=== PATIENT | male | born 1950 | race Caucasian/White ===

== ENCOUNTER 2020-11-28 02:25 | Day surgery (SDC) | payer MEDICARE, SELFPAY ==
[2020-11-28] VITALS (11 sets, daily range): BP systolic 84–119; BP diastolic 43–63; PULSE 62–86; RESP 15–21; TEMP 36.8; O2SAT 93–100; BMI 32.8
--- NOTE | 2020-11-28 09:23 | WPDMODSED ---
Moderate Sedation Note-Pt Data Patient Data Diagnosis: CVA, history of TAVR Present Complaint: As above Procedure to be performed/Plan: 1. Multiplanar transesophageal echocardiography with pulse wave, color flow Doppler 2. Agitated saline study 3. Moderate sedation Allergies Allergy/AdvReac Type Severity Reaction Status Date / Time No Known Allergies Allergy Verified 11/11/20 11:24 Home Medications Medication Instructions Recorded Confirmed Type aspirin 81 mg tablet,delayed 81 mg PO DAILY 01/25/19 11/11/20 History release cetirizine 10 mg tablet 10 mg PO DAILY PRN tablet 01/25/19 11/11/20 History fluticasone furoate 27.5 2 spray NASAL DAILY 01/25/19 11/11/20 History mcg/actuation nasal spray,suspension metformin 1,000 mg tablet 1,000 mg PO BID 01/25/19 11/11/20 History budesonide-formoterol HFA 80 2 puff INHALATION Q12H 04/26/20 11/11/20 History mcg-4.5 mcg/actuation aerosol inhaler empagliflozin 25 mg tablet 25 mg PO DAILY 04/26/20 11/11/20 History lisinopril 40 mg tablet 40 mg PO DAILY 04/26/20 11/11/20 History tiotropium bromide 1.25 2 puff INHALATION DAILY 04/26/20 11/11/20 History mcg/actuation mist for inhalation albuterol sulfate 90 mcg/actuation 1 inh INHALATION Q4H 11/01/20 11/11/20 History aerosol inhaler apixaban 5 mg tablet 5 mg PO BID 11/01/20 11/11/20 History atorvastatin 80 mg tablet 40 mg PO DAILY tablet 11/01/20 11/11/20 History cilostazol 50 mg tablet 50 mg PO BID 11/01/20 11/11/20 History insulin aspart U-100 100 unit/mL 5 unit SUB-Q BID ml 11/01/20 11/11/20 History (3 mL) subcutaneous pen insulin degludec 100 unit/mL (3 14 unit SUB-Q DAILY ml 11/01/20 11/11/20 History mL) subcutaneous pen metoprolol tartrate 25 mg tablet 12.5 mg PO BID tablet 11/01/20 11/11/20 History ergocalciferol (vitamin D2) 1,250 50,000 unit PO WEEKLY #12 cap 11/23/20 Rx mcg (50,000 unit) capsule finasteride 5 mg tablet 5 mg PO DAILY #90 tablet 11/23/20 Rx Sedation/Anesthesia: No previous sedation/anesthesia problems (including family history). [facility] Past Medical History Medical History Allergic rhinitis Atherosclerotic heart disease of [place] coronary artery without angina pectoris Chronic obstructive pulmonary disease, unspecified CVA (cerebral vascular accident) Malignant neoplasm of prostate Other hyperlipidemia PVD (peripheral vascular disease) Type 2 diabetes mellitus with other circulatory complications Surgical History Surgical History History of colonoscopy Hx of tonsillectomy Family History Family History Mother Cerebrovascular accident Family history of diabetes mellitus in first degree relative Other Acute myocardial infarction Diabetes mellitus Family history of cardiovascular disease Social History Social History Smoking status: Current every day smoker Second hand tobacco smoke exposure: Yes Alcohol intake: current Substance use: never Substance use type: does not use Gender identity (if verbalized by the patient): Male Mod Sed Physical Exam Physical Exam Pre Procedural Exam: Normal: Appearance, Eyes, Ears, Nose, Neck, Airway, Lungs, Heart Size, Heart Rate, Heart Rhythm, Neuro Exam, Extremities and Skin and Variation: Throat (Poor dentition) Hours since solid foods: 12 Hours since liquid intake: 12 Mallampati Classification: class II ASA Classification/Sedation ASA Classification/Sedation ASA Class: II Emergent: No Risks: Risks, benefits and alternatives explained and patient/family accepted plan for sedation. Patient re-evaluated immediately prior to sedation.
--- NOTE | 2020-11-28 09:25 | PM.IMHP ---
H&P: HPI History of Present Illness Date/Time: 11/28/20 09:25 Chief Complaint: History of stroke. Narrative: 70-year-old with coronary disease and history of stroke. He also has a pacemaker. Recent TAVR. Here for ARVIND further evaluation of his CVA Review of Systems Review of Systems: All systems reviewed & are unremarkable except as noted in HPI and below PMFSH Past Medical History Medical History Allergic rhinitis Atherosclerotic heart disease of [place] coronary artery without angina pectoris Chronic obstructive pulmonary disease, unspecified CVA (cerebral vascular accident) Malignant neoplasm of prostate Other hyperlipidemia PVD (peripheral vascular disease) Type 2 diabetes mellitus with other circulatory complications Surgical History Surgical History History of colonoscopy Hx of tonsillectomy Family History Family History Mother Cerebrovascular accident Family history of diabetes mellitus in first degree relative Other Acute myocardial infarction Diabetes mellitus Family history of cardiovascular disease Social History Social History Smoking status: Current every day smoker Second hand tobacco smoke exposure: Yes Alcohol intake: current Substance use: never Substance use type: does not use Gender identity (if verbalized by the patient): Male Meds Home Medications and Allergies Home Medications Medication Instructions Recorded Confirmed Type aspirin 81 mg tablet,delayed 81 mg PO DAILY 01/25/19 11/11/20 History release cetirizine 10 mg tablet 10 mg PO DAILY PRN tablet 01/25/19 11/11/20 History fluticasone furoate 27.5 2 spray NASAL DAILY 01/25/19 11/11/20 History mcg/actuation nasal spray,suspension metformin 1,000 mg tablet 1,000 mg PO BID 01/25/19 11/11/20 History budesonide-formoterol HFA 80 2 puff INHALATION Q12H 04/26/20 11/11/20 History mcg-4.5 mcg/actuation aerosol inhaler empagliflozin 25 mg tablet 25 mg PO DAILY 04/26/20 11/11/20 History lisinopril 40 mg tablet 40 mg PO DAILY 04/26/20 11/11/20 History tiotropium bromide 1.25 2 puff INHALATION DAILY 04/26/20 11/11/20 History mcg/actuation mist for inhalation albuterol sulfate 90 mcg/actuation 1 inh INHALATION Q4H 11/01/20 11/11/20 History aerosol inhaler apixaban 5 mg tablet 5 mg PO BID 11/01/20 11/11/20 History atorvastatin 80 mg tablet 40 mg PO DAILY tablet 11/01/20 11/11/20 History cilostazol 50 mg tablet 50 mg PO BID 11/01/20 11/11/20 History insulin aspart U-100 100 unit/mL 5 unit SUB-Q BID ml 11/01/20 11/11/20 History (3 mL) subcutaneous pen insulin degludec 100 unit/mL (3 14 unit SUB-Q DAILY ml 11/01/20 11/11/20 History mL) subcutaneous pen metoprolol tartrate 25 mg tablet 12.5 mg PO BID tablet 11/01/20 11/11/20 History ergocalciferol (vitamin D2) 1,250 50,000 unit PO WEEKLY #12 cap 11/23/20 Rx mcg (50,000 unit) capsule finasteride 5 mg tablet 5 mg PO DAILY #90 tablet 11/23/20 Rx Allergies Allergy/AdvReac Type Severity Reaction Status Date / Time No Known Allergies Allergy Verified 11/11/20 11:24 Exam Narrative: Alert Const: General: comfortable and no acute distress HENMT: General nose exam: no epistaxis Eyes: Sclera: sclerae normal Neck: Neck: no JVD Resp: Auscultation: clear to auscultation bilaterally Cardio: Rate: regular rate GI: GI Palp: Yes Soft to palpation Skin: General skin exam: normal color Neuro: Speech: normal speech Extrem: General: normal to inspection Psych: Mental Status: mental status grossly normal Assessment and Plan Assessment and plan (1) S/P TAVR (transcatheter aortic valve replacement): Code(s): Z95.2 - Presence of prosthetic heart valve Status: Acute (2) History of CVA (cerebrov
[2020-11-28 11:01] LABS: Glucose Point of Care 104 mg/dl (65-105)
--- NOTE | 2020-11-28 11:02 | P.PCNTEE_ITS ---
ARVIND TransEsophageal Echocardiogram Date of procedure: 11/28/20 Procedure Type: 1. Multiplanar transesophageal echocardiography with pulse wave and color-flow Doppler 2. Agitated saline study 3. Moderate sedation Diagnosis: 1. CVA, history of TAVR Indications: CVA, history of TAVR, coronary disease Image Quality: Good Findings: After discussing risks, benefits alternatives of the procedure the patient agreeable via verbal and written informed consent. Risks discussed included esophageal rupture perforation, bleeding, sore throat, need for emergent surgery, . Informed consent was signed by patient as well as patient's After establishing continuous telemetry monitoring, pulse ox Landon and serial blood pressure assessments, time-out was taken and procedure was started. Procedure start time 10:18 a.m. Procedure stop time 10:35 a.m. Medications used 2 mg of Versed and 25 mcg fentanyl given in divided dosages Patient was monitored and medications were administered by Kimber Sadler RN Complications: None Blood loss: None Findings: Normal left ventricular size and function with mild LVH. Ejection fraction estimated 60-65%. Normal left and right atrial sizes. Normal right ventricular size and function. Pacemaker wires are noted renal the right-sided chambers. Left atrial appendage is normal without mass or thrombus of pulse- wave velocities of greater than 100 centimeters/second. Mitral valve appears normal with mild mitral regurgitation. The aortic valve bioprosthesis is present and appears normal. Leaflets are opening normally. No aortic insufficiency. Tricuspid valve is normal with mild tricuspid regurgitation. Pulmonic valve is grossly normal without significant pulmonic insufficiency. Atrial septum is thin and hypermobile with agitated saline evidence of shunting consistent with a small PFO. No pericardial effusion. Aortic root is grossly normal and there is mild artherosclerotic plaquing seen within the aorta itself. Conclusions: 1. Normal left ventricular size and function 2. Mild tricuspid and mitral regurgitation 3. Aortic valve bioprosthesis appears normal 4. Positive agitated saline study consistent with a patent foramen ovale 5. Moderate sedation
--- NOTE | 2020-11-28 13:11 | SUR.PHASEII ---
1130 Viji Morales DIRECTOR OF ACADEMIC SUPPORT notified that pts pressure has been soft post ARVIND. 150ml NS bolus given per her request, pt to be discharged when SBP>100. 1245 D/C instructions reviewed with patient and pts , questions answered both verbalize understanding, IV d/c'd, cath intact, pressure applied, no bleeding noted. Pt transported via wheelchair to [facility] where his drove him home in private vehicle.
== END 2020-11-28 13:00 | disposition home or self-care (01) ==
PROVIDERS: PCP Family Medicine; Visit Provider Internal Medicine Cardiovascular Disease
PROC: (CPT 93312; principal; 2020-11-28 10:00)
DX: I25.10 Atherosclerotic heart disease of native coronary artery without angina pectoris (principal); I34.0 Nonrheumatic mitral (valve) insufficiency; I36.1 Nonrheumatic tricuspid (valve) insufficiency; J44.9 Chronic obstructive pulmonary disease, unspecified; E78.5 Hyperlipidemia, unspecified; E11.51 Type 2 diabetes mellitus with diabetic peripheral angiopathy without gangrene; Z95.2 Presence of prosthetic heart valve; Z79.01 Long term (current) use of anticoagulants; Z79.82 Long term (current) use of aspirin; Z79.84 Long term (current) use of oral hypoglycemic drugs; Z79.51 Long term (current) use of inhaled steroids; Z79.4 Long term (current) use of insulin; Z86.73 Personal history of transient ischemic attack (TIA), and cerebral infarction without residual deficits; Z85.46 Personal history of malignant neoplasm of prostate; Z72.0 Tobacco use
CPT/HCPCS: 82948; 93312; 93320; 93325; J2250; J3010; J7040

== ENCOUNTER 2021-03-01 08:42 | Outpatient (RCR) | payer OTHER, SELFPAY ==
--- NOTE | 2021-03-01 10:26 | PTOPEVAL ---
Thank you for referring William Garcia to [facility].? The patient is scheduled to be seen for therapy? _2___x/week for 8 visits. Please review, sign, date and return this plan of care FUNMILAYO. I agree with and certify that the following plan of care is medically necessary. Referring Physician Date Admitting Provider: Attending Provider: DANIEL LILLY Referring Provider: *PT Outpatient Evaluation Start: 03/01/21 09:10 Freq: Status: Active Protocol: Document 03/01/21 09:11 [place] (Rec: 03/01/21 10:25 [place] [email or web address]) Therapy Assessment Status Assessment Status Assessment Status Evaluation Evaluation Information Problem Diagnosis weakness, post CVA Onset 11/02/20 Subjective Information Pt. is present. She Query Text:As Reported By Patient/ reports that pt. demonstrated Family stroke symptoms on 11/02/20, and was discarhged from the hospital in 24 hours. He suffered similar symptoms on . He was sent to [facility] and underwent testing. He was again discharged from the hospital within 24 hours. Pt. states that pt. is capable of feeding and dressing himself. He reports that he is walking with a cane currently. Pt. reports that he uses his cane mostly for going up and down the steps. He reports that he no longer drives. He was completing house work prior to the stroke and no longer participates in outdoor work. He reports that his goal is to be able to return to all his normal activities. Prior Level of Function Activity Level (Last 3 Months) Occupation retired Hand Dominance Right Activity of Daily Living Ability Independent Indoor/Home Mobility Needs Some Help Community Mobility Needs Some Help Stairs Ability Independent Functional Cognition (Planning, Shopping Needs Some Help , Taking Medications) Cooking No Cleaning No Laundry No Shopping No Driving No Comments Additional Prior Level of Function Pt.
--- NOTE | 2021-03-01 11:08 | OTOPEVAL ---
Thank you for referring William Garcia to [facility].? The patient is scheduled to be seen for therapy? ____x/week for ___ weeks. Please review, sign, date and return this plan of care FUNMILAYO. I agree with and certify that the following plan of care is medically necessary. Referring Physician Date Admitting Provider: Attending Provider: DANIEL LLILY Referring Provider: *OT Outpatient Evaluation Start: 03/01/21 09:35 Freq: Status: Active Protocol: Document 03/01/21 09:36 [facility] (Rec: 03/01/21 11:07 [facility] [place] [id number]) Therapy Assessment Status Assessment Status Assessment Status Evaluation Outpatient Past Medical History Cardiovascular History Hx Pacemaker Yes Evaluation Information Problem Diagnosis B UE weakness Onset 11/02/20 Cause CVA Subjective Information Patient transitions from PT Query Text:As Reported By Patient/ evaluation to OT with his Family present. They report that patient presented with stroke symptoms on 11/02/20 and 11/20/20 and was discharged from hospital within 24 hours after each episode. Patient and his report that since the onset in October he has not been driving, is forgetful and more sedentary. Both patient and his report goal of having patient be able to do more. They also mention concerns with patient's memory , specifically short term memory. Prior Level of Function Activity Level (Last 3 Months) Occupation retired Hand Dominance Right Activity of Daily Living Ability Independent Indoor/Home Mobility Independent Community Mobility Independent Stairs Ability Independent Functional Cognition (Planning, Shopping Independent , Taking Medications) Cooking Yes Cleaning No Laundry No Shopping Yes Driving Yes Home Setting Home Type House Environmental Barriers Stairs, 2-4 Living Situation With Spouse Mobility Assistive Devices (Used Last 3 Cane Months) Bathroom Environment Bathtub, Standard Prior Cognition/Communication Prior Communication Level No Impa
--- NOTE | 2021-07-18 16:38 | PCOTNOTE ---
Patient completed 2/4 OT sessions and did not schedule additional sessions. See last treatment note for status at time of discharge. MS
== END 2021-03-23 10:19 | disposition home or self-care (01) ==
LOC: CHSPT 08:42
DX: M62.81 Muscle weakness (generalized) (principal)
CPT/HCPCS: 97110; 97112; 97161; 97165; 97530

== ENCOUNTER 2024-11-12 11:14 | Outpatient (CLI) | payer MEDICARE, SELFPAY ==
--- OUTSIDE RECORDS SUMMARY | 2018-05-14 05:00 | XMS_ITS | Continuity of Care Document ---
Author Organization [facility] Address [address] [place] [address] Phone Care Team Providers Care Parks Recreation Coordinator Name Role Phone Marc Smiley MD Unavailable Unavailable Allergies, Adverse Reactions, Alerts Substance Reaction Status Criticality No Known Allergies Active No Inform ation Medications Medication Instructions Dosage Effective Dates (start - stop) Status Comments CILOSTAZOL (unknown strength) take 2 tablet by oral route 2 times every day 1/2 hour before or 2 hours after breakfast and dinner Not Available - Active METOPROLOL SUCCINATE (unknown strength) take 1 tablet by oral route every day Not Available - Active LISINOPRIL (unknown strength) take 1 tablet by oral route every day Not Available - Active FINASTERIDE (unknown strength) take 1 tablet by oral route every day Not Available - Active ATORVASTATIN CALCIUM (unknown strength) take 1 tablet by oral route every day Not Available - Active aspirin 81 mg chewable tablet chew 1 tablet by oral route every day 81 MG - Active ProAir HFA 90 mcg/actuation aerosol inhaler inhale 2 puff by inhalation route every 4 - 6 hours as needed - Active VITAMIN D2 (unknown strength) take 1 capsule by oral route every week Not Available - Active Anoro Ellipta 62.5 mcg-25 mcg/actuation powder for inhalation inhale 1 puff by inhalation route every day at the same time each day 1.00 puff - Active METFORMIN HCL (unknown strength) take 1 tablet by oral route 2 times every day with morning and evening meals Not Available - Active Plavix 75 mg tablet take 1 tablet by oral route every day 75 MG - Active Novolog Flexpen U-100 Insulin aspart 100 unit/mL subcutaneous inject by subcutaneous route per prescriber's instructions. Insulin dosing requires individualization. 0.00 - Active Tresiba U-100 Insulin 100 unit/mL subcutaneous solution inject by subcutaneous route as per insulin protocol 0.00 - Active Procedures Procedure Date RADEX SPI CRV 2/3 VIEWS RADEX SPI LUMBOSAC 2/3 VIEWS DISABILITY EXAMINATION Advance Directives Directive Yes / No Effective Date File Name Other Directive No N/A N/A WARNING:The information contained in this section is historical and is provided for information only and does not constitute a legal document or any assurance that the information is still accurate. Please verify the information with the marlow of the legal document before using it for clinical purposes. Encounters Encounter Description Practice Location Reason(s) For Visit Diagnoses Date Provider Providers Copied on Encounter DISABILITY EXAMINATION [facility] , [address] [facility] [address] [address], [place], [address], tel:[phone] [facility] My neck hurts alot and cracks and pops (chief complaint) Neck painBody mass index (BMI) 31.0-31.9, adultLow back pain Baljit Tran. [address] [facility] [address] , [place], [place], [id number]. tel:[phone] Family History Family Member Type Diagnosis Age At Onset Brother Problem (finding) chronic obstructive maría elena g disease Sister Problem (finding) Diabetes mellitus Sister Problem (finding) disorder of lung Brother Problem (finding) malignant neoplasm of l henri Mother Problem (finding) stroke Father Problem (finding) Myocardial infarction Mother Problem (finding) hypertension Father Problem (finding) Diabetes mellitus Mother Problem (finding) Diabetes mellitus Immunizations Vaccine Date Status Comments Pneumo (2 yrs or older)(PPV) administered Source: Other Provider Payers Payer name Insurance type Covered constitution party ID Authoriza tion(s) No Information Social History Type Description Quantity Date Captured Comments Alcohol Use Details No Caffeine Use Details Tobacco Use Status Ex-cigarette smoker 019 Smoking Status Former smoker Smoking Tobacco Use Details Cigarette: Age Stopped: 55 Cigarette: No Details Available Sex Male Vital Signs Date / Time: Height Weight BMI Pulse Rate Blood Pressure Temperature Respiratory Rate Body Surface Area Head Circumference Head Circ. Percentile Wt./Saeid. Percentile BMI percentile Pulse Ox Inhaled Ox 10:46 AM 63.00 in 79.379 kg (175.00 lbs) 31.0 0 kg/m eter (2) 114/70 mm[Hg] Chief Complaint And Reason For Visit From encounter dated '05/14/2018 10:00'. My neck hurts alot and cracks and pops (chief complaint) Reason For Referral Reason For Referral No Information Plan Of Treatment Date Type Action Status Referral Ordered: RADEX SPI LUMBOSAC 2/3 VIEWS ordered Referral Ordered: RADEX SPI CRV 2/3 VIEWS ordered History Of Present Illness Encounter Date Complaint History Of Prese nt Illness My neck hurts alot and cracks an d pops Functional Status Date Functional Assessmen t Pain Score 6/10 Instructions Date Instruction Additional Infor mation Dietary needs education Related to Body mass index (BMI) 31.0-31.9, adult Assessments Type Assessment Date assessment Neck pain assessment Body mass index (BMI) 31.0-31.9, adult assessment Low back pain Patient Care Teams Name Effective Dates (start - stop) Status Members No Information
--- OUTSIDE RECORDS SUMMARY | 2024-08-04 06:45 | XMS_ITS | Encounter Summary ---
Author Name [facility] [place] [facility] [place] Address [address] [place] [address] Care Team Providers Care Milling Operator Name Role Phone DANIEL LILLY Primary Care Provider Mine zapata Insurance Providers: All historical and current Section Date Range: From patient's date of to the date document was created. This section includes the names of all active insurance providers for the patient. Insurance Provider Type of Coverage Plan Name Start of Policy Coverage End of Policy Coverage Group Number Member ID Insurance Provider's Telephone Number Policy Dickens's Name Patient's Relationship to Policy Dickens AETNA [facility] (WNR) MEDICARE ADVANTAGE [facility] ([facility] Mar 18, 2023 [id number] [phone] [id number] CHAY HUERTA PATIENT AETNA [facility] (WNR) MEDICARE ADVANTAGE [facility] ([facility]) Sep 16, 2019 [id number] CHAY HUERTA PATIENT Selected Encounter This section includes the information on record at [place] for the Encounter. Date/Time Encounter Type Encounter Description Reason Provider Source August 04, 2024 11:45 AM OFFICE O/P EST HI 40 MIN PRIMARY CARE/MEDICINE ICD-10-CM I50.9 Heart failure, unspecified MIREILLE LILLY MD [employer] Encounter Template Text not used by [place] Assessments - Encounter Diagnoses This section includes the primary and secondary diagnoses documented for the Encounter. Date/Time Primary/Secondary Diagnosis Diagnosis Name Provider Source August 04, 2024 11:55 AM PRIMARY Heart failure, unspecified [facility] August 04, 2024 11:55 AM SECONDARY Athscl heart disease of [place] coronary artery w/o ang pctrs [facility] August 04, 2024 11:55 AM SECONDARY Benign prostatic hyperplasia without lower urinry tract symp [facility] August 04, 2024 11:55 AM SECONDARY Cerebral infarction, unspecified [facility] August 04, 2024 11:55 AM SECONDARY Chronic obstructive pulmonary disease, unspecified [facility] August 04, 2024 11:55 AM SECONDARY Deficiency of other specified B group vitamins [facility] August 04, 2024 11:55 AM SECONDARY Dependence on supplemental oxygen [facility] August 04, 2024 11:55 AM SECONDARY Nonrheumatic aortic (valve) stenosis [facility] August 04, 2024 11:55 AM SECONDARY Presence of cardiac pacemaker [facility] August 04, 2024 11:55 AM SECONDARY Sleep apnea, unspecified [facility] August 04, 2024 11:55 AM SECONDARY Type 2 diabetes mellitus without complications [facility] Plan of Treatment: Future Appointments (+ 6 months) and Future Tests (+/- 45 days) The Plan of Treatment section includes future care activities for the patient from all [facility]. This section includes future appointments and future orders which are active, pending or scheduled. Future Appointments This section includes appointments that were scheduled to occur 6 months from the date of the Encounter, up to a maximum of 20 appointments. The data comes from all [facility]. Appointment Date/Time Appointment Type Appointme nt Facility Name Nov 24, 2024 09:30 AM AMBULATORY - SURGERY . [facility] Lab Results: +/- 30 days of the encounter This section includes the Chemistry and Hematology Lab Results on record with [place] for the patient. Radiology Reports and Pathology Reports are provided separately, in subsequent sections. Lab Results This section contains the Chemistry/Hematology Results that were resulted 30 days before or 30 daysafter the date of the Encounter. Date/Time Source Result Type Result - Unit Interpretation Reference Range Specimen Type Comment August 04, 2024 11:59 AM [facility] TSH (MA-PB) SERUM Specimen Type: SERUM No comment entered. Ordering Provider: LADAN LILLY MD Report Released Date/Time: Jan 01, 2024 11:07 AM Reporting Lab: [facility] [address] [place] [phone] Performing Lab: [address] [phone] TSH 2.232 u[IU]/mL 0.470-5.000 August 04, 2024 11:59 AM [facility] B12 SERUM Specimen Type: SERUM No comment entered. Ordering Provider: DANIEL LILLY MD Report Released Date/Time: Jan 01, 2024 11:07 AM Reporting Lab: [facility] [address] [place] [phone] Performing Lab: [address] [phone] B12 156 pg/mL L 213-816 August 04, 2024 11:59 AM [facility] HGA1C BLOOD Specimen Typ e: BLOOD No comment entered. Ordering Provider: DANIEL LILLY MD Report Released Date/Time: Jan 01, 2024 11:07 AM Reporting Lab: [facility] [address] [place] [phone] Performing Lab: [facility] [address] [place] [phone] HGA1C 8.1 H 4.0-6.0 August 04, 2024 11:59 AM [facility] VITAMIN D, 25-HYDROXY SERUM Specimen Type: SE RUM No comment entered. Ordering Provider: DANIEL LILLY MD Report Released Date/Time: Jan 01, 2024 11:07 AM Reporting Lab: [facility] [address] [place] [phone] Performing Lab: [facility] [address] [place] [phone] VITAMIN D, 25-HYDROXY 42.3 ng/mL 30-96 August 04, 2024 11:59 AM [facility] URINE ALBUMIN PANEL (MA) URINE Sp ecimen Type: URINE No comment entered. Ordering Provider: DANIEL LILLY MD Report Released Date/Time: Jan 01, 2024 11:07 AM Reporting Lab: [place] [phone] Performing Lab: [place] [phone] uACR (PB-MA) 105.0 mg/g H <=30 CREATININE (URINE)(MA) 28 mg/dL URINE ALBUMIN (MA) 2.9 mg/dL August 04, 2024 11:59 AM [facility] URINALYSIS (MA-EV) URINE Specimen Type: URINE Comment: Microscopic not indicated Ordering Provider: DANIEL LILLY MD Report Released Date/Time: Jan 01, 2024 11:07 AM Reporting Lab: [address] [phone] Performing Lab: [place] [phone] URINE COLOR Colorless Yellow SPECIFIC GRAVITY 1.011 UROBILINOGEN Normal mg/dL 0.1-1.0 U.BILIRUBIN Negative mg/dL Negative U.KETONES Negative mg/dL Negative U.PROTEIN Negative mg/dL Negative U.PH 6.5 5.0-8.0 APPEARANCE Clear Clear U.BLOOD Negative mg/dL Negative U.NITRITE Negative mg/dL Negative U.LEUK.EST. Negative Negative URINE GLUCOSE (PB-MA-EV) >1000 mg/dL H Neg ative August 04, 2024 11:59 AM [facility] LIPID PANEL (MA) PLASMA Specimen T ype: PLASMA No comment entered. Ordering Provider: DANIEL LILLY MD Report Released Date/Time: Jan 01, 2024 11:07 AM Reporting Lab: [address] [phone] Performing Lab: [place] [phone] CHOLESTEROL 127 mg/dL 0-200 TRIGLYCERIDE 89 mg/dL 0-150 CALCULATED LDL 57 mg/dL HDL(New) 52 mg/dL >=40 August 04, 2024 11:59 AM [facility] COMPREHENSIVE METABOLIC PANEL PLASMA Specimen Type: PLASMA No comment entered. Ordering Provider: DANIEL LILLY MD Report Released Date/Time: Jan 01, 2024 11:07 AM Reporting Lab: [address] [phone] Performing Lab: [address] [phone] CREATININE 1.1 mg/dL .7-1.3 UREA NITROGEN 19 mg/dL 9.0-25.0 GLUCOSE 144 mg/dL H 72-99 SODIUM 140 meq/L 136-145 POTASSIUM 4.7 meq/L 3.5-5 CHLORIDE 103 meq/L 98-107 CARBON DIOXIDE 25 meq/L 22-31 CALCIUM 9.0 mg/dL 8.4-10.4 PROTEIN 7.1 g/dL 6.0-8.6 ALBUMIN 4.3 g/dL 3.4-5.0 TOTAL BILIRUBIN 0.3 mg/dL 0.2-1.2 ALKALINE PHOSPHATASE 44 U/L 40-150 AST/SGOT 12 U/L 5-34 ALT/SGPT 10 U/L 8-40 EGFR (CKD-EPI 2020) 70 August 04, 2024 11:59 AM [facility] CBC BLOOD Specimen Type: BLOOD No comment entered. Ordering Provider: DANIEL LILLY MD Report Released Date/Time: Jan 01, 2024 11:07 AM Reporting Lab: [address] [phone] Performing Lab: [address] [phone] WBC 7.5 10*3/uL 3.6-11.2 RBC 4.13 10*6/uL 4.10-5.70 HGB 10.7 g/dL L 13.1-16.8 HCT 36.9 L 38.2-48.4 MCV 89.3 fL 80.0-100.0 MCH 25.9 pg L 27.0-34.0 MCHC 29.0 g/dL L 33.0-36.0 PLT 273 10*3/uL 150-400 MPV 11.2 fL 7.5-11.2 RDW 18.5 H 11.8-15.1 LYMPHOCYTES, AUTO % 15.0 MONOCYTES, AUTO % 9.7 NEUTROPHILS, AUTO % 71.9 EOSINOPHILS, AUTO % 2.1 BASOPHILS, AUTO % 0.9 LYMPHOCYTES, ABSOLUTE 1.13 10*3/uL 0.77- 4.50 MONOCYTES, ABSOLUTE 0.73 10*3/uL 0.19-0. 8 NEUTROPHILS, ABSOLUTE 5.42 10*3/uL 2.10- 8.00 EOSINOPHILS, ABSOLUTE 0.16 10*3/uL 0.00- 0.60 BASOPHILS, ABSOLUTE 0.07 10*3/uL 0.00-0. 20 IMMATURE GRANS, AUTO % 0.4 IMMATURE GRANS, AUTO ABS 0.03 10*3/uL 0. 00-0.05 Vital Signs: All taken on the encounter date This section contains inpatient and outpatient Vital Signs collected on the date of the Encounter. Date/Time Temperature Pulse Blood Pressure Respiratory Rate SP02 Pain Height Weight Body Mass Index Source August 04, 2024 11:40 AM 98.1 82 122/62 18 92 0 169 30 [facility] Social History: Smoking Status (Most current) and Tobacco Use (All prior to encounter date) This section includes the most current, and the historical, smoking and tobacco- related health factors from the [place] facility where the Encounter took place. Current Smoking Status This section includes the most current smoking, or tobacco-related health factor, from the [place] facility where the Encounter took place. Date/Time Current Smoking Status Comment Samantha ity August 04, 2024 11:45 AM [place]-TOBACCO USE FORMER CIGARETTES [facility] Tobacco Use History This section includes a history of the smoking, or tobacco-related health factors, that were collected on or before the date of the Encounter. The data comes from the [place] facility where the Encounter took place. Date/Time Smoking Status/Tobacco Use Comment F acelbert August 04, 2024 11:45 AM [place]-TOBACCO USE FORMER CIGARETTES [facility] Jun 10, 2023 10:15 AM VA-TOBACCO FORMER USER [facility] Jun 10, 2023 10:15 AM [place]-TOBACCO QUIT 15 YRS OR MORE [facility] Dec 22, 2021 11:00 AM VA-TOBACCO NEVER USED [facility] Dec 22, 2021 10:00 AM VA-TOBACCO FORMER USER [facility] Dec 22, 2021 10:00 AM [place]-TOBACCO QUIT 15 YRS OR MORE [facility] Dec 19, 2020 12:30 PM [place]-TOBACCO FORMER USER [facility] Dec 19, 2020 12:30 PM VA-TOBACCO QUIT 5 TO < 15 YRS [facility] Advance Directives: All historical and current Section Date Range: From patient's date of to the date document was created. This section includes ALL of a patient's completed or amended [place] Advance and Rescinded Directives. The entries below indicate that a directive exists for the patient, but an actual copy is not included with this document. The data comes from all [place] facilities. Date Advance Directives Provider Source Mar 09, 2024 ADVANCE DIRECTIVE [facility] Encounter Notes: All associated encounter notes This section contains the clinical notes associated to the Encounter. Date/Time Encounter Note(s) Provider Source August 05, 2024 04:50 AM ADDENDUM: LOCAL TITLE: Addendum STANDARD TITLE: ADDENDUM DATE OF NOTE: AUGUST 05, 2024@04:50:33 ENTRY DATE: AUGUST 05, 2024@04:50:35 AUTHOR: DANIEL LILLYIGNER: URGENCY: STATUS: COMPLETED * * * * LABS EVALUATION NOTE * * * * DATE: AUGUST 05, 2024 LABS PERFORMED ON: August 04 WERE REVIEWED. BLOOD August 04 Dec 31 Reference 2024 2023 11:59 11:10 Units Ranges - HBA1C 8.1 H 7.9 H % 4 - 6 Uncontrolled DM Now on Novolog 12 units am, 10 units noon and 12 units PM, Metformin 1000 mg BID; Lantus 10 units q daily, Jardiance 25 mg daily and Dulaglutide 1.5 mg q weekly; pls verify if still seeing private decision unit rn, Dr. Rojas Mcguire insulin needs to be adjusted otherwise, will consult clinical pharmacist CMP, lipids normal UA >1000 glucose, on Jardiance microal: 105, re-ordered Lisinopril CBC with stable Hgb/Hct; has anemia of chronic disease PLEASE INFORM PATIENT ABOUT ABOVE RESULTS AND SEND COPY OF RESULTS TO PATIENT. /es/ DANIEL LILLY MD PHYSICIAN PRIMARY CARE Signed: 08/05/2024 04:55 Receipt Acknowledged By: 08/05/2024 15:48 /jimy/ BRYCE BERNAL, RN --- Original Document --- 08/04/24 [facility] NOTE MA: 's identity was confirmed with two (2) forms of identification: Full Name, Full Social Security Number, or Date of . CHIEF COMPLAINT: follow-up of medical problems HISTORY PRESENT ILLNESS: Patient is a 74 year old vet who's here in clinic today for follow-up. He is accompanied by his daughter. They are trying to set him up in [facility] but cannot be accomodated at this time. He's been a resident of [facility] in [facility]. Meds are sent to daughter's house and taken to the facility. He had influenza A last may and was septic at that time. He's been on continuous O2 since hopsital discharge. Trying to request Pulmonary appt through community care. Currently under the care of decision unit rn Dr. Mcguire for his diabetes mellitus. History of recurrent strokes, CAD, CHF, Diabetes mellitus, atrial fib, lung nodules, COPD, h/o TAVR last August 2020 for severe aortic stenosis. Has history of prostate cancer and sees Dr. Gonzalez. Denies any falls or recent ER visits. NON VA-CARE PCP: DR. ANT MATTSON, in [place] Pharmacovigilance Scientist: Dr.Matthew Sims same group Ad Operations Specialist: Dr Porter in [place] [facility] URologist: Dr. Gonzalez in [place] Body Technician: Dr.Fraid Mcguire ALLERGIES: SEMAGLUTIDE OUTPATIENT MEDICATIONS: Been reviewed with patient on today's visit, including dose, route, indication, and frequency. Active Outpatient Medications (including Supplies): Active Outpatient Medications Status 1) ALBUTEROL 90MCG (CFC-F) 200D ORAL INHL INHALE 2 PUFFS BY ACTIVE ORAL INHALATION FOUR TIMES A DAY NEEDED SHAKE WELL. RINSE MOUTHPIECE FREQUENTLY TO PREVENT CLOGGING. Indication: FOR COPD 2) APIXABAN 5MG TAB TAKE ONE TABLET BY MOUTH TWICE A DAY FOR ACTIVE ANTICOAGULATION 3) ATORVASTATIN CALCIUM 40MG TAB TAKE ONE TABLET BY MOUTH EVERY ACTIVE EVENING TO LOWER CHOLESTEROL 4) BREZTRI 160/9/4.8MCG/ACT 120D ORAL INHL INHALE 2 PUFFS ACTIVE INHALATION TWICE A DAY DIRECTED (CLEAN INHALER FOLLOWED BY 2 PRIMING PUFFS ONCE WEEKLY) Indication: FOR COPD 5) BRIEF,PROTECTIVE SUPER ABS LG ATTENDS USE 1 BRIEF TO ACTIVE AFFECTED AREA(S) ONCE A DAY NEEDED FOR INCONTINENCE 6) CETIRIZINE HCL 10MG TAB TAKE ONE TABLET BY MOUTH ONCE A DAY ACTIVE FOR ALLERGY SYMPTOMS. 7) CILOSTAZOL 50MG TAB TAKE ONE TABLET BY MOUTH TWICE A DAY ACTIVE TAKE 30 MINUTES BEFORE OR AT LEAST 2 HOURS AFTER FOOD. DO NOT TAKE WITH GRAPEFRUIT JUICE. 8) DULAGLUTIDE 1.5MG/0.5ML INJ PEN INJECT 1.5MG UNDER THE SKIN ACTIVE EVERY WEEK (ADMINISTER DOSE AT ANY TIME OF DAY, WITH OR WITHOUT MEALS) Indication: FOR DIABETES 9) EMPAGLIFLOZIN 25MG TAB TAKE ONE TABLET BY MOUTH ONCE A DAY ACTIVE PA CRITERIA MET 10) INSULIN,ASPART(EQV-NOVLG)100UN/ML FLXPEN INJECT 10 UNITS ACTIVE UNDER THE SKIN BEFORE BREAKFAST AND INJECT 8 UNITS BEFORE LUNCH AND INJECT 6 UNITS BEFORE SUPPER ADMINISTER 10 MINUTES BEFORE FOOD DIRECTED. REFRIGERATE UN-OPENED PENS. DISCARD CARTRIDGE 28 DAYS AFTER OPENING. Indication: FOR DIABETES 11) METFORMIN HCL 1000MG TAB TAKE ONE TABLET BY MOUTH TWICE A ACTIVE DAY WITH MEALS FOR BLOOD SUGAR CONTROL. TAKE WITH FOOD. AVOID ALCOHOL. DISCONTINUE BEFORE GETTING XRAY DYE. 12) METOPROLOL TARTRATE 50MG TAB TAKE ONE-HALF TABLET BY MOUTH ACTIVE TWICE A DAY FOR HEART/BLOOD PRESSURE. TAKE WITH OR IMMEDIATELY FOLLOWING FOOD. 13) NEEDLE,PEN 31G,5MM USE 1 NEEDLE UNDER THE SKIN FOUR TIMES A ACTIVE DAY FOR BOTH GLARGINE AND ASPART Indication: FOR INJECTION Active Non-VA Medications Status 1) Non-VA ASPIRIN 81MG EC TAB 81MG BY MOUTH ONCE A DAY ACTIVE 2) Non-VA CYANOCOBALAMIN 1000MCG TAB 1000MCG BY MOUTH ONCE A ACTIVE DAY Indication: FOR VITAMIN B12 SUPPLEMENTATION 3) Non-VA ERGOCALCIF 1,250MCG (D2-50,000UNIT) CAP [id number] BY ACTIVE MOUTH EVERY WEEK 16 Total Medications REVIEW OF SYSTEM: GENERAL: No fevers, sweats, shakes, chills, on continuous O2 HEENT: No diplopia, blurry vision, epistaxis or tinnitus, hearing loss CARDIOVASCULAR: No chest pain, dyspnea, edema, palpitations PULMONARY: No wheezing, cough, or night sweats GASTROINTESTINAL: No nausea, vomiting, diarrhea, abdominal pain, bleeding GENITOURINARY: No dysuria, hematuria, frequency, incontinence MUSCULOSKELETAL: No claudication, pain, paresthesia, back pain ENDOCRINOLOGIC: No excessive thirst, urination, heat or cold intolerance NEUROLOGIC: No seizures, dizziness, syncope, loss consciousness SKIN: No lesions, rash, lumps, pruritus PSYCH: No sleep difficulty, mood changes, anxiety, suicidal ideas OBJECTIVE PHYSICAL EXAM: (x ) Patient agrees to have a physical exam while at clinic today. ( ) Use of a Residential Sales Rep has been necessary during some parts of this exam. VITAL SIGNS: BP: 122/62 P: 82 R: 18 WT: 169 T: 98.1 HT: 92% (08/04/2024 11:40) BMI:30.0 GEN: elderly , in no acute distress, ambulatory, on continuous O2 EYES: Bilaterally reacting pupils, EOM intact, no davidson-orbital edema, clear sclera and conjuctiva ENT: Ear Canals clean and free of wax oropharynx is normal, no postnasal dischage, oral mucosa moist without lesions NECK: Supple, No JVD, no cervical adenopathy, no thyromegal LUNGS: decreased breath sounds, no wheezing, crackles or rhonchi CARDIAC EXAM: irregular rhythm, no rub, gallop, + systolic murmur over aortic area, + sternal scar from previous CABG ABDOMEN: Soft, protruberant non tender, no rebound or guarding, no palpable mass, nor fluid wave, bowel sounds are present EXTREMITIES: No pedal edema, clubbing or cyanosis, Normal ROM LABS: (x ) TO BE DONE TODAY, PATIENT WILL BE CONTACTED FOR ABNORMAL RESULTS. ( ) OUTSIDE LABS RESULTS BROUGHT BY PATIENT TO CLINIC ( ) NOTED AND SIGNIFICANT RESULTS DISCUSSED WITH PATIENT COPY GIVEN TO PATIENT ASSESSMENT AND PLAN: CHRONIC ATRIAL FIBRILLATION on Apixaban for stroke prevention and Metoprolol for rate control denies any missed doses check labs today DIABETES MELLITUS, check a1-c today Now on Novolog 12 units am, 10 units noon and 12 units PM, Metformin 1000 mg BID; Lantus 10 units q daily, Jardiance 25 mg daily and Dulaglutide 1.5 mg q weekly using Freestyle Avi for continuous glucose monitoring follows up with private decision unit rn, Dr. Rojas Mcguire CAD; H/O CABG x 4 in 2012;H/O CHF, well compensated H/O AVB; S/P PACEMAKER PLACEMENT on ASA, Lisinopril 40 mg daily and Metoprolol 25 mg BID DASH dietencourage H/O SEVERE SYMPTOMATIC AORTIC STENOSIS S/P TAVR 08/18/20 being followed up by [facility] Dr. Trevor Rajput on Lisinopril and Metoprolol denies any chest pain PVD, continue Cilostazol and walking exercises statin on board MIXED HYPERLIPIDEMIA, check lipid profile continue Atorvastatin and low chol diet H/O COLON POLYPS; had one done 2018 at [facility] declined repeat colonoscopy CHRONIC ALLERGIES, on Zyrtec and Flonase nasal spray VITAMIN D DEF, on Ergocalciferol check Vitamn D level today LEENA, uses his CPAP on a regular basis BPH WITHOUT LUTS PROSTATE CANCER follows up with private urologist, [facility] Gar [facility] Finasteride COPD now on continous o2 had influenza A last may and was septic H/O PULMONARY NODULE Being followed up by private chemist organic in [place] [facility] tolerating Breztri and Albuterol SIVAKUMAR CT SCAN OF CHEST 08/08/21 IMP: Left lower lobe peripheral 5 mm pulmonary nodule Mild mediastinallymphadenopathy Postprocedural changes in the mediastinum completed pulmonary Rehab requesting to be set up with pulmonary preferably in [facility] DEC[facility] MAKING OCCURRED DURING THIS VISIT WITH THE VETERAM. Questions answered and is agreeable with treatment plan. PLAN OF CARE HAS BEEN DISCUSSED WITH PATIENT, INCLUDING EXPECTED THERAPEUTIC BENEFITS AND POTENTIAL SIDE EFFECTS OF MEDICATIONS. PATIENT VERBALIZED UNDERSTANDING AND IS IN AGREEMENT WITH PLAN OF CARE MEDICATION RECONCILIATION DOCUMENTED AND UPDATED. RTC: FEB 2025 with labs on same day Patient advised to call the clinic with any concerns, questions or symptoms or make early appointment for new or persistent or worsening of sx. /jimy/ DANIEL LILLY MD PHYSICIAN PRIMARY CARE Signed: 08/04/2024 12:47 08/05/2024 ADDENDUM STATUS: COMPLETED Attempted to contact at telephone number listed in CPRS r/t notification of lab results. Message left to return call to clinic /jimy/ BRYCE BERNAL, RN Signed: 08/05/2024 08:33 08/05/2024 ADDENDUM STATUS: COMPLETED Attempted to contact at telephone number listed in CPRS r/t notification of lab results. Message left to return call to clinic. /jimy/ BRYCE BERNAL, RN Signed: 08/05/2024 15:36 LADAN LILLY MD [facility] August 04, 2024 12:00 PM EDUCATION NOTE: LOCAL TITLE: PATIENT EDUCATION DOCUMENTATION OR STANDARD TITLE: EDUCATION NOTE DATE OF NOTE: AUGUST 04, 2024@12:00 ENTRY DATE: AUGUST 04, 2024@12:00:30 AUTHOR: CHOLO VERNON COSIGNER: URGENCY: STATUS: COMPLETED Learning barriers and adjustments for barriers noted. No change Readiness to Learn The patient/caregiver is ready to learn and accepts patient education Assessment of baseline knowledge or understanding prior to education: Adequate knowledge, needs reinforcement Based upon patient/family knowledge or experience with disease process or change in condition the following education was provided to: Patient Patient given phone number for Primary care clinic and instructed to call with any changes in healthcare status or as needed The Patient was provided education on the following topics: Medication Level of Understanding: Good NO new medication(s) started Patient received information on the safe and effective use of medications. Instructed on medication name, dosage, purpose and most frequent adverse side effects. Patient instructed to read all material accompanying the meds for full details and to call Pharmacy or Primary Care clinic if they have questions. Tests, Consults and Procedures Level of Understanding: Good Labs ordered Patient instructed to complete release of information form if they would like a copy of lab results or access them 7 days after drawn through [employer] Effectiveness of education/outcome Patient/Caregiver verbalizes that education of above topics is understood through teach-back method (able to repeat back accurate content in their own words) rtc // Cholo Vernon LPN Primary Care, DOMINICK Signed: 08/04/2024 12:01 CHOLO VERNON [facility] August 04, 2024 11:59 AM MEDICATION MGT NOTE: LOCAL TITLE: MEDICATION RECONCILIATION (REVISED) OR STANDARD TITLE: MEDICATION MGT NOTE DATE OF NOTE: AUGUST 04, 2024@11:59 ENTRY DATE: AUGUST 04, 2024@11:59:41 AUTHOR: DANIEL LILLYIGNER: URGENCY: STATUS: COMPLETED AUGUST 04, 2024 CHAYEDDIE HUERTA [address] [place] [address] The Essential Med List for Review which includes the patient's active and pending VA prescriptions and if applicable, remote VA prescriptions, non-VA prescriptions, and discontinued VA prescriptions within the last 90 days and known allergies including local and remote allergies have been reviewed. Yes Allergies/ADR LOCAL AND REMOTE: FACILITY ALLERGY/ADR -------- No Remote Allergy/ADR Data available for this patient [facility] SEMAGLUTIDE The below is the most current list of medications from all sources that the should be taking: Active Outpatient Medications (including Supplies): Active Outpatient Medications Status 1) ALBUTEROL 90MCG (CFC-F) 200D ORAL INHL INHALE 2 PUFFS BY ACTIVE ORAL INHALATION FOUR TIMES A DAY NEEDED SHAKE WELL. RINSE MOUTHPIECE FREQUENTLY TO PREVENT CLOGGING. Indication: FOR COPD 2) APIXABAN 5MG TAB TAKE ONE TABLET BY MOUTH TWICE A DAY FOR ACTIVE ANTICOAGULATION 3) ATORVASTATIN CALCIUM 40MG TAB TAKE ONE TABLET BY MOUTH EVERY ACTIVE EVENING TO LOWER CHOLESTEROL 4) BREZTRI 160/9/4.8MCG/ACT 120D ORAL INHL INHALE 2 PUFFS ACTIVE INHALATION TWICE A DAY DIRECTED (CLEAN INHALER FOLLOWED BY 2 PRIMING PUFFS ONCE WEEKLY) Indication: FOR COPD 5) BRIEF,PROTECTIVE SUPER ABS LG ATTENDS USE 1 BRIEF TO ACTIVE AFFECTED AREA(S) ONCE A DAY NEEDED FOR INCONTINENCE 6) CETIRIZINE HCL 10MG TAB TAKE ONE TABLET BY MOUTH ONCE A DAY ACTIVE FOR ALLERGY SYMPTOMS. 7) CILOSTAZOL 50MG TAB TAKE ONE TABLET BY MOUTH TWICE A DAY ACTIVE TAKE 30 MINUTES BEFORE OR AT LEAST 2 HOURS AFTER FOOD. DO NOT TAKE WITH GRAPEFRUIT JUICE. 8) DULAGLUTIDE 1.5MG/0.5ML INJ PEN INJECT 1.5MG UNDER THE SKIN ACTIVE EVERY WEEK (ADMINISTER DOSE AT ANY TIME OF DAY, WITH OR WITHOUT MEALS) Indication: FOR DIABETES 9) EMPAGLIFLOZIN 25MG TAB TAKE ONE TABLET BY MOUTH ONCE A DAY ACTIVE PA CRITERIA MET 10) INSULIN,ASPART(EQV-NOVLG)100UN/ML FLXPEN INJECT 10 UNITS ACTIVE UNDER THE SKIN BEFORE BREAKFAST AND INJECT 8 UNITS BEFORE LUNCH AND INJECT 6 UNITS BEFORE SUPPER ADMINISTER 10 MINUTES BEFORE FOOD DIRECTED. REFRIGERATE UN-OPENED PENS. DISCARD CARTRIDGE 28 DAYS AFTER OPENING. Indication: FOR DIABETES 11) METFORMIN HCL 1000MG TAB TAKE ONE TABLET BY MOUTH TWICE A ACTIVE DAY WITH MEALS FOR BLOOD SUGAR CONTROL. TAKE WITH FOOD. AVOID ALCOHOL. DISCONTINUE BEFORE GETTING XRAY DYE. 12) METOPROLOL TARTRATE 50MG TAB TAKE ONE-HALF TABLET BY MOUTH ACTIVE TWICE A DAY FOR HEART/BLOOD PRESSURE. TAKE WITH OR IMMEDIATELY FOLLOWING FOOD. 13) NEEDLE,PEN 31G,5MM USE 1 NEEDLE UNDER THE SKIN FOUR TIMES A ACTIVE DAY FOR BOTH GLARGINE AND ASPART Indication: FOR INJECTION Active Non-VA Medications Status 1) Non-VA ASPIRIN 81MG EC TAB 81MG BY MOUTH ONCE A DAY ACTIVE 2) Non-VA CYANOCOBALAMIN 1000MCG TAB 1000MCG BY MOUTH ONCE A ACTIVE DAY Indication: FOR VITAMIN B12 SUPPLEMENTATION 3) Non-VA ERGOCALCIF 1,250MCG (D2-50,000UNIT) CAP [id number] BY ACTIVE MOUTH EVERY WEEK 16 Total Medications TO HELP YOU UNDERSTAND YOUR DRUG LIST ACTIVE ...means that you are presently taking these meds. PENDING ..means that the medication has just been renewed, or, just ordered. HOLD .....means that the medication is active on your list, but will not be processed until pharmacy receives further instructions from you or your doctor to proceed with filling the prescription for delivery. NON-VA ...means you are getting the medication from somewhere besides the [facility]. MEDICATIONS: A prescription which is too old to fill. This does not refer to the expiration date of the medication in the container The patients medication profile has been reviewed. Medications and/or dosage may vary upon arrival in the mail. Please read and follow the directions on your bottles carefully. MEDICATION PATIENT EDUCATION: It is very important for your safety that you keep an accurate medication list, which includes your vitamins, herbals, and medications purchased from an outside pharmacy. Make sure to bring this medication list with you at all times. It is your Responsibility to update your list when medications are changed, added or discontinued and provide this updated list to all providers. Medication Changes No changes are indicated as a result of this visit. A copy of the updated medication list was given to the patient and/or caregiver that included the medications added, changed, and/or discontinued today. Medication list pertinent to this visit reviewed with patient. No discrepancies were identified A return to clinic order was placed for . Future Appointments:11/24/2024 09:30 HARPAL-OPTOMETRY 1 Instruction (optional): /jimy/ DANIEL LILLY MD PHYSICIAN PRIMARY CARE Signed: 08/04/2024 12:01 LADAN LILLY MD [facility] August 04, 2024 11:40 AM NURSING OUTPATIENT NOTE: LOCAL TITLE: CLINIC NURSING INTERVIEW OR STANDARD TITLE: NURSING OUTPATIENT NOTE DATE OF NOTE: AUGUST 04, 2024@11:40 ENTRY DATE: AUGUST 04, 2024@11:41 AUTHOR: CHOLO VERNON COSIGNER: URGENCY: STATUS: COMPLETED PATIENT DEMOGRAPHICS: Sex: MALE Date of : May Patient race: WHITE Patient ethnicity: NOT OR B/P:122/62 (08/04/2024 11:40) P: 82 (08/04/2024 11:40) T: 98.1 F [36.7 C] (08/04/2024 11:40) R: 18 (08/04/2024 11:40) Pain: 0 (08/04/2024 11:40) PO: 92% (08/04/2024 11:40) WEIGHT: 169 lb [76.66 kg] (08/04/2024 11:40) Patient educated on pain scale. MEDICATIONALLERGIES/INTOLERANCES: SEMAGLUTIDE Reason for visit: Follow up of medical problems Other: routine visit Do you take Aspirin at home? Yes *Stress Assessment What are the areas of your life that have caused stress in the last 6 months? Not applicable - patient reports no stressors in the last 6 months Last Co-Manage Care note: CO-MANAGE CARE NOT COMPLETED WITHIN 6 MONTHS [CMCN] BELOW INFORMATION IS INSERTED INTO CO-MANAGED CARE-MA NOTE Patient has requested to continue getting medical care outside the [facility]. Outside Primary Care Provider Name/Ofc Info Dr. Sanchez Outside Specialty Provider 1 Name/Spec/Ofc Info Dr. Josh handy [END*] DME Has there been any change in the Veterans mobility status? No Does use DME or assistive device for mobility? No PERSONAL HEALTH PLAN [END*] PAVE Foot Check - L,N,P,PH,PO,PT,U: Patient indicates foot exam (including monofilament test for sensation) was performed in the past year in the private sector: Date: April, ? Exact date is unknown Result: Normal Homelessness/Food Insecurity Screen - DI,L,N,P,PH,PS,S,U: In the past 2 months, have you been living in stable housing that you own, rent, or stay in as part of a household? Yes - Living in stable housing. Are you worried or concerned that in the next 2 months you may NOT have stable housing that you own, rent, or stay in as part of a household? No - Not worried about housing near future The [place] reports the following: Within the past 12 months, you worried whether your food would run out before you got money to buy more. Never true Within the past 12 months, the food you bought just didn't last and you didn't have money to get more. Never true Depression Screening - V: Perform PHQ-2 A PHQ-2 screen was performed. The score was 0 which is a negative screen for depression. Over the past two weeks, how often have you been bothered by the following problems? 1. Little interest or pleasure in doing things Not at all 2. Feeling down, depressed, or hopeless Not at all Suicide Screen - V: C-SSRS Screening [place] Suicide Severity Rating Scale (C-SSRS) screener 1. Over the past month, have you wished you were or wished you could go to sleep and not wake up? No 2. Over the past month, have you had any actual thoughts of killing yourself? No 3. Over the past month, have you been thinking about how you might do this? Response not required due to responses to other questions. 4. Over the past month, have you had these thoughts and had some intention of acting on them? Response not required due to responses to other questions. 5. Over the past month, have you started to work out or worked out the details of how to kill yourself? Response not required due to responses to other questions. 6. If yes, at any time in the past month did you intend to carry out this plan? Response not required due to responses to other questions. 7. In your lifetime, have you ever done anything, started to do anything, or prepared to do anything to end your life (for example, collected pills, obtained a gun, gave away valuables, went to the roof but didn't jump)? No 8. If YES, was this within the past 3 months? Response not required due to responses to other questions. RHS Screen - VS: RHS Screen Session Format: Face to Face Environmental Check Upon inquiry, the individual reports that the environment is safe to proceed. Informed Consent to Screen and Document The individual consents to proceed with screening. The individual consents to documentation of responses. PRIMARY SCREEN: In the past 12 months, how often did a current or former intimate partner (e.g., boyfriend, girlfriend, , , sexual partner): 1. Scream or curse at you Never 2. Insult or talk down to you Never 3. Threaten you with harm Never 4. Physically hurt you Never 5. Force or pressure you to have sexual contact against your will, or when you were unable to say no Never The HITS tool (items 1-4 above) is [place] copyright protected by Odell Claudio MD, and the user has full rights to use it throughout the [place] system. PRIMARY SCREEN RESULT: The Primary Screen is NEGATIVE. The individual answered never to all forms of IPV above (i.e., answered never to all 5 items) The individual accepts education and/or resources: No EDUCATION: The individual indicated readiness to learn. Education offered during this session as noted above. The individual indicated understanding by asking relevant questions and making appropriate comments. No barriers to learning were observed or identified. Alcohol Use Screen (AUDIT-C) - V: Alcohol Screen: SCREEN FOR ALCOHOL (AUDIT-C) An alcohol screening test (AUDIT-C) was negative (score=0). 1. How often did you have a drink containing alcohol in the past year? Consider a drink to be a 12 ounce can or bottle of regular beer, 8 ounces of malt liquor, a 5 ounce glass of table wine, or a 1.5 ounce shot of liquor (like scotch, gin, or vodka). Never 2. How many drinks containing alcohol did you have on a typical day when you were drinking in the past year? Response not required due to responses to other questions. 3. How often did you have six or more drinks on one occasion in the past year? Response not required due to responses to other questions. PTSD Screening - V: PC-PTSD-5 A PTSD screening test (PC-PTSD-5) was negative (score=0). IN THE PAST MONTH, have you ever had any experience that was so frightening, horrible or traumatic. For example: A serious accident or fire a physical or sexual assault or abuse An earthquake or flood A war Seeing someone be killed or seriously injured Having a loved one through homicide or suicide 1. Have you ever experienced this kind of event? NO 2. Had nightmares about the event(s) or thought about the event(s) when you did not want to? Response not required due to responses to other questions. 3. Tried hard not to think about the event(s) or went out of your way to avoid situations that reminded you of the event(s)? Response not required due to responses to other questions. 4. Been constantly on guard, watchful, or easily startled? Response not required due to responses to other questions. 5. [place] numb or detached from people, activities, or your surroundings? Response not required due to responses to other questions. 6. [place] guilty or unable to stop blaming yourself or others for the event(s) or any problems the event(s) may have caused? Response not required due to responses to other questions. Tobacco Use Screening - AT,DE,L,M,N,P,PH,PS,RT,S,U: The patient is a former cigarette smoker. The patient has never used other types of tobacco. [place] Fall Risk Opt Assessment : Nursing Fall Risk Outpatient Assessment Patient reports no falls within the past 12 months. Patient does not feel unsteady when walking or standing. Patient does not worry about falling. /jimy/ Cholo Vernon LPN Primary Care, [facility] Signed: 08/04/2024 11:45 CHOLO VERNON [facility] August 04, 2024 11:40 AM PRIMARY CARE OUTPATIENT NOTE: LOCAL TITLE: [facility] NOTE MA STANDARD TITLE: PRIMARY CARE OUTPATIENT NOTE DATE OF NOTE: AUGUST 04, 2024@11:40 ENTRY DATE: AUGUST 04, 2024@11:41:01 AUTHOR: KI-JONH,LALAINE EXP COSIGNER: URGENCY: STATUS: COMPLETED [facility] NOTE MA Has ADDENDA 's identity was confirmed with two (2) forms of identification: Full Name, Full Social Security Number, or Date of . CHIEF COMPLAINT: follow-up of medical problems HISTORY PRESENT ILLNESS: Patient is a 74 year old vet who's here in clinic today for follow-up. He is accompanied by his daughter. They are trying to set him up in [facility] but cannot be accomodated at this time. He's been a resident of [facility] in [facility] living [facility]. Meds are sent to daughter's house and taken to the facility. He had influenza A last may and was septic at that time. He's been on continuous O2 since hopsital discharge. Trying to request Pulmonary appt through community care. Currently under the care of decision unit rn Dr. Mcguire for his diabetes mellitus. History of recurrent strokes, CAD, CHF, Diabetes mellitus, atrial fib, lung nodules, COPD, h/o TAVR last August 2020 for severe aortic stenosis. Has history of prostate cancer and sees Dr. Gonzalez. Denies any falls or recent ER visits. NON VA-CARE PCP: DR. ANT MATTSON, in [place] Pharmacovigilance Scientist: Dr.Matthew Sims same group Ad Operations Specialist: Dr Porter in [facility] URologist: Dr. Gonzalez in [place] Body Technician: Dr.Fraid Mcguire ALLERGIES: SEMAGLUTIDE OUTPATIENT MEDICATIONS: Been reviewed with patient on today's visit, including dose, route, indication, and frequency. Active Outpatient Medications (including Supplies): Active Outpatient Medications Status 1) ALBUTEROL 90MCG (CFC-F) 200D ORAL INHL INHALE 2 PUFFS BY ACTIVE ORAL INHALATION FOUR TIMES A DAY NEEDED SHAKE WELL. RINSE MOUTHPIECE FREQUENTLY TO PREVENT CLOGGING. Indication: FOR COPD 2) APIXABAN 5MG TAB TAKE ONE TABLET BY MOUTH TWICE A DAY FOR ACTIVE ANTICOAGULATION 3) ATORVASTATIN CALCIUM 40MG TAB TAKE ONE TABLET BY MOUTH EVERY ACTIVE EVENING TO LOWER CHOLESTEROL 4) BREZTRI 160/9/4.8MCG/ACT 120D ORAL INHL INHALE 2 PUFFS ACTIVE INHALATION TWICE A DAY DIRECTED (CLEAN INHALER FOLLOWED BY 2 PRIMING PUFFS ONCE WEEKLY) Indication: FOR COPD 5) BRIEF,PROTECTIVE SUPER ABS LG ATTENDS USE 1 BRIEF TO ACTIVE AFFECTED AREA(S) ONCE A DAY NEEDED FOR INCONTINENCE 6) CETIRIZINE HCL 10MG TAB TAKE ONE TABLET BY MOUTH ONCE A DAY ACTIVE FOR ALLERGY SYMPTOMS. 7) CILOSTAZOL 50MG TAB TAKE ONE TABLET BY MOUTH TWICE A DAY ACTIVE TAKE 30 MINUTES BEFORE OR AT LEAST 2 HOURS AFTER FOOD. DO NOT TAKE WITH GRAPEFRUIT JUICE. 8) DULAGLUTIDE 1.5MG/0.5ML INJ PEN INJECT 1.5MG UNDER THE SKIN ACTIVE EVERY WEEK (ADMINISTER DOSE AT ANY TIME OF DAY, WITH OR WITHOUT MEALS) Indication: FOR DIABETES 9) EMPAGLIFLOZIN 25MG TAB TAKE ONE TABLET BY MOUTH ONCE A DAY ACTIVE PA CRITERIA MET 10) INSULIN,ASPART(EQV-NOVLG)100UN/ML FLXPEN INJECT 10 UNITS ACTIVE UNDER THE SKIN BEFORE BREAKFAST AND INJECT 8 UNITS BEFORE LUNCH AND INJECT 6 UNITS BEFORE SUPPER ADMINISTER 10 MINUTES BEFORE FOOD DIRECTED. REFRIGERATE UN-OPENED PENS. DISCARD CARTRIDGE 28 DAYS AFTER OPENING. Indication: FOR DIABETES 11) METFORMIN HCL 1000MG TAB TAKE ONE TABLET BY MOUTH TWICE A ACTIVE DAY WITH MEALS FOR BLOOD SUGAR CONTROL. TAKE WITH FOOD. AVOID ALCOHOL. DISCONTINUE BEFORE GETTING XRAY DYE. 12) METOPROLOL TARTRATE 50MG TAB TAKE ONE-HALF TABLET BY MOUTH ACTIVE TWICE A DAY FOR HEART/BLOOD PRESSURE. TAKE WITH OR IMMEDIATELY FOLLOWING FOOD. 13) NEEDLE,PEN 31G,5MM USE 1 NEEDLE UNDER THE SKIN FOUR TIMES A ACTIVE DAY FOR BOTH GLARGINE AND ASPART Indication: FOR INJECTION Active Non-VA Medications Status 1) Non-VA ASPIRIN 81MG EC TAB 81MG BY MOUTH ONCE A DAY ACTIVE 2) Non-VA CYANOCOBALAMIN 1000MCG TAB 1000MCG BY MOUTH ONCE A ACTIVE DAY Indication: FOR VITAMIN B12 SUPPLEMENTATION 3) Non-VA ERGOCALCIF 1,250MCG (D2-50,000UNIT) CAP [id number] BY ACTIVE MOUTH EVERY WEEK 16 Total Medications REVIEW OF SYSTEM: GENERAL: No fevers, sweats, shakes, chills, on continuous O2 HEENT: No diplopia, blurry vision, epistaxis or tinnitus, hearing loss CARDIOVASCULAR: No chest pain, dyspnea, edema, palpitations PULMONARY: No wheezing, cough, or night sweats GASTROINTESTINAL: No nausea, vomiting, diarrhea, abdominal pain, bleeding GENITOURINARY: No dysuria, hematuria, frequency, incontinence MUSCULOSKELETAL: No claudication, pain, paresthesia, back pain ENDOCRINOLOGIC: No excessive thirst, urination, heat or cold intolerance NEUROLOGIC: No seizures, dizziness, syncope, loss consciousness SKIN: No lesions, rash, lumps, pruritus PSYCH: No sleep difficulty, mood changes, anxiety, suicidal ideas OBJECTIVE PHYSICAL EXAM: (x ) Patient agrees to have a physical exam while at clinic today. ( ) Use of a Residential Sales Rep has been necessary during some parts of this exam. VITAL SIGNS: BP: 122/62 P: 82 R: 18 WT: 169 T: 98.1 HT: 92% (08/04/2024 11:40) BMI:30.0 GEN: elderly , in no acute distress, ambulatory, on continuous O2 EYES: Bilaterally reacting pupils, EOM intact, no davidson-orbital edema, clear sclera and conjuctiva ENT: Ear Canals clean and free of wax oropharynx is normal, no postnasal dischage, oral mucosa moist without lesions NECK: Supple, No JVD, no cervical adenopathy, no thyromegal LUNGS: decreased breath sounds, no wheezing, crackles or rhonchi CARDIAC EXAM: irregular rhythm, no rub, gallop, + systolic murmur over aortic area, + sternal scar from previous CABG ABDOMEN: Soft, protruberant non tender, no rebound or guarding, no palpable mass, nor fluid wave, bowel sounds are present EXTREMITIES: No pedal edema, clubbing or cyanosis, Normal ROM LABS: (x ) TO BE DONE TODAY, PATIENT WILL BE CONTACTED FOR ABNORMAL RESULTS. ( ) OUTSIDE LABS RESULTS BROUGHT BY PATIENT TO CLINIC ( ) NOTED AND SIGNIFICANT RESULTS DISCUSSED WITH PATIENT COPY GIVEN TO PATIENT ASSESSMENT AND PLAN: CHRONIC ATRIAL FIBRILLATION on Apixaban for stroke prevention and Metoprolol for rate control denies any missed doses check labs today DIABETES MELLITUS, check a1-c today Now on Novolog 12 units am, 10 units noon and 12 units PM, Metformin 1000 mg BID; Lantus 10 units q daily, Jardiance 25 mg daily and Dulaglutide 1.5 mg q weekly using LUX[employer]Xce[employer] Avi for continuous glucose monitoring follows up with private decision unit rn, Dr. Rojas Mcguire CAD; H/O CABG x 4 in 2012;H/O CHF, well compensated H/O AVB; S/P PACEMAKER PLACEMENT on ASA, Lisinopril 40 mg daily and Metoprolol 25 mg BID DASH dietencourage H/O SEVERE SYMPTOMATIC AORTIC STENOSIS S/P TAVR 08/18/20 being followed up by [facility] Dr. Trevor Rajput on Lisinopril and Metoprolol denies any chest pain PVD, continue Cilostazol and walking exercises statin on board MIXED HYPERLIPIDEMIA, check lipid profile continue Atorvastatin and low chol diet H/O COLON POLYPS; had one done 2018 at [facility] declined repeat colonoscopy CHRONIC ALLERGIES, on Zyrtec and Flonase nasal spray VITAMIN D DEF, on Ergocalciferol check Vitamn D level today LEENA, uses his CPAP on a regular basis BPH WITHOUT LUTS PROSTATE CANCER follows up with private urologist, Dr. Gar requesting referral through [facility] stable on Finasteride COPD now on continous o2 had influenza A last may and was septic H/O PULMONARY NODULE Being followed up by private chemist organic in [place] tolerating Breztri and Albuterol MDI CT SCAN OF CHEST 08/08/21 IMP: Left lower lobe peripheral 5 mm pulmonary nodule Mild mediastinallymphadenopathy Postprocedural changes in the mediastinum completed pulmonary Rehab requesting to be set up with pulmonary preferably in [facility] DEC[facility] MAKING OCCURRED DURING THIS VISIT WITH THE [facility]. Questions answered and is agreeable with treatment plan. PLAN OF CARE HAS BEEN DISCUSSED WITH PATIENT, INCLUDING EXPECTED THERAPEUTIC BENEFITS AND POTENTIAL SIDE EFFECTS OF MEDICATIONS. PATIENT VERBALIZED UNDERSTANDING AND IS IN AGREEMENT WITH PLAN OF CARE MEDICATION RECONCILIATION DOCUMENTED AND UPDATED. RTC: FEB 2025 with labs on same day Patient advised to call the clinic with any concerns, questions or symptoms or make early appointment for new or persistent or worsening of sx. /jimy/ DANIEL LILLY MD PHYSICIAN PRIMARY CARE Signed: 08/04/2024 12:47 08/05/2024 ADDENDUM STATUS: COMPLETED * * * * LABS EVALUATION NOTE * * * * DATE: AUGUST 05, 2024 LABS PERFORMED ON: August 04 WERE REVIEWED. BLOOD August 04 Dec 31 Reference 2024 2023 11:59 11:10 Units Ranges - HBA1C 8.1 H 7.9 H % 4 - 6 Uncontrolled DM Now on Novolog 12 units am, 10 units noon and 12 units PM, Metformin 1000 mg BID; Lantus 10 units q daily, Jardiance 25 mg daily and Dulaglutide 1.5 mg q weekly; pls verify if still seeing private decision unit rn, Dr. Rojas Mcguire insulin needs to be adjusted otherwise, will consult clinical pharmacist CMP, lipids normal UA >1000 glucose, on Jardiance microal: 105, re-ordered Lisinopril CBC with stable Hgb/Hct; has anemia of chronic disease PLEASE INFORM PATIENT ABOUT ABOVE RESULTS AND SEND COPY OF RESULTS TO PATIENT. /stacey LILLY MD PHYSICIAN PRIMARY CARE Signed: 08/05/2024 04:55 Receipt Acknowledged By: * AWAITING SIGNATURE * BRYCE SHERIDAN 08/05/2024 ADDENDUM STATUS: COMPLETED Attempted to contact [place] at telephone number listed in CPRS r/t notification of lab results. Message left to return call to clinic /jimy/ BRYCE BERNAL, GOMEZ Signed: 08/05/2024 08:33 08/05/2024 ADDENDUM STATUS: COMPLETED Attempted to contact at telephone number listed in CPRS r/t notification of lab results. Message left to return call to clinic. /jimy/ BRYCE BERNAL, RN Signed: 08/05/2024 15:36 LADAN LILLY MD [facility]
--- OUTSIDE RECORDS SUMMARY | 2024-10-12 07:01 | XMS_ITS | Encounter Summary ---
Author Name [facility] [facility] [place] Address [address] [place] [address] Care Team Providers Care Carpenter Form Name Role Phone DANIEL LILLY Primary Care [...] Name Patient's Relationship to Policy Dickens [employer]ET[employer] [facility] (WNR) MEDICARE ADVANTAGE [facility] (R) Mar 18, 2023 [id number] CHAY HUERTA PATIENT [employer] [facility] (WNR) MEDICARE ADVANTAGE [facility] (WN) Sep 16, 2019 [id number] CHAY HUERTA PATIENT Selected Encounter This section includes the information on record at [place] for the Encounter. Date/Time Encounter Type Encounter Description Reason Pro vider Source Oct 12, 2024 12:01 PM Outpatient Encounter ADMIN PAT ACTIVTIES (MASNONCT) I[facility] Encounter Template Text not used by [place] Plan of Treatment: Future Appointments (+ 6 months) and Future Tests (+/- 45 days) The Plan of Treatment section includes future care activities for the patient from all [place] [facility]. This section includes future appointments and future orders which are active, pending or scheduled. Future Appointments This section includes appointments that were scheduled to occur 6 months from the date of the Encounter, up to a maximum of 20 appointments. The data comes from all [place] treatment facilities. Appointment Date/Time Appointment Type Appointme nt Facility Name Nov 24, 2024 09:30 AM AMBULATORY - SURGERY [facility] Feb 08, 2025 11:30 AM AMBULATORY - NONE [facility] Feb 08, 2025 11:45 AM AMBULATORY - MEDICINE [facility] Social History: Smoking Status (Most current) and Tobacco Use (All prior to encounter date) This section includes the most current, and the historical, smoking and tobacco- related health factors from the [place] facility where the Encounter took place. Current Smoking Status This section includes the most current smoking, or tobacco-related health factor, from the [place] facility where the Encounter took place. Date/Time Current Smoking Status Comment Facil ity Oct 19, 2019 12:21 PM VA-TOBACCO USE INSURANCE [facility] Tobacco Use History This section includes a history of the smoking, or tobacco-related health factors, that were collected on or before the date of the Encounter. The data comes from the [place] facility where the Encounter took place. Date/Time Smoking Status/Tobacco Use Comment F acility Oct 19, 2019 12:21 PM VA-TOBACCO USE 5 TO 15 YEARS [facility] Oct 19, 2019 12:21 PM VA-TOBACCO USE ADVICE [facility] Oct 19, 2019 12:21 PM VA-TOBACCO USE INSURANCE [facility] Oct 19, 2019 12:21 PM VA-TOBACCO USE MED NO [facility] Oct 19, 2019 12:21 PM VA-TOBACCO USER EVERY DAY [facility] Advance Directives: All historical and current Section Date Range: From patient's date of to the date document was created. This section includes ALL of a patient's completed or amended [place] Advance and Rescinded Directives. The entries below indicate that a directive exists for the patient, but an actual copy is not included with this document. The data comes from all [place] facilities. Date Advance Directives Provider Source Mar 09, 2024 ADVANCE DIRECTIVE CANDACE LAM [facility]UL ON [facility] Encounter Notes: All associated encounter notes This section contains the clinical notes associated to the Encounter. Date/Time Encounter Note(s) Provider Source Oct 12, 2024 12:01 PM REFERRAL NOTE: LOCAL TITLE: REFERRAL COORDINATION TEAM CLINICAL NOTE [facility] STANDARD TITLE: REFERRAL NOTE DATE OF NOTE: OCT 12, 2024@12:01 ENTRY DATE: OCT 12, 2024@12:01:37 AUTHOR: KARY HICKS EXP COSIGNER: URGENCY: STATUS: COMPLETED REFERRAL COORDINATION TEAM CLINICAL NOTE [facility] Attached to this note are scanned copies of outside medical record(s). Providers, please BE ADVISED--There may be UNCONFIRMED Notes or Reports provided solely for continuity of care for internal consult purposes only. Duplicate documents may be in EHR for this , needed for internal consult purposes only. Patient Name CHAY HUERTA Last 9, [id number] Specialty: Urology DOS: 11/13/2023-04/21/2024 From: [facility] To view the scanned document: 1) You must be logged into [facility] 2) Click on Toolbar 3) Sign on to [facility] This note is to include: -11/13/2023 Urology Note [facility] -02/26/2024 [facility] -04/21/2024 Urology Note ELIJAH /jimy/ KARY HICKS SENIOR ASIC DESIGN ENGINEER REGISTERED NURSE Signed: 10/12/2024 12:03 KARY HICKS [facility]
--- OUTSIDE RECORDS SUMMARY | 2024-11-12 06:18 | XMS_ITS | Continuity of Care Document ---
Author Name [facility] Care Team Providers Care Shingle Cutter Name Role Phone [facility] Unavailable Unavailable Problems Combined list of problems from Department of Defense and [facility] Affairs facilities. It does not include entries that were removed or entered in error. Problem Status Onset Date Problem Type Date of Resolution Comments Source Allergic rhinitis Active Condition [facility] Anemia ([facility] [id number]) Active Condition [facility] Aortic valve stenosis Active Condition [facility] Benign Prostatic Hypertrophy Without Outflow Obstruction ([facility] [id number]) Active Condition [facility] CAD - Coronary Artery Disease ([facility] [id number]) Active Condition Oct 28, 2019 Entered By: RASHARD QUINTANILLA Comment: quad CABG 2012 ; pacemaker [facility] Cerebral infarction Active Condition [facility] CHF - Congestive Heart Failure (SCT 43606860) Active Condition [facility] COPD - Chronic Obstructive Pulmonary Disease (SCT 25848632) Active Condition [facility] Dependence on supplemental oxygen Active Condition [facility] Diabetes Mellitus Type 2 ([facility] [id number]) Active Condition [facility] H/O: cardiac pacemaker in situ Active Condition [facility] Obesity (SCT 361773634) Active Condition [facility] Peripheral Vascular Disease (SCT 685752847) Active Condition [facility] Sleep Apnea (SCT 75951674) Active Condition Oct 28, 2019 Entered By: RASHARD QUINTANILLA Comment: cpap [facility] Solitary Nodule of Lung (SCT 728466741) Active Condition Oct 28, 2019 Entered By: RASHARD QUINTANILLA Comment: folowed yearly by Dr Fuentes ( pulmo) [facility] Vitamin B12 Deficiency (SCT 529439260) Active Condition [facility] Diagnosis: ICD-10-CM R79.89 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ed abnormal findings of blood chemistry Active Diagnosis [facility] Diagnosis: ICD-10-CM I50.9 Heart failure, unspecified Active Diagnosis [facility] Diagnosis: ICD-10-CM Z74.1 Need for assistance with personal care Active Diagnosis [facility] Diagnosis: ICD-10-CM E11.9 Type 2 diabetes mellitus without complications Active Diagnosis [facility] Diagnosis: ICD-10-CM I25.10 Athscl heart disease of [place] coronary artery w/o ang pctrs Active Diagnosis [facility] Diagnosis: ICD-10-CM E11.3292 Type 2 diab with mild nonp 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 Medication Details Route Status Patient Instructions Prescription Expires Prescription Number Last Dispense Date Ordering Provider Order Date Order Qty Source ALBUTEROL SO4 90MCG/ACTUA T (CFC-F) INHL,ORAL,8 .5GM INHALE 2 PUFFS BY ORAL INHALATI ON FOUR TIMES A DAY NEEDED FOR COPD SHAKE WELL. RINSE MOUTHPIE CE FREQUENT LY TO PREVENT CLOGGING . RESPIR ATORY (INHAL ATION) ACTIVE 03/28/2025 [id number] 5 IDALIA SEWELL OM, MD 2024 [facility] [place] [facility] ALBUTEROL SO4 90MCG/ACTUA T (CFC-F) INHL,ORAL,8 .5GM INHALE 2 PUFFS BY ORAL INHALATI ON FOUR TIMES A DAY NEEDED FOR COPD SHAKE WELL. RINSE MOUTHPIE CE FREQUENT LY TO PREVENT CLOGGING . RESPIR ATORY (INHAL ATION) DISCONT INUED 06/10/2024 [id number] 4 IDALIA SEWELL OM, MD 2023 3 [place] [facility] APIXABAN 5MG TAB TAKE ONE TABLET BY MOUTH TWICE A DAY FOR ANTICOAG ULATION ORAL SUSPEND ED 10/14/2025 [id number] 5 LESLEE BELTRAN 2024 180 [place] [facility] APIXABAN 5MG TAB TAKE ONE TABLET BY MOUTH TWICE A DAY FOR ANTICOAG ULATION ORAL DISCONT INUED 05/12/2025 [id number] 5 LESLEE BELTRAN 2024 60 [place] [facility] APIXABAN 5MG TAB TAKE ONE TABLET BY MOUTH TWICE A DAY FOR ANTICOAG ULATION ORAL DISCONT INUED 10/17/2024 [id number] 5 IDALIA SEWELL OM, MD 2023 60 [place] [facility] APIXABAN 5MG TAB TAKE ONE TABLET BY MOUTH TWICE A DAY FOR ANTICOAG ULATION ORAL DISCONT INUED 05/13/2024 [id number] 4 IDALIA SEWELL OM, MD 2023 60 [place] [facility] ASPIRIN 81MG TAB,EC TAKE ONE TABLET BY MOUTH ONCE A DAY ORAL ACTIVE Rizwan QUINTANILLA 2019 [facility] ATORVASTATI N CA 40MG TAB TAKE ONE TABLET BY MOUTH EVERY EVENING TO LOWER CHOLESTE ROL ORAL ACTIVE 12/20/2024 [id number] 4 IDALIA SEWELL OM, MD 2023 90 [place] [facility] ATORVASTATI N CA 40MG TAB TAKE ONE TABLET BY MOUTH EVERY EVENING TO LOWER CHOLESTE ROL ORAL DISCONT INUED 10/16/2023 [id number] 4 IDALIA SEWELL OM, MD 2022 90 [place] [facility] BUDESONIDE 160/GLYCOPY R 9/FORMOTER 4.8MCG/ACT INHL,ORAL,1 0.7GM INHALE 2 PUFFS INHALATI ON TWICE A DAY DIRECTED (CLEAN INHALER FOLLOWED BY 2 PRIMING PUFFS ONCE WEEKLY) INHALA TION ACTIVE 03/28/2025 [id number] 5 IDALIA SEWELL OM, MD 2024 3 [place] [facility] BUDESONIDE 160/GLYCOPY R 9/FORMOTER 4.8MCG/ACT INHL,ORAL,1 0.7GM INHALE 2 PUFFS INHALATI ON TWICE A DAY DIRECTED (CLEAN INHALER FOLLOWED BY 2 PRIMING PUFFS ONCE WEEKLY) INHALA TION DISCONT INUED 06/10/2024 [id number] 4 IDALIA SEWELL OM, MD 2023 3 [place] [facility] CETIRIZINE HCL 10MG TAB TAKE ONE TABLET BY MOUTH ONCE A DAY FOR ALLERGY SYMPTOMS . ORAL 09/16/2024 [id number] 4 IDALIA SEWELL OM, MD 2023 90 [place] [facility] CILOSTAZOL 50MG TAB TAKE ONE TABLET BY MOUTH TWICE A DAY TAKE 30 MINUTES BEFORE OR AT LEAST 2 HOURS AFTER FOOD. DO NOT TAKE WITH GRAPEFRU IT JUICE. ORAL ACTIVE 12/20/2024 [id number] 4 IDALIA SEWELL OM, MD 2023 180 [place] [facility] CILOSTAZOL 50MG TAB TAKE ONE TABLET BY MOUTH TWICE A DAY TAKE 30 MINUTES BEFORE OR AT LEAST 2 HOURS AFTER FOOD. DO NOT TAKE WITH GRAPEFRU IT JUICE. ORAL DISCONT INUED 05/13/2024 [id number] 4 IDALIA SEWELL OM, MD 2023 180 [place] [facility] CYANOCOBALA MIN 1000MCG TAB TAKE ONE TABLET BY MOUTH ONCE A DAY ORAL ACTIVE IDALIA SEWELL OM, MD 2023 [place] [facility] DULAGLUTIDE 0.75MG/0.5M L INJ,SOLN,PE N INJECT 0.75MG UNDER THE SKIN EVERY WEEK FOR DIABETES (ADMINIS TER DOSE AT ANY TIME OF DAY, WITH OR WITHOUT MEALS) SUBCUT ANEOUS DISCONT INUED (EDIT) 03/25/2025 [id number] 5 LESLEE BELTRAN 2024 12 [place] [facility] DULAGLUTIDE 0.75MG/0.5M L INJ,SOLN,PE N INJECT 0.75MG UNDER THE SKIN EVERY WEEK FOR DIABETES (ADMINIS TER DOSE AT ANY TIME OF DAY, WITH OR WITHOUT MEALS) SUBCUT ANEOUS DISCONT INUED 01/23/2025 [id number] 4 DEVINDA VID W 2023 4 [place] [facility] DULAGLUTIDE 0.75MG/0.5M L INJ,SOLN,PE N INJECT 0.75MG UNDER THE SKIN EVERY WEEK FOR DIABETES (ADMINIS TER DOSE AT ANY TIME OF DAY, WITH OR WITHOUT MEALS) SUBCUT ANEOUS DISCONT INUED 02/05/2024 [id number] DEVINDA VID W 2023 4 [place] [facility] DULAGLUTIDE 1.5MG/0.5ML INJ,SOLN,PE N INJECT 1.5MG UNDER THE SKIN EVERY WEEK FOR DIABETES (ADMINIS TER DOSE AT ANY TIME OF DAY, WITH OR WITHOUT MEALS) SUBCUT ANEOUS ACTIVE 05/12/2025 [id number] DEVINLESLEE VID W 2024 12 [place] [facility] EMPAGLIFLOZ IN 25MG TAB TAKE ONE TABLET BY MOUTH ONCE A DAY PA CRITERIA MET ORAL SUSPEND ED 10/14/2025 [id number] 5 LESLEE BELTRAN VID W 2024 90 [place] [facility] EMPAGLIFLOZ IN 25MG TAB TAKE ONE TABLET BY MOUTH ONCE A DAY PA CRITERIA MET ORAL DISCONT INUED 03/25/2025 [id number] 5 LESLEE BELTRAN VID W 2024 90 [place] [facility] EMPAGLIFLOZ IN 25MG TAB TAKE ONE TABLET BY MOUTH ONCE A DAY PA CRITERIA MET ORAL DISCONT INUED 06/19/2024 [id number] 4 IDALIA SEWELL OM, MD 2023 90 [place] [facility] ERGOCALCIFE ROL 1,250MCG (50,000UNIT ) CAP TAKE 1 CAPSULE BY MOUTH EVERY WEEK ORAL ACTIVE Rizwan QUINTANILLA 2019 [facility] FINASTERIDE 5MG TAB TAKE ONE TABLET BY MOUTH ONCE A DAY FOR PROSTATE . SWALLOW WHOLE, DO NOT CRUSH, SPLIT, OR CHEW. ORAL ACTIVE 08/06/2025 [id number] 5 IDALIA SEWELL OM, MD 2024 90 [place] [facility] FINASTERIDE 5MG TAB TAKE ONE TABLET BY MOUTH ONCE A DAY FOR PROSTATE . SWALLOW WHOLE, DO NOT CRUSH, SPLIT, OR CHEW. ORAL DISCONT INUED 07/09/2024 [id number] 5 IDALIA SEWELL OM, MD 2023 90 [place] [facility] INSULIN,ASP ART,HUMAN (EQV-NOVOLO G) 100 UNIT/ML,FLE XPEN,3ML INJECT 10 UNITS UNDER THE SKIN BEFORE BREAKFAS T AND INJECT 8 UNITS BEFORE LUNCH AND INJECT 6 UNITS BEFORE SUPPER FOR DIABETES ADMINIST ER 10 MINUTES BEFORE FOOD DIRECTED . REFRIGER ATE UN-OPENE D PENS. DISCARD CARTRIDG E 28 DAYS AFTER OPENING. SUBCUT ANEOUS SUSPEND ED 10/14/2025 [id number] 5 LESLEE BELTRAN W 2024 10 [place] [facility] INSULIN,ASP ART,HUMAN (EQV-NOVOLO G) 100 UNIT/ML,FLE XPEN,3ML INJECT 10 UNITS UNDER THE SKIN BEFORE BREAKFAS T AND INJECT 8 UNITS BEFORE LUNCH AND INJECT 6 UNITS BEFORE SUPPER FOR DIABETES ADMINIST ER 10 MINUTES BEFORE FOOD DIRECTED . REFRIGER ATE UN-OPENE D PENS. DISCARD CARTRIDG E 28 DAYS AFTER OPENING. SUBCUT ANEOUS DISCONT INUED 05/12/2025 [id number] LESLEE BELTRAN W 2024 10 [place] [facility] INSULIN,ASP ART,HUMAN (EQV-NOVOLO G) 100 UNIT/ML,FLE XPEN,3ML INJECT 12 UNITS UNDER THE SKIN EVERY MORNING AND INJECT 10 UNITS NOON AND INJECT 8 UNITS EVERY EVENING FOR BLOOD SUGAR CONTROL. *PLUS SLIDING SCALE - ADD 1 UNIT FOR EVERY 50 OVER BLOOD SUGAR OF 150, MAX OF 42 UNITS A DAY* ADMINIST ER 10 MINUTESB EFORE FOOD DIRECTED . REFRIGER ATE UN-OPENE D PENS. DISCARD CARTRIDG E 28DAYS AFTER OPENING. SUBCUT ANEOUS DISCONT INUED BY PROVIDE R 03/25/2025 [id number] 5 LESLEE BELTRAN W 2024 15 [place] [facility] INSULIN,ASP ART,HUMAN (EQV-NOVOLO G) 100 UNIT/ML,FLE XPEN,3ML INJECT 12 UNITS UNDER THE SKIN EVERY MORNING AND INJECT 10 UNITS NOON AND INJECT 8 UNITS EVERY EVENING FOR BLOOD SUGAR CONTROL. *PLUS SLIDING SCALE - ADD 1 UNIT FOR EVERY 50 OVER BLOOD SUGAR OF 150, MAX OF 42 UNITS A DAY* ADMINIST ER 10 MINUTESB EFORE FOOD DIRECTED . REFRIGER ATE UN-OPENE D PENS. DISCARD CARTRIDG E 28DAYS AFTER OPENING. SUBCUT ANEOUS DISCONT INUED 07/29/2024 [id number] 4 IDALIA SEWELL OM, MD 2023 5 [place] [facility] INSULIN,GLA RGINE,HUMAN 100 UNIT/ML INJ,SOLOSTA R,3ML INJECT 10 UNITS OF 100UNIT/ ML UNDER THE SKIN ONCE A DAY ADMINIST ER AT SAME TIME EACH DAY DIRECTED . DISCARD ANY OPEN CARTRIDG E AFTER 28 DAYS. SUBCUT ANEOUS DISCONT INUED BY ZAKIA Salamanca 03/25/2025 [id number] LESLEE BELTRAN 2024 5 [place] [facility] INSULIN,GLA RGINE-YFGN 100UNIT/ML INJ PEN,3ML INJECT 10 UNITS UNDER THE SKIN ONCE A DAY FOR DIABETES ADMINIST ER AT SAME TIME EACH DAY DIRECTED . DISCARD ANY OPEN CARTRIDG E AFTER 28 DAYS. SUBCUT ANEOUS DISCONT INUED (EDIT) 06/19/2024 [id number] 4 IDALIA SEWELL OM, MD 2023 5 [place] [facility] LISINOPRIL 40MG TAB TAKE ONE-HALF TABLET BY MOUTH ONCE A DAY FOR HEART OR BLOOD PRESSURE ORAL ACTIVE 08/06/2025 [id number] 5 IDALIA SEWELL OM, MD 2024 45 [place] [facility] LISINOPRIL 40MG TAB TAKE ONE-HALF TABLET BY MOUTH ONCE A DAY FOR HEART OR BLOOD PRESSURE ORAL DISCONT INUED 06/19/2024 [id number] 4 IDALIA SEWELL OM, MD 2023 45 [place] [facility] METFORMIN HCL 1000MG TAB TAKE ONE TABLET BY MOUTH TWICE A DAY WITH MEALS FOR BLOOD SUGAR CONTROL. TAKE WITH FOOD. AVOID ALCOHOL. DISCONTI NUE BEFORE GETTING XRAY DYE. ORAL ACTIVE 12/20/2024 [id number] 4 IDALIA SEWELL OM, MD 2023 180 [place] [facility] METFORMIN HCL 1000MG TAB TAKE ONE TABLET BY MOUTH TWICE A DAY WITH MEALS FOR BLOOD SUGAR CONTROL. TAKE WITH FOOD. AVOID ALCOHOL. DISCONTI NUE BEFORE GETTING XRAY DYE. ORAL DISCONT INUED 05/13/2024 [id number] 4 IDALIA SEWELL OM, MD 2023 180 [place] [facility] METOPROLOL TARTRATE 50MG TAB TAKE ONE-HALF TABLET BY MOUTH TWICE A DAY FOR HEART/BL OOD PRESSURE . TAKE WITH OR IMMEDIAT IZABELA FOLLOWIN G FOOD. ORAL ACTIVE 12/20/2024 [id number] 4 IDALIA SEWELL OM, MD 2023 90 [place] [facility] METOPROLOL TARTRATE 50MG TAB TAKE ONE-HALF TABLET BY MOUTH TWICE A DAY FOR HEART/BL OOD PRESSURE . TAKE WITH OR IMMEDIAT IZABELA FOLLOWIN G FOOD. ORAL DISCONT INUED 05/13/2024 [id number] 4 IDALIA SEWELL OM, MD 2023 90 [place] [facility] Allergies, Adverse Reactions, Alerts Combined list of allergies from Department of Defense and Veterans Affairs facilities. It does not include entries that were removed or entered in error. Substance Category Reaction Severity Reaction type Status Date Reported Comments Source SEMAGLUTIDE Propensity to adverse reactions to drug (finding) Nausea and vomiting active 4 [facility] Immunizations Combined list of available immunizations from the Department of Defense and Veterans Affairs facilities. Immunization Series Date Given Administered By Site Reaction Lot Number CVX Code Drug Dye Colorist Dyer Status Comments Source TDAP 1 2023 115 complet ed HISTORICA L INFORMATI ON - FROM OTHER REGISTRY, [facility] INFLUENZA, ADJUVANTED, TRIVALENT, PF 1 2023 168 complet ed HISTORICA L INFORMATI ON - FROM OTHER REGISTRY, [facility] INFLUENZA, UNSPECIFIED FORMULATION 2022 88 complet ed HISTORICA L INFORMATI ON - FROM PATIENT'S RECALL, [facility] INFLUENZA VACCINE, QUADRIVALENT, ADJUVANTED 2021 205 complet ed [facility] P[facility]ATE PCV20, POLYSACCHARID E [id number] CONJUGATE, ADJUVANT, PF 2021 216 complet [facility] 2021 115 complet ed [facility] COVID-19 (PFIZER), MRNA, LNP-S, PF, 30 MCG/0.3 ML DOSE 2 2021 208 complet ed [facility], INJECTABLE, QUADRIVALENT, PRESERVATIVE FREE 2020 150 complet ed [facility] PNEUMOCOCCAL POLYSACCHARID E PPV23 2020 33 complet ed [facility] COVID-19 (PFIZER), MRNA, LNP-S, PF, 30 MCG/0.3 ML DOSE 2 2020 208 complet ed HISTORICA L INFORMATI ON - FROM OTHER REGISTRY, [facility] COVID-19 (PFIZER), MRNA, LNP-S, PF, 30 MCG/0.3 ML DOSE 1 2020 208 complet ed [facility] ZOSTER RECOMBINANT 2 2019 187 complet ed no [facility] INFLUENZA, UNSPECIFIED FORMULATION 2019 88 complet ed [facility] INFLUENZA VACCINE, QUADRIVALENT, ADJUVANTED 1 2019 205 complet ed HISTORICA L INFORMATI ON - FROM OTHER REGISTRY, [facility] ZOSTER RECOMBINANT 1 2019 187 complet ed HISTORICA L INFORMATI ON - FROM OTHER REGISTRY, [facility] ZOSTER RECOMBINANT 1 2019 187 complet ed no [facility] INFLUENZA, UNSPECIFIED FORMULATION 2018 88 complet ed per [facility] INFLUENZA, HIGH DOSE SEASONAL 1 2017 135 complet ed HISTORICA L INFORMATI ON - FROM OTHER REGISTRY, [facility] PNEUMOCOCCAL POLYSACCHARID E PPV23 2 2016 33 complet ed HISTORICA L INFORMATI ON - FROM OTHER REGISTRY, [facility] PNEUMOCOCCAL CONJUGATE PCV 13 2 2015 133 complet ed HISTORICA L INFORMATI ON - FROM OTHER [facility], [facility] PNEUMOCOCCAL CONJUGATE PCV 13 1 2014 133 complet ed HISTORICA L INFORMATI ON - FROM OTHER REGISTRY, [facility] Results Combined list of recent chemistry, hematology and other laboratory results from Department of Defense and Veterans Affairs, ranging from 15 months to all on record, depending upon the facility. Order Name Results Value Reference Range Date Interpretation Specimen Comments Source TSH (MA-PB) THYROTROPI N [UNITS/VOL UME] IN SERUM OR PLASMA 2.232 u[IU]/mL 0.470 - 5.000 08/04 Specimen Type: SERUM No comment entered. Ordering Provider: DANIEL LILLY MD Report Released Date/Time: Jan 01, 2024 11:07 AM Reporting Lab: [place] [address] Performing Lab: [address] B12 COBALAMIN (VITAMIN B12) [MASS/VOLU ME] IN SERUM OR PLASMA 156 pg/mL 213 - 816 08/04 L Specimen Type: SERUM No comment entered. Ordering Provider: DANIEL LILLY MD Report Released Date/Time: Jan 01, 2024 11:07 AM Reporting Lab: [place] [address] Performing Lab: [address] HGA1C HEMOGLOBIN A1C/HEMOGL OBIN.TOTAL IN BLOOD 8.1 4.0 - 6.0 08/04 H Specimen Type: BLOOD No comment entered. Ordering Provider: DANIEL LILLY MD Report Released Date/Time: Jan 01, 2024 11:07 AM Reporting Lab: [facility] [address] [facility] [address] Performing Lab: [facility] [address] [facility] [address] [facility] VITAMIN D, 25-HYDRO XY 25-HYDROXY VITAMIN D3 [MASS/VOLU ME] IN SERUM OR PLASMA 42.3 ng/mL 30 - 96 08/04 Specimen Type: SERUM No comment entered. Ordering Provider: DANIEL LILLY MD Report Released Date/Time: Jan 01, 2024 11:07 AM Reporting Lab: [facility] [address] [facility] [address] Performing Lab: [facility] [address] [place] [address] URINE ALBUMIN PANEL (MA) ALBUMIN/CR EATININE [MASS RATIO] IN URINE 105.0 mg/g - 30 08/04 H Specimen Type: URINE No comment entered. Ordering Provider: DANIEL LILLY MD Report Released Date/Time: Jan 01, 2024 11:07 AM Reporting Lab: [facility] [address] [facility] [address] Performing Lab: [facility] [address] [place] [id number] URINE ALBUMIN PANEL (MA) CREATININE [MASS/VOLU ME] IN URINE 28 mg/dL 08/04 Specimen Type: URINE No comment entered. Ordering Provider: DANIEL LILLY MD Report Released Date/Time: Jan 01, 2024 11:07 AM Reporting Lab: [facility] [address] [facility] [address] Performing Lab: [facility] [address] [place] [phone] URINE ALBUMIN PANEL (MA) MICROALBUM IN [MASS/VOLU ME] IN URINE 2.9 mg/dL 08/04 Specimen Type: URINE No comment entered. Ordering Provider: DANIEL LILLY MD Report Released Date/Time: Jan 01, 2024 11:07 AM Reporting Lab: [facility] [address] [facility] [address] Performing Lab: [facility] [address] URINALYS IS (MA-EV) COLOR OF URINE Colorles s 08/04 Specimen Type: URINE Comment: Microscopic not indicated Ordering Provider: DANIEL LILLY MD Report Released Date/Time: Jan 01, 2024 11:07 AM Reporting Lab: [facility] [address] [place] [address] Performing Lab: [address] URINALYS IS (MA-EV) SPECIFIC GRAVITY OF URINE 1.011 08/04 Specimen Type: URINE Comment: Microscopic not indicated Ordering Provider: DANIEL LILLY MD Report Released Date/Time: Jan 01, 2024 11:07 AM Reporting Lab: [facility] [address] [place] [address] Performing Lab: [address] URINALYS IS (MA-EV) UROBILINOG EN [MASS/VOLU ME] IN URINE BY TEST STRIP Normalmg /dL 0.1 - 1.0 08/04 Specimen Type: URINE Comment: Microscopic not indicated Ordering Provider: DANIEL LILLY MD Report Released Date/Time: Jan 01, 2024 11:07 AM Reporting Lab: [facility] [address] [place] [address] Performing Lab: [facility] [address] [place] [address] URINALYS IS (MA-EV) BILIRUBIN. TOTAL [PRESENCE] IN URINE BY TEST STRIP Negative mg/dL 08/04 Specimen Type: URINE Comment: Microscopic not indicated Ordering Provider: DANIEL LILLY MD Report Released Date/Time: Jan 01, 2024 11:07 AM Reporting Lab: [facility] [address] [place] [address] Performing Lab: [facility] [address] URINALYS IS (MA-EV) KETONES [MASS/VOLU ME] IN URINE BY TEST STRIP Negative mg/dL 08/04 Specimen Type: URINE Comment: Microscopic not indicated Ordering Provider: DANIEL LILLY MD Report Released Date/Time: Jan 01, 2024 11:07 AM Reporting Lab: [facility] [address] [facility] [address] Performing Lab: [facility] [address] [facility] [address] [facility] URINALYS IS (MA-EV) PROTEIN [MASS/VOLU ME] IN URINE BY TEST STRIP Negative mg/dL 08/04 Specimen Type: URINE Comment: Microscopic not indicated Ordering Provider: DANIEL LILLY MD Report Released Date/Time: Jan 01, 2024 11:07 AM Reporting Lab: [facility] [address] [place] [phone] Performing Lab: [facility] [address] [place] [id number] [facility] URINALYS IS (MA-EV) PH OF URINE BY TEST STRIP 6.5 5.0 - 8.0 08/04 Specimen Type: URINE Comment: Microscopic not indicated Ordering Provider: DANIEL LILLY MD Report Released Date/Time: Jan 01, 2024 11:07 AM Reporting Lab: [facility] [address] [facility] [address] Performing Lab: [facility] [address] [place] [phone] [facility] URINALYS IS (MA-EV) APPEARANCE OF URINE Clear 08/04 Specimen Type: URINE Comment: Microscopic not indicated Ordering Provider: DANIEL LILLY MD Report Released Date/Time: Jan 01, 2024 11:07 AM Reporting Lab: [facility] [address] [place] [phone] Performing Lab: [facility] [address] [facility] URINALYS IS (MA-EV) HEMOGLOBIN [MASS/VOLU ME] IN URINE BY TEST STRIP Negative mg/dL 08/04 Specimen Type: URINE Comment: Microscopic not indicated Ordering Provider: DANIEL LILLY MD Report Released Date/Time: Jan 01, 2024 11:07 AM Reporting Lab: [facility] [address] [place] [phone] Performing Lab: [facility] [address] [place] [phone] [place] [address] URINALYS IS (MA-EV) NITRITE [PRESENCE] IN URINE BY TEST STRIP Negative mg/dL 08/04 Specimen Type: URINE Comment: Microscopic not indicated Ordering Provider: DANIEL LILLY MD Report Released Date/Time: Jan 01, 2024 11:07 AM Reporting Lab: [facility] [address] [place] [phone] Performing Lab: [address] URINALYS IS (MA-EV) LEUKOCYTE ESTERASE [PRESENCE] IN URINE BY TEST STRIP Negative 08/04 Specimen Type: URINE Comment: Microscopic not indicated Ordering Provider: DANIEL LILLY MD Report Released Date/Time: Jan 01, 2024 11:07 AM Reporting Lab: [facility] [address] [place] [phone] Performing Lab: [address] URINALYS IS (MA-EV) GLUCOSE [PRESENCE] IN URINE >1000mg/ dL 08/04 H Specimen Type: URINE Comment: Microscopic not indicated Ordering Provider: DANIEL LILLY MD Report Released Date/Time: Jan 01, 2024 11:07 AM Reporting Lab: [facility] [address] [place] [phone] Performing Lab: [facility] [address] [place] [address] LIPID PANEL (MA) CHOLESTERO L [MASS/VOLU ME] IN SERUM OR PLASMA 127 mg/dL 0 - 200 08/04 Specimen Type: PLASMA No comment entered. Ordering Provider: DANIEL LILLY MD Report Released Date/Time: Jan 01, 2024 11:07 AM Reporting Lab: [address] [place] [address] Performing Lab: [facility] [address] [facility] [address] [facility] LIPID PANEL (MA) TRIGLYCERI DE [MASS/VOLU ME] IN SERUM OR PLASMA 89 mg/dL 0 - 150 08/04 Specimen Type: PLASMA No comment entered. Ordering Provider: DANIEL LILLY MD Report Released Date/Time: Jan 01, 2024 11:07 AM Reporting Lab: [facility] [address] [phone] Performing Lab: [facility] [address] [place], [place] [id number] [address] LIPID PANEL (MA) CHOLESTERO L IN LDL [MASS/VOLU ME] IN SERUM OR PLASMA BY CALCULATIO N 57 mg/dL 08/04 Specimen Type: PLASMA No comment entered. Ordering Provider: DANIEL LILLY MD Report Released Date/Time: Jan 01, 2024 11:07 AM Reporting Lab: [facility] [address] [facility] [phone] Performing Lab: [address] [address] [facility] LIPID PANEL (MA) CHOLESTERO L IN HDL [MASS/VOLU ME] IN SERUM OR PLASMA 52 mg/dL 40 08/04 Specimen Type: PLASMA No comment entered. Ordering Provider: DANIEL LILLY MD Report Released Date/Time: Jan 01, 2024 11:07 AM Reporting Lab: [facility] [address] [facility] [phone] Performing Lab: [address] [phone] [place] [address] COMPREHE NSIVE METABOLI C PANEL CREATININE [MASS/VOLU ME] IN SERUM OR PLASMA 1.1 mg/dL .7 - 1.3 08/04 Specimen Type: PLASMA No comment entered. Ordering Provider: DANIEL LILLY MD Report Released Date/Time: Jan 01, 2024 11:07 AM Reporting Lab: [facility] [address] [place] [phone] Performing Lab: [facility] [address] [facility] [address] [facility] COMPREHE NSIVE METABOLI C PANEL UREA NITROGEN [MASS/VOLU ME] IN SERUM OR PLASMA 19 mg/dL 9.0 - 25.0 08/04 Specimen Type: PLASMA No comment entered. Ordering Provider: DANIEL LILLY MD Report Released Date/Time: Jan 01, 2024 11:07 AM Reporting Lab: [facility] [address] [place] [phone] Performing Lab: [facility] [address] [facility] [phone] [address] COMPREHE NSIVE METABOLI C PANEL GLUCOSE [MASS/VOLU ME] IN SERUM OR PLASMA 144 mg/dL 72 - 99 08/04 H Specimen Type: PLASMA No comment entered. Ordering Provider: DANIEL LILLY MD Report Released Date/Time: Jan 01, 2024 11:07 AM Reporting Lab: [facility] [address] [facility] [address] Performing Lab: [facility] [address] [facility] [phone] [address] COMPREHE NSIVE METABOLI C PANEL SODIUM [MOLES/VOL UME] IN SERUM OR PLASMA 140 meq/L 136 - 145 08/04 Specimen Type: PLASMA No comment entered. Ordering Provider: DANIEL LILLY MD Report Released Date/Time: Jan 01, 2024 11:07 AM Reporting Lab: [facility] [address] [facility] [address] Performing Lab: [facility] [address] [facility] [address] COMPREHE NSIVE METABOLI C PANEL POTASSIUM [MOLES/VOL UME] IN SERUM OR PLASMA 4.7 meq/L 3.5 - 5 08/04 Specimen Type: PLASMA No comment entered. Ordering Provider: DANIEL LILLY MD Report Released Date/Time: Jan 01, 2024 11:07 AM Reporting Lab: [facility] [address] [facility] [address] Performing Lab: [address] [place] [address] [facility] COMPREHE NSIVE METABOLI C PANEL CHLORIDE [MOLES/VOL UME] IN SERUM OR PLASMA 103 meq/L 98 - 107 08/04 Specimen Type: PLASMA No comment entered. Ordering Provider: DANIEL LILLY MD Report Released Date/Time: Jan 01, 2024 11:07 AM Reporting Lab: [facility] [address] [place] [phone] Performing Lab: [facility] [address] [place] [phone] [facility] COMPREHE NSIVE METABOLI C PANEL CARBON DIOXIDE, TOTAL [MOLES/VOL UME] IN SERUM OR PLASMA 25 meq/L 22 - 31 08/04 Specimen Type: PLASMA No comment entered. Ordering Provider: DANIEL LILLY MD Report Released Date/Time: Jan 01, 2024 11:07 AM Reporting Lab: [facility] [address] [place] [phone] Performing Lab: [facility] [address] [place], [place] [phone] [facility] COMPREHE NSIVE METABOLI C PANEL CALCIUM [MASS/VOLU ME] IN SERUM OR PLASMA 9.0 mg/dL 8.4 - 10.4 08/04 Specimen Type: PLASMA No comment entered. Ordering Provider: DNAIEL LILLY MD Report Released Date/Time: Jan 01, 2024 11:07 AM Reporting Lab: [facility] [address] [facility] [address] Performing Lab: [facility] [address] [facility] [address] [facility] COMPREHE NSIVE METABOLI C PANEL PROTEIN [MASS/VOLU ME] IN SERUM OR PLASMA 7.1 g/dL 6.0 - 8.6 08/04 Specimen Type: PLASMA No comment entered. Ordering Provider: DANIEL LILLY MD Report Released Date/Time: Jan 01, 2024 11:07 AM Reporting Lab: [facility] [address] [facility] [address] Performing Lab: [place] [facility] [address] [place] [address] COMPREHE NSIVE METABOLI C PANEL ALBUMIN [MASS/VOLU ME] IN SERUM OR PLASMA 4.3 g/dL 3.4 - 5.0 08/04 Specimen Type: PLASMA No comment entered. Ordering Provider: DANIEL LILLY MD Report Released Date/Time: Jan 01, 2024 11:07 AM Reporting Lab: [facility] [address] [place] [address] Performing Lab: [address] COMPREHE NSIVE METABOLI C PANEL BILIRUBIN. TOTAL [MASS/VOLU ME] IN SERUM OR PLASMA 0.3 mg/dL 0.2 - 1.2 08/04 Specimen Type: PLASMA No comment entered. Ordering Provider: DANIEL LILLY MD Report Released Date/Time: Jan 01, 2024 11:07 AM Reporting Lab: [facility] [address] [place] [address] Performing Lab: [address] COMPREHE NSIVE METABOLI C PANEL ALKALINE PHOSPHATAS E [ENZYMATIC ACTIVITY/V OLUME] IN SERUM OR PLASMA 44 U/L 40 - 150 08/04 Specimen Type: PLASMA No comment entered. Ordering Provider: DANIEL LILLY MD Report Released Date/Time: Jan 01, 2024 11:07 AM Reporting Lab: [facility] [address] [place] [address] Performing Lab: [place] [id number] [place] [address] COMPREHE NSIVE METABOLI C PANEL ASPARTATE AMINOTRANS FERASE [ENZYMATIC ACTIVITY/V OLUME] IN SERUM OR PLASMA 12 U/L 5 - 34 08/04 Specimen Type: PLASMA No comment entered. Ordering Provider: DANIEL LILLY MD Report Released Date/Time: Jan 01, 2024 11:07 AM Reporting Lab: [facility] [address] [place] [address] Performing Lab: [place] [facility] [address] [place] [phone] COMPREHE NSIVE METABOLI C PANEL ALANINE AMINOTRANS FERASE [ENZYMATIC ACTIVITY/V OLUME] IN SERUM OR PLASMA 10 U/L 8 - 40 08/04 Specimen Type: PLASMA No comment entered. Ordering Provider: DANIEL LILLY MD Report Released Date/Time: Jan 01, 2024 11:07 AM Reporting Lab: [facility] [address] [place] [address] Performing Lab: [facility] [address] [place] [address] COMPREHE NSIVE METABOLI C PANEL GLOMERULAR FILTRATION RATE/1.73 SQ M.PREDICTE D [VOLUME RATE/AREA] IN SERUM, PLASMA OR BLOOD BY CREATININE -BASED FORMULA (CKD-EPI 2020) 70 08/04 Specimen Type: PLASMA No comment entered. Ordering Provider: DANIEL LILLY MD Report Released Date/Time: Jan 01, 2024 11:07 AM Reporting Lab: [facility] [address] [place] [phone] Performing Lab: [address] CBC LEUKOCYTES [#/VOLUME] IN BLOOD BY AUTOMATED COUNT 7.5 10*3/uL 3.6 - 11.2 08/04 Specimen Type: BLOOD No comment entered. Ordering Provider: DANIEL LILLY MD Report Released Date/Time: Jan 01, 2024 11:07 AM Reporting Lab: [facility] [address] [place] [phone] Performing Lab: [facility] [address] CBC ERYTHROCYT ES [#/VOLUME] IN BLOOD BY AUTOMATED COUNT 4.13 10*6/uL 4.10 - 5.70 08/04 Specimen Type: BLOOD No comment entered. Ordering Provider: DANIEL LILLY MD Report Released Date/Time: Jan 01, 2024 11:07 AM Reporting Lab: [facility] [address] [place] [phone] Performing Lab: [facility] [address] [facility] [address] [facility] CBC HEMOGLOBIN [MASS/VOLU ME] IN BLOOD 10.7 g/dL 13.1 - 16.8 08/04 L Specimen Type: BLOOD No comment entered. Ordering Provider: DANIEL LILLY MD Report Released Date/Time: Jan 01, 2024 11:07 AM Reporting Lab: [facility] [address] [facility] [address] Performing Lab: [facility] [address] [place] [phone] [place] [address] CBC HEMATOCRIT [VOLUME FRACTION] OF BLOOD 36.9 38.2 - 48.4 08/04 L Specimen Type: BLOOD No comment entered. Ordering Provider: DANIEL LILLY MD Report Released Date/Time: Jan 01, 2024 11:07 AM Reporting Lab: [facility] [address] [facility] [address] Performing Lab: [facility] [address] [place] [phone] CBC MCV [ENTITIC VOLUME] BY AUTOMATED COUNT 89.3 fL 80.0 - 100.0 08/04 Specimen Type: BLOOD No comment entered. Ordering Provider: DANIEL LILLY MD Report Released Date/Time: Jan 01, 2024 11:07 AM Reporting Lab: [facility] [address] [facility] [address] Performing Lab: [facility] [address] [place] [phone] [facility] CBC MCH [ENTITIC MASS] BY AUTOMATED COUNT 25.9 pg 27.0 - 34.0 08/04 L Specimen Type: BLOOD No comment entered. Ordering Provider: DANIEL LILLY MD Report Released Date/Time: Jan 01, 2024 11:07 AM Reporting Lab: [facility] [address] [facility] [address] Performing Lab: [facility] [address] [facility] [address] [facility] CBC MCHC [MASS/VOLU ME] BY AUTOMATED COUNT 29.0 g/dL 33.0 - 36.0 08/04 L Specimen Type: BLOOD No comment entered. Ordering Provider: DANIEL LILLY MD Report Released Date/Time: Jan 01, 2024 11:07 AM Reporting Lab: [place] [address] Performing Lab: [address] CBC PLATELETS [#/VOLUME] IN BLOOD BY AUTOMATED COUNT 273 10*3/uL 150 - 400 08/04 Specimen Type: BLOOD No comment entered. Ordering Provider: DANIEL LILLY MD Report Released Date/Time: Jan 01, 2024 11:07 AM Reporting Lab: [place] [address] Performing Lab: [address] CBC PLATELET MEAN VOLUME [ENTITIC VOLUME] IN BLOOD BY AUTOMATED COUNT 11.2 fL 7.5 - 11.2 08/04 Specimen Type: BLOOD No comment entered. Ordering Provider: DANIEL LILLY MD Report Released Date/Time: Jan 01, 2024 11:07 AM Reporting Lab: [place] [address] Performing Lab: [address] CBC ERYTHROCYT E DISTRIBUTI ON WIDTH [RATIO] BY AUTOMATED COUNT 18.5 11.8 - 15.1 08/04 H Specimen Type: BLOOD No comment entered. Ordering Provider: DANIEL LILLY MD Report Released Date/Time: Jan 01, 2024 11:07 AM Reporting Lab: [place] [address] Performing Lab: [address] CBC LYMPHOCYTE S/100 LEUKOCYTES IN BLOOD BY AUTOMATED COUNT 15.0 08/04 Specimen Type: BLOOD No comment entered. Ordering Provider: DANIEL LILLY MD Report Released Date/Time: Jan 01, 2024 11:07 AM Reporting Lab: [facility] [address] [facility] [address] Performing Lab: [facility] [address] [facility] [address] [facility] CBC MONOCYTES/ 100 LEUKOCYTES IN BLOOD BY AUTOMATED COUNT 9.7 08/04 Specimen Type: BLOOD No comment entered. Ordering Provider: DANIEL LILLY MD Report Released Date/Time: Jan 01, 2024 11:07 AM Reporting Lab: [facility] [address] [facility] [address] Performing Lab: [facility] [address] [place] [phone] [facility] CBC NEUTROPHIL S/100 LEUKOCYTES IN BLOOD BY AUTOMATED COUNT 71.9 08/04 Specimen Type: BLOOD No comment entered. Ordering Provider: DANIEL LILLY MD Report Released Date/Time: Jan 01, 2024 11:07 AM Reporting Lab: [facility] [address] [facility] [address] Performing Lab: [facility] [address] [facility] [address] [facility] CBC EOSINOPHIL S/100 LEUKOCYTES IN BLOOD BY AUTOMATED COUNT 2.1 08/04 Specimen Type: BLOOD No comment entered. Ordering Provider: DANIEL LILLY MD Report Released Date/Time: Jan 01, 2024 11:07 AM Reporting Lab: [facility] [address] [facility] [address] Performing Lab: [facility] [address] [place] [phone] [facility] CBC BASOPHILS/ 100 LEUKOCYTES IN BLOOD BY AUTOMATED COUNT 0.9 08/04 Specimen Type: BLOOD No comment entered. Ordering Provider: DANIEL LILLY MD Report Released Date/Time: Jan 01, 2024 11:07 AM Reporting Lab: [facility] [address] [facility] [address] Performing Lab: [facility] [address] [place] [phone] [facility] CBC LYMPHOCYTE S [#/VOLUME] IN BLOOD BY AUTOMATED COUNT 1.13 10*3/uL 0.77 - 4.50 08/04 Specimen Type: BLOOD No comment entered. Ordering Provider: DANIEL LILLY MD Report Released Date/Time: Jan 01, 2024 11:07 AM Reporting Lab: [facility] [address] [place] [address] Performing Lab: [address] CBC MONOCYTES [#/VOLUME] IN BLOOD BY AUTOMATED COUNT 0.73 10*3/uL 0.19 - 0.8 08/04 Specimen Type: BLOOD No comment entered. Ordering Provider: DANIEL LILLY MD Report Released Date/Time: Jan 01, 2024 11:07 AM Reporting Lab: [place] [address] Performing Lab: [address] CBC NEUTROPHIL S [#/VOLUME] IN BLOOD BY AUTOMATED COUNT 5.42 10*3/uL 2.10 - 8.00 08/04 Specimen Type: BLOOD No comment entered. Ordering Provider: DANIEL LILLY MD Report Released Date/Time: Jan 01, 2024 11:07 AM Reporting Lab: [place] [phone] Performing Lab: [address] CBC EOSINOPHIL S [#/VOLUME] IN BLOOD BY AUTOMATED COUNT 0.16 10*3/uL 0.00 - 0.60 08/04 Specimen Type: BLOOD No comment entered. Ordering Provider: DANIEL ILLLY MD Report Released Date/Time: Jan 01, 2024 11:07 AM Reporting Lab: [place] [phone] Performing Lab: [address] CBC BASOPHILS [#/VOLUME] IN BLOOD BY AUTOMATED COUNT 0.07 10*3/uL 0.00 - 0.20 08/04 Specimen Type: BLOOD No comment entered. Ordering Provider: DANIEL LILLY MD Report Released Date/Time: Jan 01, 2024 11:07 AM Reporting Lab: [facility] [address] [place] [phone] Performing Lab: [facility] [address] [place] [address] CBC IMMATURE GRANULOCYT ES/100 LEUKOCYTES IN BLOOD BY AUTOMATED COUNT 0.4 08/04 Specimen Type: BLOOD No comment entered. Ordering Provider: DANIEL LILLY MD Report Released Date/Time: Jan 01, 2024 11:07 AM Reporting Lab: [facility] [address] [place], [place] [address] Performing Lab: [address] CBC IMMATURE GRANULOCYT ES [#/VOLUME] IN BLOOD BY AUTOMATED COUNT 0.03 10*3/uL 0.00 - 0.05 08/04 Specimen Type: BLOOD No comment entered. Ordering Provider: DANIEL LILLY MD Report Released Date/Time: Jan 01, 2024 11:07 AM Reporting Lab: [facility] [address] [place] [address] Performing Lab: [address] HGA1C HEMOGLOBIN A1C/HEMOGL OBIN.TOTAL IN BLOOD 7.9 4.0 - 6.0 12/31 H Specimen Type: BLOOD No comment entered. Ordering Provider: DANIEL LILLY MD Report Released Date/Time: Dec 04, 2023 08:14 AM Reporting Lab: [facility] [address] [place], [place] [phone] Performing Lab: [address] Vital Signs Combined list of inpatient and outpatient Vital Signs from Department of Defense and Veterans Affairs, ranging from 12 months to all on record, depending upon the facility. Vital Sign Value Date Comments Source SYSTOLIC BLOOD PRESSURE 122 08/04/2024 11:40:25 [facility] DIASTOLIC BLOOD PRESSURE 62 08/04/2024 11:40:25 [facility] PULSE OXIMETRY 92 08/04/2024 11:40:25 [facility] WEIGHT 169 08/04/2024 11:40:25 [facility] BMI 30 kg/m2 08/04/2024 11:40:25 [facility] PAIN 0 08/04/2024 11:40:25 [facility] TEMPERATURE 98.1 08/04/2024 11:40:25 [facility] PULSE 82 08/04[facility]24 [facility] RESPIRATION 18 08/04/2024 [facility]:40[facility] SYSTOLIC BLOOD PRESSURE 122 01/01/2024 10:49:17 [facility] DIASTOLIC BLOOD PRESSURE 68 01/01/2024 10:49:17 [facility] PULSE OXIMETRY 92 01/01/2024 10:49:17 [facility] WEIGHT 182 01/01/2024 10:49:[facility] BMI 32 kg/m2 01/01/2024 10:49:17 [facility] PAIN 0 01/01/2024 10:49:17 [facility] TEMPERATURE 97.9 01/01/2024 10[facility]49[facility] PULSE 99 01/01/2024 [facility]:49[facility] RESPIRATION 18 01/01/2024 10:49:17 [facility] Encounters Combined list of: 1) Encounters from Department of Veterans Affairs facilities going backup to the last 18 months, not all [place] inpatient encounters are included; 2) Encounters from the Department of [facility] facilities going backup to 280 months. 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 DANIEL MON MD 06/09 [facility] Outpatient Encounter [id number] 06/09 [facility] Outpatient Encounter [id number] 06/11 [facility]OP EST JULY X REQ PHY/QHP [id number] Diagnos is: ICD-10- CM E11.9 Type 2 diabete s mellitu s without complic ations JEFF GOINS 06/11 [facility] Outpatient Encounter [id number] Imelda ARIAS 09/15 [facility] Outpatient Encounter [id number] 10/10 [facility] Outpatient Encounter [id number] 10/15 [facility] Outpatient Encounter [id number] 10/16 [facility] Outpatient Encounter [id number] Rizwan BEATTY 10/16 [facility] Outpatient Encounter [id number] 10/16 [facility] En[facility] [id number] 11/12 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, l eye JEFF GUILLORY J 12/02 [facility] Outpatient Encounter [id number] 12/19 [facility] Outpatient Encounter [id number] 12/23 [facility] Outpatient Encounter [id number] 12/23 [facility] OFFICE O/P EST MOD 30 MIN [id number] Diagnos is: ICD-10- CM 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 DANIEL Huang MD 12/31 [facility] En[facility] [id number] 12/31 [facility] MTMS BY PHARM ADDL 15 MIN [id number] Diagnos is: ICD-10- CM E11.9 Type 2 diabete s mellitu s without complic ations JANAE BELTRAN W 12/31 [facility] En[facility] [id number] Junior DIETZ 01/01 [facility] QNHP OL DIG ASSMT&MGMT 11-20 [id number] Diagnos is: ICD-10- CM E11.9 Type 2 diabete s mellitu s without complic ations TAMIR RIVERO 01/05 [facility] Outpatient Encounter [id number] 01/09 [facility] Outpatient Encounter [id number] 01/09 [facility] Outpatient Encounter [id number] 01/09 [facility] Outpatient Encounter [id number] 01/09 [facility] Outpatient Encounter [id number] 01/14 [facility] MTMS BY PHARM EST 15 MIN [id number] Diagnos is: ICD-10- CM E11.9 Type 2 diabete s mellitu s without complic ations DEVIN,JANAE ID W 02/17 [facility] Outpatient Encounter [id number] 02/20 [facility] Outpatient Encounter [id number] 03/04 [facility] Outpatient Encounter [id number] 03/09 [facility] MTMS BY PHARM ADDL 15 MIN [id number] Diagnos is: ICD-10- CM E11.9 Type 2 diabete s mellitu s without complic ations DEVIN,JANAE ID W 03/24 [facility] Outpatient Encounter [id number] 03/27 [facility] Outpatient Encounter [id number] 03/31 [facility] Outpatient Encounter [id number] 04/01 [facility] Outpatient Encounter [id number] 04/18 [facility] En[facility] [id number] 04/21 [facility] Outpatient Encounter [id number] 05/05 [facility] MTMS BY PHARM ADDL 15 MIN [id number] Diagnos is: ICD-10- CM E11.9 Type 2 diabete s mellitu s without complic ations DEVIN,JANAE ID W 05[facility] [id number] ELLIOT ROBBINS R 05/26 [facility] Outpatient Encounter [id number] 06/04 [facility] [place] Out[place] En[place] [id number] 06/04 [place] [facility] Outpatient Encounter [id number] 06/04 [facility] Outpatient Encounter [id number] 06/05 [facility] [place] MTMS BY PHARM EST 15 MIN [id number] Diagnos is: ICD-10- CM E11.9 Type 2 diabete s mellitu s without complic ations DEVIN,JANAE ID W 07/07 [facility] Outpatient Encounter [id number] RUDDYNICOLECANDACE Roland 07/13 [facility] PROGRAM INTAKE ASSESSMENT [id number] Diagnos is: ICD-10- CM Z74.1 Need for assista nce with persona l care CARMEN LAMJack Roland 07/13 [facility] Outpatient Encounter [id number] 07/31 [facility] Outpatient Encounter [id number] 08/04 [facility] OFFICE O/P EST HI 40 MIN [id number] Diagnos is: ICD-10- CM I50.9 Heart failure , unspeci DANIEL Pennington MD 08/04 [facility] Outpatient Encounter [id number] 08/04 [facility] OFF/OP EST MAY X REQ PHY/QHP [id number] Diagnos is: ICD-10- CM R79.89 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 ed 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 Outpatient Encounter [id number] 10/13 [facility] Outpatient Encounter [id number] 10/27 [facility] Social History Combined list of available smoking, tobacco, and other social history from [facility] [employer] and [facility] Affairs facilities. Social History Type Response Date Comment Sourc e Tobacco smoking status NHIS [place]-TO[place] USE FORMER CIGARETTES 08/04/2024 [facility] History of tobacco use [place]-TO[place] NEVER USED OTHER TYPE 08/04/2024 [facility] History of tobacco use [place]-TO[place] QUIT 15 YRS OR MORE 06/10/2023 [facility] History of tobacco use [place]-TO[place]CO NEVER USED 12/22/2021 [facility] History of tobacco use [place]-TOBACCO FORMER USER 12/22/2021 [facility] History of tobacco use [place] FORMER USER 12/19/2020 [facility] History of tobacco use [place]-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 Additional future care activities may be listed in the Assessment and Plan section. Date/Time Care Activity Care Activity Detail Facili ty 11/24/2024 AMBULATORY - SURGERY AMBULATORY - SURGERY [facility] Advance Directives List of completed, amended, or rescinded Advance Directives on record at Department of [facility] Affairs facilities. An actual copy of the Directive is not included. Date Advance Directive Provider Source 03/09/2024 ADVANCE DIRECTIVE CANDACE [facility]
--- OUTSIDE RECORDS SUMMARY | 2024-11-12 11:21 | XMS_ITS ---
Author Organization [facility] Physician Office Building 1 [address] [address] [place] [address] Care Team Providers Care Glost Tile Shader Name Role Phone Shefali Sanchez MD Primary Care Provider [phone] Active Problems Problem Noted Date Diagnosed Date Class 1 obesity due to exces s calories with serious comorbidity and body mass index (BMI) of 30.0 to 30.9 in adult 05/17/2022 Assessment & Plan (05/17/2022 10:40 AM FIELD OPERATIONS COORDINATOR): Discussed healthy diet and importance of regular physical activity (20- 30min/day, 150min/wk). [facility] 02/[facility] & has gained 11# since that time. Discussed activities available (walking group, exercises classes). Asked him to join in. Gym available also. 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 Last lipid panel: 08/04/24 LDL=57, TG=89. Assessment & Plan (05/05/2024 10:44 AM FIELD OPERATIONS COORDINATOR): Chronic problem, well controlled on current Atorvastatin 40mg. Last lipid panel: 10/09/23 LDL=63, TG=81. Assessment & Plan (10/25/2023 10:44 AM CDT): Chronic problem, well controlled on current Atorvastatin 40mg. Last lipid panel: 10/09/23 LDL=63, TG=81. Assessment & Plan (07/29/2023 10:18 AM CDT): Chronic problem, well controlled on current Atorvastatin 40mg. Last lipid panel: 09/19/22 LDL=46, UQ=107. Assessment & Plan (03/28/2023 11:31 AM FIELD OPERATIONS COORDINATOR): Chronic problem, well controlled on current Atorvastatin 40mg. Last lipid panel: 09/19/22 LDL=46, LU=134. Assessment & Plan (11/29/2022 2:14 PM CDT): Chronic, well-controlled Continue statin therapy with atorvastatin Assessment & Plan (08/30/2022 10:15 AM CDT): Chronic problem, well controlled on current Atorvastatin 40mg. Last lipid panel: 06/28/21 LDL=47, RB=002 Will update labs today. Verified phone #/address to contact re: results. Assessment & Plan (05/17/2022 10:59 AM FIELD OPERATIONS COORDINATOR): Chronic problem, well controlled on current Atorvastatin 40mg. Last lipid panel: 06/28/21 LDL=47, GP=461 No changes at this time. Assessment & Plan (07/20/2021 10:47 AM CDT): Chronic problem. On statin therapy, no changes. [facility]. Assessment & Plan (04/27/2021 10:15 AM FIELD OPERATIONS COORDINATOR): Chronic problem. On statin therapy, no changes. Assessment & Plan (10/28/2020 11:00 AM CDT): At goal on current medications. Continue statin therapy. Assessment & Plan (06/30/2020 10:52 AM CDT): Goal of treatment , LDL cholesterol less than 100 ( less than 70 in patients with history of heart attacks and / or strokes ) NonHDL cholesterol ( total cholesterol minus HDL cholesterol ) goal less than 130 ( less than 100 in patients with history of heart attacks and / or strokes ) Low cholesterol, low fat diet was discussed and advised. Daily exercise On statin therapy with Atorvastatin Assessment & Plan (02/23/2020 12:23 PM FIELD OPERATIONS COORDINATOR): Goal of treatment , LDL cholesterol less than 100 ( less than 70 in patients with history of heart attacks and / or strokes ) NonHDL cholesterol ( total cholesterol minus HDL cholesterol ) goal less than 130 ( less than 100 in patients with history of heart attacks and / or strokes ) Low cholesterol, low fat diet was discussed and advised. Daily exercise On statin therapy Assessment & Plan (07/31/2019 11:52 AM CDT): Will order lipid panel Assessment & Plan (04/09/2019 3:49 PM FIELD OPERATIONS COORDINATOR): Goal of treatment , LDL cholesterol less than 100 ( less than 70 in patients with history of heart attacks and / or strokes ) NonHDL cholesterol ( total cholesterol minus HDL cholesterol ) goal less than 130 ( less than 100 in patients with history of heart attacks and / or strokes ) Low cholesterol, low fat diet was discussed and advised. Daily exercise On statin therapy with Lipitor Assessment & Plan (06/24/2018 11:33 AM CDT): Goal of treatment , LDL cholesterol less than 100 ( less than 70 in patients with history of heart attacks and / or strokes ) NonHDL cholesterol ( total cholesterol minus HDL cholesterol ) goal less than 130 ( less than 100 in patients with history of heart attacks and / or strokes ) Low cholesterol, low fat diet was discussed and advised. Daily exercise On statin therapy Assessment & Plan (12/19/2017 3:09 PM CDT): Goal of treatment , LDL cholesterol less than 100 ( less than 70 in patients with history of heart attacks and / or strokes ) NonHDL cholesterol ( total cholesterol minus HDL cholesterol ) goal less than 130 ( less than 100 in patients with history of heart attacks and / or strokes ) Low cholesterol, low fat diet was discussed and advised. Daily exercise On statin therapy Assessment & Plan (09/19/2017 10:59 AM CDT): Goal of treatment , LDL cholesterol less than 100 ( less than 70 in patients with history of heart attacks and / or strokes ) NonHDL cholesterol ( total cholesterol minus HDL cholesterol ) goal less than 130 ( less than 100 in patients with history of heart attacks and / or strokes ) Low cholesterol, low fat diet was discussed and advised. Daily exercise On statin therapy Assessment & Plan (08/08/2017 9:34 AM CDT): Goal of treatment , LDL cholesterol less than 100 ( less than 70 in patients with history of heart attacks and / or strokes ) NonHDL cholesterol ( total cholesterol minus HDL cholesterol ) goal less than 130 ( less than 100 in patients with history of heart attacks and / or strokes ) Low cholesterol, low fat diet was discussed and advised. Daily exercise On statin therapy Hypertension associated with diabetes 08/08/2017 Assessment & Plan (11/02/2024 10:35 AM CDT): Chronic problem, well controlled on current lisinopril 20mg daily & metoprolol tartrate 25mg bid. Dtr will call Dr Rajput re: low BP readings. Will have assisted living check BP more frequently. Dtr Ruben will push fluids today. Will check UA/Cx to see if any UTI (increased frequency, increased confusion). Assessment & Plan (05/05/2024 10:44 AM FIELD OPERATIONS COORDINATOR): Chronic problem, well controlled on current lisinopril 20mg daily & metoprolol tartrate 25mg bid. Assessment & Plan (10/25/2023 10:44 AM CDT): Chronic problem, well controlled on current lisinopril 20mg daily & metoprolol tartrate 25mg bid. Assessment & Plan (07/29/2023 10:18 AM CDT): Chronic problem, well controlled on current lisinopril 20mg daily & metoprolol tartrate 25mg bid. Assessment & Plan (03/28/2023 11:31 AM FIELD OPERATIONS COORDINATOR): Chronic problem, well controlled on current lisinopril 20mg daily & metoprolol tartrate 25mg bid. Assessment & Plan (11/29/2022 2:14 PM CDT): Chronic, well-controlled Continue lisinopril Assessment & Plan (08/30/2022 10:15 AM CDT): Chronic problem, well controlled on current regimen. currently taking lisinopril 20mg daily & metoprolol tartrate 25mg bid. Will update labs today. Verified phone #/address to contact re: results. Assessment & Plan (05/17/2022 10:58 AM FIELD OPERATIONS COORDINATOR): Chronic problem, well controlled on current regimen. currently taking lisinopril 20mg daily & metoprolol tartrate 25mg bid. No changes at this time. Assessment & Plan (03/22/2022 10:20 AM FIELD OPERATIONS COORDINATOR): Chronic, well controlled Continue Lisinopril Assessment & Plan (11/14/2021 10:08 AM CDT): Chronic, well controlled Importance of low salt diet and exercise were discussed Continue current meds Assessment & Plan (07/20/2021 10:47 AM CDT): Controlled on current medications, no changes. Assessment & Plan (04/27/2021 10:15 AM FIELD OPERATIONS COORDINATOR): Controlled on current medications, no changes. Assessment & Plan (10/28/2020 10:29 AM CDT): Controlled on current medications. Continue plan. Assessment & Plan (06/30/2020 10:52 AM CDT): Goal blood pressure is less than 140/85 Low salt diet was discussed andd recommended The importance of daily aerobic exercise was also emphasized. Continue current meds, including HYUN-I or ARB, e.g. Lisinopril Assessment & Plan (02/23/2020 12:23 PM FIELD OPERATIONS COORDINATOR): Goal blood pressure is less than 140/85 Low salt diet was discussed andd recommended The importance of daily aerobic exercise was also emphasized. Continue current meds, including HYUN-I or ARB, e.g. Assessment & Plan (11/19/2019 10:12 AM CDT): Goal blood pressure is less than 140/85 Low salt diet was discussed andd recommended The importance of daily aerobic exercise was also emphasized. Continue current meds, including HYUN-I or ARB, e.g. Lisinopril Assessment & Plan (04/09/2019 3:49 PM FIELD OPERATIONS COORDINATOR): Goal blood pressure is less than 140/85 Low salt diet recommended Daily aerobic exercise Continue current meds, including HYUN-I with lisinopril Assessment & Plan (11/06/2018 12:15 PM CDT): Goal blood pressure is less than 140/85 Low salt diet recommended Daily aerobic exercise Continue current meds, including HYUN-I or ARB Assessment & Plan (06/24/2018 11:34 AM CDT): Goal blood pressure is less than 140/85 Low salt diet recommended Daily aerobic exercise Continue current meds, including HYUN-I or ARB Check microalbumin Assessment & Plan (12/19/2017 3:08 PM CDT): Goal blood pressure is less than 140/85 Low salt diet recommended Daily aerobic exercise Continue current meds, including HYUN-I or ARB Assessment & Plan (09/19/2017 11:00 AM CDT): Goal blood pressure is less than 140/85 Low salt diet recommended Daily aerobic exercise Continue current meds, including HYUN-I or ARB Assessment & Plan (08/08/2017 9:35 AM CDT): Goal blood pressure is less than 140/85 Low salt diet recommended Daily aerobic exercise Continue current meds, including HYUN-I or ARB Pacemaker 02/22/2017 Overview (08/29/2021): Medtronic Dual Pacemaker. Dx; Second Degree AVB, Bradycardia, PAF. DOI 11/29/[address] Schmidt. [employer] remote monitoring Q3 mo, office pacer checks Q1 yr. 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 Needs FU pacer check. PVD (peripheral vascular disease) 02/22/2017 Assessment & Plan (02/22/2017 3:47 PM FIELD OPERATIONS COORDINATOR): Right LAZARUS 0.6, left LAZARUS 0.8. No claudication. Chronic obstructive pulmonary disease 02/22/2017 Type 2 diabetes mellitus wit h hyperglycemia, with long-term current use of insulin 12/18/2016 Assessment & Plan (11/02/2024 10:27 AM CDT): Chronic problem, A1c improved from 8.1% 08/04/24 to now 6.%. Having lows after breakfast & dinner. Will drop insulin at those meals from 12 units to 10 units. Will now take 10 units at all 3 meals. If still going low after the changes (in the next week or so); decrease to 8 units. Current medications: Metformin 1000mg twice daily Jardiance 25mg daily. Trulicity 1.5 mg weekly (05/2024) Novolog 10 units with 3 meals/day UTD on labs. UTD on DM eye (12/03/23 OR at [facility]). Discussed walking in place while watching TV, walking during commercial breaks Discussed activity (has gym, walking probram & exercise classes available). Discussed cutting down on carb/dessert intake. Discussed the need to strive for regular exercise (30min most days) and diet (get at least 4-5 servings of fruit and veggies daily, avoid processed foods, increase lean protein intake and decrease carb portions as well as fruit juices, regular soda & desserts). Watch carbs and simple sugars. Check blood sugars: Freestyle sandra 3+. Check the feet daily for skin breakdown and infection. Assessment & Plan (05/05/2024 11:13 AM FIELD OPERATIONS COORDINATOR): Chronic problem, A1c improved slightly from 7.6% 10/25/23 to now 7.4%. Will talk to OR doctor about moving up the trulicity from 0.75mg to 1.5mg weekly. May at that point need to start decreasing the mealtime Novolog doses (would start by 2 units at whatever meal is running lower). Current medications: Metformin 1000mg twice daily Jardiance 25mg daily. Trulicity 0.75mg weekly Novolog 12 units at breakfast, 10 units with lunch, dinner 12 units. Will update MA/Cr today. Verified that he uses [facility] Aware to check results/results letter in [facility] Will contact by phone if needed. UTD on DM eye ([facility] Was seen 12/03/23 at OR again. Letter sent to get copy Discussed walking in place while watching TV, walking during commercial breaks Discussed activity (has gym, walking probram & exercise classes available). Discussed cutting down on carb/dessert intake. Discussed the need to strive for regular exercise (30min most days) and diet (get at least 4-5 servings of fruit and veggies daily, avoid processed foods, increase lean protein intake and decrease carb portions as well as fruit juices, regular soda & desserts). Watch carbs and simple sugars. Check blood sugars: Freestyle sandra 3. Check the feet daily for skin breakdown and infection. Assessment & Plan (10/25/2023 11:14 AM CDT): Chronic problem, A1c worsened from 7.2% 07/29/23 to now 7.6%. was unable to get Mounjaro after last appt. Printed out scripts for dtr to take to OR at next appt. Instructed to watch blood sugars closely after starting Mounjaro. May need to decrease his meal time insulin if intake has decreased. If getting lows overnight--decrease the basaglar by 2 units weekly. Current medications: Metformin 1000mg twice daily Jardiance 25mg daily. mounjaro 2.5mg weekly x1 month then increase to 5mg weekly. Novolog 12 units at breakfast, 10 units with lunch, dinner 12 units. Basaglar 10 units nightly Will update CMP today. Verified that he uses [facility] Aware to check results/results letter in [facility] Will contact by phone if needed. UTD on DM eye (11/30/22 OR at [facility]). Scheduled 12/03/23 at OR again. Will send letter after that appt to get copy Discussed walking in place while watching TV, walking during commercial breaks Discussed activity (has gym, walking probram & exercise classes available). Discussed cutting down on carb/dessert intake. Discussed the need to strive for regular exercise (30min most days) and diet (get at least 4-5 servings of fruit and veggies daily, avoid processed foods, increase lean protein intake and decrease carb portions as well as fruit juices, regular soda & desserts). Watch carbs and simple sugars. Check blood sugars: Freestyle sandra 3. Check the feet daily for skin breakdown and infection. Assessment & Plan (07/29/2023 10:37 AM CDT): Chronic problem, A1c near goal at 7.2%; improved from 7.5% 03/28/23. -Will trial mounjaro 2.5mg weekly x1 month then increase to 5mg weekly. -will increase dinner Novolog from 10 units to 12 units. Please pay attention to dexcom readings once he starts that Mounjaro. The basaglar as well as the Novolog may need decreased doses. Current medications: Metformin 1000mg twice daily Jardiance 25mg daily. mounjaro 2.5mg weekly x1 month then increase to 5mg weekly. Novolog 12 units at breakfast, 10 units with lunch, dinner 12 units. Basaglar 10 units nightly UTD on labs. DM eye 10/2022 [facility]. 3rd request letter sent to get copy of report. Discussed walking in place while watching TV, walking during commercial breaks Currently in [facility] rehab 2x/wk. Discussed activity (has gym, walking probram & exercise classes available). Discussed cutting down on carb/dessert intake. Discussed the need to strive for regular exercise (30min most days) and diet (get at least 4-5 servings of fruit and veggies daily, avoid processed foods, increase lean protein intake and decrease carb portions as well as fruit juices, regular soda & desserts). Watch carbs and simple sugars. Check the feet daily for skin breakdown and infection. Assessment & Plan (03/28/2023 11:57 AM FIELD OPERATIONS COORDINATOR): Chronic problem, A1c near goal at 7.5%. improved from 7.7% 11/2022. Persistently high from 3p to HS. Will increase dinner insulin from 8 units to 10 units. Current medications: Metformin 1000mg twice daily Jardiance 25mg daily. Novolog 12 units at breakfast, 10 units with lunch, dinner 10 units. UTD on labs. DM eye 05/2022 [facility]. Reviewed weight gain & diet/intake since moving to assisted living facility. Has had increased carbs/desserts. Discussed activity (has gym, walking probram & exercise classes available). Discussed cutting down on carb/dessert intake. To ask for diabetic desserts. Discussed the need to strive for regular exercise (30min most days) and diet (get at least 4-5 servings of fruit and veggies daily, avoid processed foods, increase lean protein intake and decrease carb portions as well as fruit juices, regular soda & desserts). Watch carbs and simple sugars. Check the feet daily for skin breakdown and infection. Assessment & Plan (11/29/2022 2:14 PM CDT): Hba1c was Lab Results Component Value Date HGBA1C 7.7 11/29/2022 today, indicating adequate DM control Goal Hba1c and blood glucose explained Diet and exercise were advised Prevention and treatment of hyypoglcyemia were discussed with the patient Blood glucose monitoring : FSL Adjustment to medications: Continue current regimen with Lantus, Humalog , Jardiance and Metformin Assessment & Plan (08/30/2022 10:50 AM CDT): Chronic problem, not at goal & A1c rising. Will increase morning insulin. Current medications: Metformin 1000mg twice daily Jardiance 25mg daily. Novolog 12 units at breakfast, 10 units with lunch, dinner 8 units. Reviewed weight gain & diet/intake since moving to assisted living facility. Has had increased carbs/desserts. Discussed activity (has gym, walking probram & exercise classes available). Discussed cutting down on carb/dessert intake. To ask for diabetic desserts. Needs to scan Sandra more often, missing data. Discussed the need to strive for regular exercise (30min most days) and diet (get at least 4-5 servings of fruit and veggies daily, avoid processed foods, increase lean protein intake and decrease carb portions as well as fruit juices, regular soda & desserts). Watch carbs and simple sugars. Check the feet daily for skin breakdown and infection. Assessment & Plan (05/17/2022 10:59 AM FIELD OPERATIONS COORDINATOR): Chronic problem, A1c at goal but hyperglycemia noted during daytime. Continue metformin 1000mg daily & Jardiance 25mg daily. Will increase novolog to 10 units at breakfast & lunch, keep dinner at 8 units. Reviewed weight gain & diet/intake since moving to assisted living facility. Has had increased carbs/desserts. Discussed activity (has gym, walking probram & exercise classes available). Discussed cutting down on carb/dessert intake. Does well with his freestyle sandra, scans multiples times/day. Discussed the need to strive for regular exercise (30min most days) and diet (get at least 4-5 servings of fruit and veggies daily, avoid processed foods, increase lean protein intake and decrease carb portions as well as fruit juices, regular soda & desserts). Watch carbs and simple sugars. Check the feet daily for skin breakdown and infection. Assessment & Plan (03/22/2022 10:19 AM FIELD OPERATIONS COORDINATOR): Inadequate controlled, worsening Increase Novolog, 8 units ac For BG over 200, 10 units Continue Metformin and Jardiance BG monitoring with FSL Assessment & Plan (11/14/2021 10:08 AM CDT): Hba1c was Lab Results Component Value Date HGBA1C 7.5 11/14/2021 today, indicating Adequate DM control Goal Hba1c and blood glucose explained Diet and exercise were advised Prevention and treatment of hyypoglcyemia were discussed with the patient Blood glucose monitoring : FSL Adjustment to medications: Stay on Metformin and Jardiance When eating less than 1-2 carbs with meals and sugars are under 180, take only 2 units of Novolog When sugars are over 180, before meals , take the 3 units of Novolog For sugars are around 70, try to not over correct, some peanut butter cookies would be ok Assessment & Plan (07/20/2021 10:47 AM CDT): Chronic problem, at goal. No medication changes. Discussed at length diet and CGM questions his had. No medication changes. Assessment & Plan (04/27/2021 10:48 AM FIELD OPERATIONS COORDINATOR): Chronic problem, not at goal with overnight hypoglycemia. Lower Tresiba to 10 units. If still low overnight lower to 8 units. Call if persistent issues after this. Continue same NL doses. Also recommend upgrading to Sandra 2 if able to get it as it alarms for hypoglycemia and he is not aware of the lows that happen overnight. Update MA/Cr. Assessment & Plan (01/17/2021 12:57 PM CDT): Hba1c was Lab Results Component Value Date HGBA1C 6.1 01/17/2021 today, indicating adequate DM control with risk of hypoglycemia Goal Hba1c and blood glucose explained Diet and exercise , discussed Prevention and treatment of hyypoglcyemia discussed. Blood glucose monitoring : FSI Adjustment to medications: Target glucose 110-150 Lower Tresiba to 12 units Novolog, 4 units before breakfast and dinner For sugar under 100, have him eat first. For sugars over 180, give him 5 units Continue with Jardiance and metformin Assessment & Plan (10/28/2020 11:01 AM CDT): A1c 6.6. Reduce Tresiba to 14 units and reduce the Novolog to 5 units. Instructed to use sensor to track ac/pc BG to evaluate diet choices and portions. Check into Skin Tac wipes Assessment & Plan (06/30/2020 10:51 AM CDT): Hba1c was Lab Results Component Value Date HGBA1C 7.1 06/30/2020 today, indicating adequate DM control Goal blood sugars in the 120-150 range , with Hb1c under 7.0 % was explained 1800 calorie, consistent carb diet recommended. No more than 30-45 grams of carbs per meal recommended, as well as avoiding high concentrated sweet drinks . 25-45 min daily exercise, combining both aerobic and resistance exercise recommended. The need to monitor blood glucose before meals and bedtime was discussed. Prevention and treatment of hyypoglcyemia discussed. Continue current insulin regimen with Humalog and Tresiba and oral agents, Jardiance and Metformin Assessment & Plan (02/23/2020 12:22 PM FIELD OPERATIONS COORDINATOR): Hba1c was Lab Results Component Value Date HGBA1C 6.6 02/23/2020 today, indicating adequate DM control Goal blood sugars in the 120-150 range , with Hb1c under 7.0 % was explained 1800 calorie, consistent carb diet recommended. No more than 30-45 grams of carbs per meal recommended, as well as avoiding high concentrated sweet drinks . 25-45 min daily exercise, combining both aerobic and resistance exercise recommended. The need to monitor blood glucose before meals and bedtime was discussed. Prevention and treatment of hyypoglcyemia discussed. Lower Tresiba, 15 units Continue Novolog Start jardiance ( due to formulary _ Assessment & Plan (11/19/2019 10:11 AM CDT): Hba1c was Lab Results Component Value Date HGBA1C 7.3 11/19/2019 today, indicating suboptimal DM control 1800 calorie, consistent carb diet recommended. No more than 30-45 grams of carbs per meal recommended, as well as avoiding high concentrated sweet drinks . 25-45 min daily exercise, combining both aerobic and resistance exercise recommended. The need to monitor blood glucose before meals and bedtime was discussed. Prevention and treatment of hyypoglcyemia discussed. Insulin dose: Lower Tresiba, 20 units every day Novolog 8 unit wit BF and dinner Start Farxiga, 10 mg daily Assessment & Plan (07/31/2019 11:40 AM CDT): Continue with current medication. Main issue revolves around sensor issue. Will try for Sandra sensor again as patient was engaged in using it correctly many times a day and is now having to do 4+ finger sticks to confirm Dexcom reading due to multiple issues with Dexcom. They will be able to get Sandra in September but would prefer he has sooner. Assessment & Plan (05/07/2019 3:00 PM FIELD OPERATIONS COORDINATOR): Education provided on insertion, initiation, and calibration of sensor as appropriate. Is able to demonstrate ability to insert sensor into appropriate location and initiate session. Low alert set at 85 High alert set at 250 Instructed on how to use trend arrows in decision making with treatment plan. Follow up in 2 weeks so that trends can be evaluated and plan adjusted as indicated. Provided with contact information for 24 help line at [employer] for any questions. Face to face time = 70 minutes Greater than 50% of this visit was spent on counseling Counseling consisted of insertions and initiation of sensor, use of trend arrows Assessment & Plan (04/09/2019 3:48 PM FIELD OPERATIONS COORDINATOR): Hba1c was Lab Results Component Value Date HGBA1C 6.9 04/09/2019 today, indicating adequate DM control 1800 calorie, consistent carb diet recommended. No more than 30-45 grams of carbs per meal recommended, as well as avoiding high concentrated sweet drinks . 25-45 min daily exercise, combining both aerobic and resistance exercise recommended. The need to monitor blood glucose before meals and bedtime was discussed. Prevention and treatment of hyypoglcyemia discussed. Insulin dose: Continue current regimen Assessment & Plan (11/06/2018 12:15 PM CDT): Your Hba1c today was: Lab Results Component Value Date HGBA1C 6.6 % 11/06/2018 meaning a 3 month average sugar of : Your goal hba1c is under 7.0 to prevent residential diabetes complications ( eye , kidney and nerve damage ) . Your goal sugars are in the 90-130 range Exercise recommendations: It is recommended that you do daily aerobic ( walking, riding a bike, swimming ) and resistance exercises ( light weight lifting, resistance band stretching ) for at least 30 minutes , most days of the week. If you can not walk, chair exercises for 10-15 min a day would help tremendously. As little as 15-20 minutes exercise , in one or two sessions a day, is still very helpful to improve your diabetes control . Diet recommendations: Eat small portion meals, trying not to consume more than 1800 calories a day . Try to eat not more than than 2 servings of carbs ( starches ) wiith your meals. Avoid soft drinks, including regular sodas , fruit juices and sweetened tea. Drink water instead. Eat plenty of green and leafy vegetables, including salads. Medications: Take your medications regularly. Setting phone alarms can help . Keep your medication on the kitchen dinner table, by the bedside table or by the sink where they are visible to you. If you are taking insulin : the insulin that you are currently using does not need to be refrigerated. Keep it where you can see it . Monitor your sugar levels with finger sticks regularly and keep a log sheet or book. Bring your sugar meter and /or a log book or log sheet to every office visit. Lower Tresiba to 25 unit Do not take any more than 8 units of Novolog at a time. Will try Sandra CGMS Assessment & Plan (06/24/2018 11:33 AM CDT): Hba1c was Lab Results Component Value Date HGBA1C 6.4 06/24/2018 today, indicating adequate DM control 1800 calorie, consistent carb diet recommended 25-45 min daily exercise, combining both aerobic and resistance exercise recommended. The need to monitor blood glucose before meals and bedtime was discussed. Dose of basal and prandial insulin adjusted as follows: lower Tresiba to 28 units Prevention and treatment of hyypoglcyemia discussed. Assessment & Plan (12/19/2017 3:19 PM CDT): Hba1c was Lab Results Component Value Date HGBA1C 6.4 12/19/2017 today, indicating adequate DM control 1800 calorie, consistent carb diet recommended 30 min daily exercise, combining both aerobic and resistance exercise is strongly recommended and needed as part of diabetes management plan. The need to monitor blood glucose before meals and bedtime was discussed. Take prandial insulin before meals based on carb intake and blood glucose readings. Prevention and treatment of hyypoglcyemia discussed. 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 Your goal sugars are in the 90-130 range Daily aerobic ( walking, riding a bike, swimming ) and resistance exercises ( light weight lifting, resistance band stretching ) for at least 30 minutes is recommended If you can not walk, chair exercises is very acceptable. As little as 15-20 minutes exercise , in one or two sessions a day, is still very helpful and will help to improve your diabetes control . Eat small portion meals, no more than 1800 calories Diet Try to eat not more than than 2-3 servings of carbs ( starches ) wiith your meals. Avoid soft drinks, including regular sodas , fruit juices and sweetened tea. Drink water instead. Eat plenty of green and leafy vegetables, including salads. Take your medications regularly,including your insulin injections. Monitor your sugar levels with finger sticks regularly and keep a log sheet or book. Bring your sugar meter and /or a log book or log sheet to every office visit. Lower Tresiba to 28 units Continue Novolog, For very active days , cut Novolog to 1/2 the dose. Assessment & Plan (08/08/2017 9:51 AM CDT): Your Hba1c today was: Lab Results Component Value Date HGBA1C 7.2 08/08/2017 meaning a 3 month average sugar of : 154 Your goal hba1c is under 7.0 to prevent residential diabetes complications ( eye , kidney and nerve damage ) . Your goal sugars are in the 90-130 range Daily aerobic ( walking, riding a bike, swimming ) and resistance exercises ( light weight lifting, resistance band stretching ) for at least 30 minutes is recommended If you can not walk, chair exercises is very acceptable. As little as 15-20 minutes exercise , in one or two sessions a day, is still very helpful and will help to improve your diabetes control . Eat small portion meals, no more than 1800 calories Diet Try to eat not more than than 2-3 servings of carbs ( starches ) wiith your meals. Avoid soft drinks, including regular sodas , fruit juices and sweetened tea. Drink water instead. Eat plenty of green and leafy vegetables, including salads. Take your medications regularly,including your insulin injections. Monitor your sugar levels with finger sticks regularly and keep a log sheet or book. Bring your sugar meter and /or a log book or log sheet to every office visit. Stay on Tresiba, 32 units at bedtime Novolog, 8 units before meals, for sugars over 200, take 9 units Stay on metformin, 1000 mg twice a day Fax log sheets monthly. Assessment & Plan (03/07/2017 10:39 AM FIELD OPERATIONS COORDINATOR): No change to medication today. Elevated numbers are more d/t diet. Concern for hypoglycemia discussed. BG goals reviewed. Continue to send in Bg. Will adjust as indicated. Assessment & Plan (12/18/2016 10:59 AM CDT): Hba1c was 6.1 today, indicating adequate DM control with risk of hypoglycemia 1800 calorie, consistent carb diet recommended 30 min daily exercise, combining both aerobic and resistance exercise is strongly recommended and needed as part of diabetes management plan. The need to monitor blood glucose before meals and bedtime was discussed. Lower Tresiba to 30 units Take Humalog, 6 units before each meal For sugars over 150, take 7 units Over 200, take 8 units Over 250, take 10 units Over 300, take 12 units Fax log sheets weekly Carotid bruit 10/18/2016 Atherosclerosis of [place] artery of extremity Malignant neoplasm of prostate 04/27/2015 Overview (06/28/2017): Description: dx 04/02----[facility] 3+3 Hx of CABG 02/14/2015 Overview (06/21/2016): Hx of CABG Coronary arteriosclerosis in [place] artery 01/19 Overview (06/21/2016): Coronary arteriosclerosis in [place] artery Assessment & Plan (02/22/2017 3:45 PM FIELD OPERATIONS COORDINATOR): 2012 NSTEMI and CABG Normal LV fxn Doing well w/o angina. Other and unspecified hyperlipidemia 10/16/2011 Overview (01/23/2021): Hypercholesterolemia Converted unresolved ICD9, potential mismatch. Assessment & Plan (03/07/2017 10:37 AM FIELD OPERATIONS COORDINATOR): At goal on statin. Continue follow up with cardiology. Assessment & Plan (12/18/2016 11:01 AM CDT): Goal of treatment , LDL cholesterol less than 100 ( less than 70 in patients with history of heart attacks and / or strokes ) NonHDL cholesterol goal less than 130 ( less than 100 in patients with history of heart attacks and / or strokes ) Continue statin therapy Lower GI bleed LEENA (obstructive sleep apnea) Current Treatment and Therapy Plans No current plan information found. Past Treatment and Therapy Plans No past plan information found. Lifetime Dose Tracking * Chemical Lifetime Dose Automatic Entry Manual Entr y Fluoro Time 39.8 minutes 21.5 minutes 18.3 minutes Air kerma at the reference point (Ka,r) 1,131 mGy 5 25 mGy 606 mGy DLP 3,909 mGycm 3,909 mGycm 0 mGycm Resolved Problems Problem Noted Date Diagnosed Date Resolved Date Tooth abscess 11/27/2020 05/16/2022 Essential hypertension 03/07/201705/16 Assessment & Plan (03/07/2017 10:38 AM FIELD OPERATIONS COORDINATOR): Controlled on current medications. Carotid bruit 03/23/2016 08/28/2017 Overview (06/21/2016): Bilateral carotid bruits Atherosclerosis of coronary artery 11/24/2012 08/28/2017 Diabetes mellitus 11/24/2012 05/16/2022 Pre-operative respiratory examination 05/16/2022
--- OUTSIDE RECORDS SUMMARY | 2024-11-12 11:21 | XMS_ITS | Clinical Summary ---
Author Organization [facility] Physician Office Building 1 Address [address] [place] [address] Care Team Providers Care Power Plant Installer Name Role Phone Shefali Sanchez MD Primary Care Provider [phone] Allergies Active Allergy Reactions Criticality Noted Date Comments Semaglutide Nausea And Vomiting 01/01/2024 Medications aspirin 81 mg tablet take 1 tablet (81MG) by oral route every day 0 08/13/19 13 Active ergocalciferol (VITAMIN D2) 50,000 unit capsule take 1 capsule by oral route every week 0 0 03/23/19 17 Active albuterol HFA (PROVENTIL HFA,VENTOLIN HFA) 90 mcg/actuation inhaler Inhale 2 puffs every 6 (six) hours as needed for wheezing Active ACCU-CHEK DEANNA PLUS METER miscIndication s:Type 2 diabetes mellitus with hyperglycemia, with long-term current use of insulin (HCC) USE 1 STRIP IN METER TO TEST GLUCOSE BEFORE MEALS AND AT BEDTIME DIRECTED 1 each 02/27/20 18 Active lancets 33 gauge miscIndication s:Type 2 diabetes mellitus with hyperglycemia, with long-term current use of insulin (HCC) Use to test 4 times daily with meals and bedtime ( ACCU-CHEK LANCETS) 400 each 3 03/24/19 19 Active cetirizine (ZyrTEC) 10 mg tablet Take 1 tablet (10 mg total) by mouth daily Active 1ST TIER UNIFINE PENTIPS PLUS 31 gauge x 16 needleIndicati ons:Type 2 diabetes mellitus with hyperglycemia, with long-term current use of insulin ([facility]) USE ONE NEEDLE INTO THE SKIN FOUR TIMES A DAY 400 each 3 01/22/20 19 Active Accu-Chek Deanna Plus test strp stripIndicatio ns:Type 2 diabetes mellitus with hyperglycemia, with long-term current use of insulin ([facility]) USE 1 STRIP IN METER TO TEST GLUCOSE BEFORE MEALS AND AT BEDTIME DIRECTED 400 each 05/07/19 20 Active metFORMIN (GLUCOPHAGE) 1,000 mg tabletIndicati ons:Type 2 diabetes mellitus with hyperglycemia, with long-term current use of insulin ([facility]) TAKE ONE TABLET BY MOUTH TWICE A DAY WITH MEALS 180 tablet 1 08/26/19 20 Active metoprolol tartrate (LOPRESSOR) 25 mg immediate release tablet TAKE ONE TABLET BY MOUTH TWICE A DAY 180 tablet 12/25/19 20 Active atorvastatin (LIPITOR) 40 mg tablet TAKE ONE TABLET BY MOUTH ONCE DAILY 90 tablet 3 01/10/20 20 Active empagliflozin (JARDIANCE) 25 mg tabletIndicati ons:type 2 diabetes mellitus Take 1 tablet (25 mg total) by mouth daily 30 tablet 6 02/23/20 20 Active cilostazoL (PLETAL) 100 mg tablet Take 0.5 tablets (50 mg total) by mouth 2 (two) times a day 180 tablet 3 08/20/19 21 Active lisinopriL (PRINIVIL,ZEST RIL) 40 mg tabletIndicati ons:Hypotensio n due to drugs Take 0.5 tablets (20 mg total) by mouth daily 90 tablet 3 12/08/19 21 Active Eliquis 5 mg tablet TAKE 1 TABLET BY MOUTH EVERY 12 HOURS 60 tablet 3 11/18/19 22 Active insulin aspart (NovoLOG) 100 unit/mL (3 mL) pen for injection Inject 8-10 Units under the skin 3 (three) times a day before meals 15 mL 6 03/22/19 23 Active Additional Information Patient taking differently:8-10 Units subcutaneous 3 times daily before meals,12 units in the am, 10 units in the pm and 8 units in the evening, Reported on 11/02/2024 flash glucose sensor (FreeStyle Avi 2 Sensor) kitIndications :Type 2 diabetes mellitus with hyperglycemia, with long-term current use of insulin ([facility]) Change sensor q 2 weeks 6 kit 3 03/22/19 23 Active finasteride (PROSCAR) 5 mg tablet Take 1 tablet (5 mg total) by mouth daily 90 tablet 3 04/25/19 23 Active budesonide-gly copyr-formoter ol 160-9-4.8 mcg/actuation HFA aerosol inhaler INHALE 2 PUFFS INHALATION TWICE A DAY DIRECTED (CLEAN INHALER FOLLOWED BY 2 PRIMING PUFFS ONCE WEEKLY) 05/28/19 23 Active cyanocobalamin (Vitamin B-12) 1,000 mcg tablet Take 1 tablet (1,000 mcg total) by mouth daily 01/02/20 24 Active memantine (NAMENDA) 5 mg tablet 04/01/19 25 Active tamsulosin (FLOMAX) 0.4 mg extended release capsule Take 1 capsule (0.4 mg total) by mouth home health care physician before breakfast 05/30/19 25 Active dulaglutide (TRULICITY) 1.5 mg/0.5 mL pen injector Inject 0.5 mL (1.5 mg total) under the skin once a week Active clopidogreL (PLAVIX) 75 mg tablet TAKE ONE TABLET BY MOUTH ONCE DAILY 90 tablet 3 01/03/20 20 021 Discontinued dulaglutide (TRULICITY) 0.75 mg/0.5 mL pen injector Inject under the skin 03/24/19 25 025 Discontinued nitrofurantoin monohydrate (MACROBID) 100 mg capsuleIndicat ions:Urinary Tract/Genitour inary Infection Take 1 capsule (100 mg total) by mouth 2 (two) times a day for 7 days 14 capsule 11/03/19 25 025 Active Problems Problem Noted Date Diagnosed Date Class 1 obesity due to exces s calories with serious comorbidity and body mass index (BMI) of 30.0 to 30.9 in adult 05/17/2022 Assessment & Plan (05/17/2022 10:40 AM SUSTAINABILITY PROJECT COORDINATOR): Discussed healthy diet and importance of regular physical activity (20- 30min/day, 150min/wk). Moved into [place] 02/2022 & has gained 11# since that [...] (09/03/2017): Added automatically from request for surgery [id number] Assessment & Plan (08/07/2021 2:49 PM CDT): They to discuss with placement specialist and then schedule Aortic valve stenosis, nonrheumatic 08/28/2017 Hyperlipidemia associated with type 2 diabetes meg benavides 08/08/2017 Assessment & Plan (11/02/2024 10:25 AM CDT): Chronic problem, well controlled on current Atorvastatin 40mg. Last lipid panel: 08/04/24 LDL=57, TG=89. Assessment & Plan (05/05/2024 10:44 AM SUSTAINABILITY PROJECT COORDINATOR): Chronic problem, well controlled on current Atorvastatin 40mg. Last lipid panel: 10/09/23 LDL=63, TG=81. Assessment & Plan (10/25/2023 10:44 AM CDT): Chronic problem, well controlled on current Atorvastatin 40mg. Last lipid panel: 10/09/23 LDL=63, TG=81. Assessment & Plan (07/29/2023 10:18 AM CDT): Chronic problem, well controlled on current Atorvastatin 40mg. Last lipid panel: 09/19/22 LDL=46, ZP=193. Assessment & Plan (03/28/2023 11:31 AM SUSTAINABILITY PROJECT COORDINATOR): Chronic problem, well controlled on current Atorvastatin 40mg. Last lipid panel: 09/19/22 LDL=46, XZ=475. Assessment & Plan (11/29/2022 2:14 PM CDT): Chronic, well-controlled Continue statin therapy with atorvastatin Assessment & Plan (08/30/2022 10:15 AM CDT): Chronic problem, well controlled on current Atorvastatin 40mg. Last lipid panel: 06/28/21 LDL=47, DI=968 Will update labs today. Verified phone #/address to contact re: results. Assessment & Plan (05/17/2022 10:59 AM SUSTAINABILITY PROJECT COORDINATOR): Chronic problem, well controlled on current Atorvastatin 40mg. Last lipid panel: 06/28/21 LDL=47, HM=620 No changes at this time. Assessment & Plan (07/20/2021 10:47 AM CDT): Chronic problem. On statin therapy, no changes. [facility] Assessment & Plan (04/27/2021 10:15 AM SUSTAINABILITY PROJECT COORDINATOR): Chronic problem. On statin therapy, no [...] Atorvastatin Assessment & Plan (02/23/2020 12:23 PM SUSTAINABILITY PROJECT COORDINATOR): Goal of treatment , LDL cholesterol [...] panel Assessment & Plan (04/09/2019 3:49 PM SUSTAINABILITY PROJECT COORDINATOR): Goal of treatment , LDL cholesterol [...] confusion). Assessment & Plan (05/05/2024 10:44 AM SUSTAINABILITY PROJECT COORDINATOR): Chronic problem, well controlled on current lisinopril 20mg daily & metoprolol tartrate 25mg bid. Assessment & Plan (10/25/2023 10:44 AM CDT): Chronic problem, well controlled on current lisinopril 20mg daily & metoprolol tartrate 25mg bid. Assessment & Plan (07/29/2023 10:18 AM CDT): Chronic problem, well controlled on current lisinopril 20mg daily & metoprolol tartrate 25mg bid. Assessment & Plan (03/28/2023 11:31 AM SUSTAINABILITY PROJECT COORDINATOR): Chronic problem, well controlled on current [...] results. Assessment & Plan (05/17/2022 10:58 AM SUSTAINABILITY PROJECT COORDINATOR): Chronic problem, well controlled on current regimen. currently taking lisinopril 20mg daily & metoprolol tartrate 25mg bid. No changes at this time. Assessment & Plan (03/22/2022 10:20 AM SUSTAINABILITY PROJECT COORDINATOR): Chronic, well controlled Continue Lisinopril Assessment & Plan (11/14/2021 10:08 AM CDT): Chronic, well controlled Importance of low salt diet and exercise were discussed Continue current meds Assessment & Plan (07/20/2021 10:47 AM CDT): Controlled on current medications, no changes. Assessment & Plan (04/27/2021 10:15 AM SUSTAINABILITY PROJECT COORDINATOR): Controlled on current medications, no changes. [...] Lisinopril Assessment & Plan (02/23/2020 12:23 PM SUSTAINABILITY PROJECT COORDINATOR): Goal blood pressure is less than [...] Lisinopril Assessment & Plan (04/09/2019 3:49 PM SUSTAINABILITY PROJECT COORDINATOR): Goal blood pressure is less than [...] yr. 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 Needs FU pacer check. PVD (peripheral vascular disease) 02/22/2017 Assessment & Plan (02/22/2017 3:47 PM SUSTAINABILITY PROJECT COORDINATOR): Right LAZARUS 0.6, left LAZARUS 0.8. [...] on labs. UTD on DM eye ([facility]23 [facility] Discussed walking in place while watching TV, [...] and simple sugars. Check blood sugars: Freestyle avi 3+. Check the feet daily for skin breakdown and infection. Assessment & Plan (05/05/2024 11:13 AM SUSTAINABILITY PROJECT COORDINATOR): Chronic problem, A1c improved slightly from 7.6% 10/25/23 to now 7.4%. Will talk to [place] doctor about moving up the trulicity from [...] update MA/Cr today. Verified that he uses [employer]. Aware to check results/results letter in [place]. Will contact by phone if needed. UTD on DM eye (11/30/22 [place] [facility] Was seen 12/03/23 at [place] again. Letter sent to get copy Discussed [...] and simple sugars. Check blood sugars: Freestyle avi 3. Check the feet daily for skin breakdown and infection. Assessment & Plan (10/25/2023 11:14 AM CDT): Chronic problem, A1c worsened from 7.2% 07/29/23 to now 7.6%. was unable to get Mounjaro after last appt. Printed out scripts for dtr to take to [place] at next appt. Instructed to watch blood [...] update CMP today. Verified that he uses [employer]. Aware to check results/results letter in [place]. Will contact by phone if needed. UTD on DM eye (11/30/22 [place] [facility] Scheduled 12/03/23 at [place] again. Will send letter after that appt [...] and simple sugars. Check blood sugars: Freestyle avi 3. Check the feet daily for skin [...] on labs. DM eye 10/2022 [facility]. 3rd request letter sent to get copy of report. Discussed walking in place while watching TV, walking during commercial breaks Currently in [facility] 2x/wk. Discussed activity (has [...] infection. Assessment & Plan (03/28/2023 11:57 AM SUSTAINABILITY PROJECT COORDINATOR): Chronic problem, A1c near goal at 7.5%. improved from 7.7% 11/2022. Persistently high from 3p to HS. Will increase dinner insulin from 8 units to 10 units. Current medications: Metformin 1000mg twice daily Jardiance 25mg daily. Novolog 12 units at breakfast, 10 units with lunch, dinner 10 units. UTD on labs. DM eye 05/2022 [facility]. Reviewed weight gain & diet/intake since moving [...] ask for diabetic desserts. Needs to scan Avi more often, missing data. Discussed the need [...] infection. Assessment & Plan (05/17/2022 10:59 AM SUSTAINABILITY PROJECT COORDINATOR): Chronic problem, A1c at goal but [...] on carb/dessert intake. Does well with his [employer] avi, scans multiples times/day. Discussed the need to [...] infection. Assessment & Plan (03/22/2022 10:19 AM SUSTAINABILITY PROJECT COORDINATOR): Inadequate controlled, worsening Increase Novolog, 8 units ac For BG over 200, 10 units Continue Metformin and Jardiance BG monitoring with [facility] Assessment & Plan (11/14/2021 10:08 AM CDT): [...] changes. Assessment & Plan (04/27/2021 10:48 AM SUSTAINABILITY PROJECT COORDINATOR): Chronic problem, not at goal with overnight hypoglycemia. Lower Tresiba to 10 units. If still low overnight lower to 8 units. Call if persistent issues after this. Continue same NL doses. Also recommend upgrading to Avi 2 if able to get it as [...] Metformin Assessment & Plan (02/23/2020 12:22 PM SUSTAINABILITY PROJECT COORDINATOR): Hba1c was Lab Results Component Value [...] revolves around sensor issue. Will try for Avi sensor again as patient was engaged in using it correctly many times a day and is now having to do 4+ finger sticks to confirm Dexcom reading due to multiple issues with Dexcom. They will be able to get Avi in September but would prefer he has sooner. Assessment & Plan (05/07/2019 3:00 PM SUSTAINABILITY PROJECT COORDINATOR): Education provided on insertion, initiation, and [...] contact information for 24 help line at [facility] for any questions. Face to face time = 70 minutes Greater than 50% of this visit was spent on counseling Counseling consisted of insertions and initiation of sensor, use of trend arrows Assessment & Plan (04/09/2019 3:48 PM SUSTAINABILITY PROJECT COORDINATOR): Hba1c was Lab Results Component Value [...] goal hba1c is under 7.0 to prevent mcfp diabetes complications ( eye , kidney and [...] of Novolog at a time. Will try Avi CGMS Assessment & Plan (06/24/2018 11:33 AM [...] goal hba1c is under 7.0 to prevent mcfp diabetes complications ( eye , kidney and [...] goal hba1c is under 7.0 to prevent assistant terminal manager diabetes complications ( eye , kidney and [...] monthly. Assessment & Plan (03/07/2017 10:39 AM SUSTAINABILITY PROJECT COORDINATOR): No change to medication today. 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 Other and unspecified hyperlipidemia 10/16/2011 Overview (01/23/2021): Hypercholesterolemia Converted unresolved ICD9, potential mismatch. Assessment & Plan (03/07/2017 10:37 AM SUSTAINABILITY PROJECT COORDINATOR): At goal on statin. Continue follow [...] Lower GI bleed LEENA (obstructive sleep apnea) Resolved Problems Problem Noted Date Diagnosed Date Resolved Date Tooth abscess 11/27/2020 05/16/2022 Essential hypertension 03/07/201705/16 Assessment & Plan (03/07/2017 10:38 AM SUSTAINABILITY PROJECT COORDINATOR): Controlled on current medications. Carotid bruit 03/23/2016 08/28/2017 Overview (06/21/2016): Bilateral carotid bruits Atherosclerosis of coronary artery 11/24/2012 08/28/2017 Diabetes mellitus 11/24/2012 05/16/2022 Pre-operative respiratory examination 05/16/2022 Encounters Date Type Department Care Team Description 11/02/2024 10:40 AM CDT Lab [address] [address] Confusion; Increased urinary frequency 11/02/2024 10:00 AM CDT Office Visit [facility] Diabetes and Endocrinology [address] [place] [phone] Sade Loza NP Type 2 diabetes mellitus with hyperglycemia, with long-term current use of insulin (HCC) (Primary Dx); Hypertension associated with diabetes (HCC); Hyperlipidemia associated with type 2 diabetes mellitus (HCC); Confusion; Increased urinary frequency 11/02/2024 Results Follow-Up [facility] Diabetes and Endocrinology [address] [place] [phone] Sade Loza, JADA Urinalysis reflex to microscopic and culture Urine, Urinalysis, microscopic only, Urine culture Urine 11/02/2024 Telephone [facility] Medical [facility] Cardiology [address] [place] [address] Trevor Rajput MD 10/19/2024 Telephone [facility] Surgery [address] [place] [address] [address] [place] [address] Dayana John RMA 10/19/2024 Telephone [facility] Surgery [address] [place] [address] [address] [place] [address] Dayana John RMA 10/19/[address] [facility] Surgery [address] [place] [address] [address] [place] [id number] Dayana John RMA 10/07/2024 1:36 PM CDT - 10/07/2024 11:59 PM CDT Hospital Encounter [facility] [address] [place] [address] Other nonspecific abnormal finding of lung field Discharge Disposition: Discharge to home or self care 10/06/2024 Telephone [facility] [address] [place] [address] Abdullahi Scott 09/02/2024 9:30 AM CDT Ancillary Procedure [facility] Medical [facility] Cardiology [address] [place] [phone] Pacemaker (Primary Dx); Second degree AV block; Paroxysmal atrial fibrillation (HCC) 09/02/2024 Orders Only [facility] Cardiology [address] [address] Trevor Rajput MD Pacemaker (Primary Dx); AV block, 2nd degree; Bradycardia; Paroxysmal atrial fibrillation (HCC) 08/25/2024 Telephone [facility] Diabetes and Endocrinology [address] [place] [address] Sade Loza, CONTACT CENTER DIRECTOR BG Logs 08/12/2024 Orders Only [facility] Diabetes and Endocrinology [address] [place] [phone] Provider, MD Osmel from Last 3 Months Surgical History Surgery Date Site/Laterality Comments COLONOSCOPY 09/15/2012 - 10/15/2012 TONSILLECTOMY/ADENOIDECTOMY UVULECTOMY CARDIAC CATHETERIZATION ANGIO SELECTIVE INTERNAL CAR OTID RIGHT 11/18/2020 Right CORONARY ARTERY BYPASS GRAFT 03/18/2012 - 03/17/2013 4 vessel CARDIAC PACEMAKER PLACEMENT 11/16/2016 - 12/15/2016 Left [employer] Medical History Medical History Date Comments Colon polyp Hypertension Hyperlipidemia Myocardial infarction (HCC) 2012 CHF (congestive heart failure) (HCC) Asthma Type 2 diabetes mellitus PAD (peripheral artery disease) HLD (hyperlipidemia) Elevated PSA COPD (chronic obstructive pulmonary disease) LEENA (obstructive sleep apnea) CP AP Cataract Stroke (HCC) Family History Medical History Relation Name Comments Diabetes Father Heart attack Father Myocardial Infa rction; Heart disease Father Diabetes Mother Heart disease Mother Relation Name Status Comments Father Mother Social History Tobacco Use Types Packs/Day Years Used Date Smoking Tobacco: Former Cigarettes Q uit: 02/20/2006 Smokeless Tobacco: Former Tobacco Cessation:Counseling Given: Not Answered Alcohol Use Standard Drinks/Week Comments No 1 (1 standard drink = 0.6 oz pur e alcohol) annually AUDIT-C Answer Date Recorded Q1: How often do you have a drink containing alc ohol? Never 12/29/2020 Average Number of Drinks Not on file 021 Q3: How often do you have si x or more drinks on one occasion? Never 12/29/2020 PHQ-2 Answer Date Recorded PHQ-2 Total Score 0 09/25/2023 PHQ-9 Answer Date Recorded PHQ-9 Total Score 1 09/25/2023 Sex and Gender Information Value Date Recorded Sex Assigned at Not on file Legal Sex Male 2:51 AM SUSTAINABILITY PROJECT COORDINATOR Gender Identity Not on file Sexual Orientation Not on file Occupation Industry Job Start Date Job End Date retired Not on file Not on file Not on file Obstetrics History Last Filed Vital Signs Vital Sign Reading Time Taken Comments Blood Pressure 82/36 11/02/2024 10:28 AM CDT Pulse 69 11/02/2024 9:57 AM CDT Temperature 36.5 C (97.7 F) 12/03/2021 5:55 PM CDT Respiratory Rate 16 11/02/2024 9:57 AM CDT Oxygen Saturation 93% 06/15/2024 10:08 AM CDT Inhaled Oxygen Concentration - - Weight 74.9 kg (165 lb 3.2 oz) 11/02/2024 9:57 A M CDT Height 160 cm (5' 3) 11/02/2024 9:57 AM CDT Body Mass Index 29.26 11/02/2024 9:57 AM CDT Plan of Treatment Health Maintenance Due Date Last Done Comments Hepatitis C Screening 1950 DTaP/Tdap/Td Vaccine (1 - Tdap) 05/30/1959 Hepatitis B Screening 1966 Zoster Vaccine (1 of 2) 1998 Abdominal Aortic Aneurysm (A AA) Screen 2013 Well Visit 65+ 2013 Fall Risk Assessment 01/23/2022 01/23/2021, 09/03/20 21 Depression Screening 09/24/2024 09/25/2023, 09/25/2023, 06/07/2023, Additional history exists Influenza Vaccine (#1) 2024 12/20/2017 Dilated Eye Exam 05/05/2025 05/05/2024, , 09/09/2020, Additional history exists Hemoglobin A1C 05/05/2025 11/02/2024, 07/17, 05/05/2024, Additional history exists Albumin Creatinine Ratio, Urine 08/04/2025 08/04/2024, 05/05/2024, 08/30/2022, Additional history exists Lipid Panel 08/04/2025 08/04/2024, 05/0 07/2024, 10/09/2023, Additional history exists eGFR 08/04/2025 08/04/2024, 05/0 07/2024, 10/25/2023, Additional history exists Foot Exam 11/02/2025 11/02/2024, 07/16, 05/17/2022, Additional history exists Pneumococcal vaccine 65+ Completed 017, 07/28/2015, 02/18/2015 Colon Cancer Screening-CT Colonography Discontinued 09/24/2017 Colon Cancer Screening-Colonoscopy Discontinued 09/24/2017 Colon Cancer Screening-DNA Stool Discontinued 09/25/19 18 Colon Cancer Screening-FIT Discontinued 09/24/2017 Colon Cancer Screening-FOBT Discontinued 09/24/2017 Colon Cancer Screening-Sigmoidoscopy Discontinued 09/24/2017 Colorectal Cancer Screening Discontinued Medical Devices Implanted Type Area Patient Registration Representative Device Identifier Shelf Expiration Date Model / Serial / Lot Med[employer]onic Lead (Ra)-11/29/2016 Implanted:2016 by Renetta Barry MD (Quantity not on file) Lead Heart [employer] Cardiac Rhythm Mgmt 5076-45 CAPSUREFIX NOVUS / [id number] / [employer] Lead (Rv)-11/29/2016 Implanted:2016 by Renetta Barry MD (Quantity not on file) Lead Heart [employer] Cardiac Rhythm Mgmt 5076-52 CAPSUREFIX NOVUS / [id number] / Medtronic Pacemaker ([id number])-11/30/19 17 Implanted:2016 by Renetta Barry MD (Quantity not on file) Pacemaker Chest Medtronic Second degree AVB, Bradycardia [id number] / [id number] / [employer] [id number] Valve Heart 26mm Ethel 3 Transcatheter - [id number] - [id number] Implanted:Qty: 1 on 08/18/2020 by Kodak Davidson MD at [facility] Prosthetic Valve [employer] 11/22/2021 [id number] / [id number] / Daig Mónica [id number] Device Closure Angio-Seal Vip Bondek-Plus Polyglyd L70 Cm Od6 Fr Odsec.035 In Vascular - [id number] Implanted:Qty: 1 on 08/18/2020 by Kodak Davidson MD at [facility] [employer] [facility] 05/15/2021 [id number] / / [id number] Procedures Procedure Name Priority Date/Time Associated Diagnosis Comments URINALYSIS, MICROSCOPIC ONLY Routine 11/02/2024 10:52 AM CDT Confusion Increased urinary frequency URINE CULTURE Routine 11/02/2024 10:52 AM CDT URINALYSIS AND REFLEX TO MICROSCOPIC AND CULTURE Routine 11/02/2024 10:52 AM CDT Confusion Increased urinary frequency POCT GLUCOSE Routine 11/02/2024 10:00 AM CDT Type 2 diabetes mellitus with hyperglycemia, with long-term current use of insulin (HCC) POCT HEMOGLOBIN A1C Routine 11/02/2024 1 0:00 AM CDT Type 2 diabetes mellitus with hyperglycemia, with long-term current use of insulin (HCC) CT CHEST WO CONTRAST Schedule Routine, Read Routine (OP Routine) 10/07/2024 2:08 PM CDT Other nonspecific abnormal finding of lung field DEVICE CHECK - IN OFFICE Routine 09/02/2024 9:39 AM CDT Second degree AV block Paroxysmal atrial fibrillation (HCC) COMPREHENSIVE METABOLIC PANEL Routine 08/04/2024 11:59 AM CDT LIPID PANEL Routine 08/04/2024 11:59 AM CDT ALBUMIN CREATININE RATIO, URINE Routine 08/04/2024 11:59 AM CDT HM DIABETES EYE EXAM Routine 05/05/2024 7:33 AM SUSTAINABILITY PROJECT COORDINATOR COLONOSCOPY 09/24/2017 7:34 AM CDT from Last 3 Months or Most Recently Relevant to Health Maintenance Results * (ABNORMAL) Urinalysis reflex to microscopic and culture Urine (11/02/2024 10:52 AM CDT) Color, ur Yellow Yellow Clarity, ur Cloudy(A) Clear [facility] Specific gravity, ur 1.021 1.003 - 1.030 [facility] pH, urine 6.0 [facility] Comment: Interpretive Data U rine pH is affected by diet, medications, systemic acid-base disturbances, and renal tubular function. pH may affect urinary stone formation. For example, urine pH below 6.0 may help reduce the tendency for calcium phosphate stones and pH greater than 6.0 may reduce the tendency for uric acid stone formation. Source: [facility] Current Interpretive Data was last revised on 2017 Protein, ur ql 1+(A) Negative [facility] Glucose, ur ql 4+(A) Negative [facility] Ketones, ur Negative Negative [facility] Bilirubin, ur Negative Negative [facility] Blood, ur Negative Negative [facility] Urobilinogen, ur <2.0 <2.0 mg/dL [facility] Nitrite, ur Negative Negative [facility] Leukocyte esterase, ur 3+(A) Negative [facility] UA reflex comment Reflex to microscopic UA will be performed. [facility] Urine 11/02/2024 10:5 2 AM CDT 11/02/2024 1:34 PM CDT us Sade Loza NP LAB MICROBIOLOGY - GENERA L ORDERABLES Final Result [facility] [address] [facility] Department [place] [address] * (ABNORMAL) Urinalysis, microscopic only (11/02/2024 10:52 AM CDT) WBC, ur 21-50(A) 0 - 5 /HPF RBC, ur 0-2 0 - 2 /HPF [facility] Epithelial cells, squamous, ur 1-5 0 - 5 /HPF [facility] Mucous, ur Present(A) [facility] Hyaline casts, ur 21-50(A) 0 - 10 /LPF [facility] Granular casts, ur 21-50(A) 0 - 0 /LPF [facility] Culture Reflex Comment Reflex to urine culture will be performed. [facility] Urine 11/02/2024 10:5 2 AM CDT 11/02/2024 1:34 PM CDT us Sade Loza CONTACT CENTER DIRECTOR LAB URINE ORDERABLES Shazia l Result Performing Organization Address [facility] de Phone Number [address] [place] [address] * Urine culture Urine (11/02/2024 10:52 AM CDT) Report Final Report: Less than 100,000 colonies/mL (clinically insignificant growth based on current clinical standards) Comment:Testing performed by : [facility], [address] [place]., [address] Organism (CLINICALLY INSIGNIFICANT GROWTH [facility] Urine 11/02/2024 10:5 2 AM CDT 11/02/2024 3:48 PM CDT Narrative [facility] - 11/03/2024 4:46 PM CDT Urine culture reflexed based upon urinalysis results. Testing performed by [facility] ([phone]) us Sade Loza CONTACT CENTER DIRECTOR LAB MICROBIOLOGY - GENERA L ORDERABLES Final Result Performing Organization Address [facility] Co de Phone Number [address] [place] [address] * (ABNORMAL) POCT hemoglobin A1c (11/02/2024 10:00 AM CDT) Hemoglobin A1C, POC 6.9(A) 4.0 - 5.6 % Capillary blood 11/02/2024 1 0:00 AM CDT us Sadesuzi Loza CONTACT CENTER DIRECTOR POINT OF CARE TEST ORDERA BLES Final Result * (ABNORMAL) POCT glucose (11/02/2024 10:00 AM CDT) Glucose Blood, POC 106 Normal Fasting 70 - 100, Random <200 mg/dL Comment:PPG 2 Hrs Blood 11/02/2024 10:0 0 AM CDT us Sadesuzi Loza CONTACT CENTER DIRECTOR POINT OF CARE TEST ORDERA BLES Final Result * CT Chest WO Contrast (10/07/2024 2:08 PM CDT) Anatomical Region Laterality Modality Body N/A Computed Tomogra phy 10/09/2024 7:41 AM CDT Narrative 10/09/2024 7:59 AM CDT EXAM DESCRIPTION: CT CHEST WO CONTRAST REASON FOR STUDY: R91.8 Abnormal finding on previous CT scan. Former smoker, Hx of COPD, pacemaker and open heart surgery. TECHNIQUE: CT scan of the chest performed without intravenous contrast using helical scanning technique. Reconstructed coronal and sagittal MPR images reviewed. All images stored on PACS. Automated exposure control was used as a dose optimization technique for this examination. COMPARISON: CT chest 08/08/2021 FINDINGS: The sensitivity for detection of solid visceral lesions is diminished without the use of intravenous contrast. LUNGS: There are postsurgical changes to the left upper lobe with associated scarring, similar to the comparison examination. The central airways are patent. There is no finding of pneumonia. There is an unchanged 6 mm solid noncalcified subpleural nodule in the left lower lobe on image 61 (when measuring similarly on both studies). In the right middle lobe there is a ground-glass/part solid nodule (series 3, image 60; series 5, image 108) measuring about 2.4 cm with a more dense, near solid 1.0 cm component. This nodule has increased in size, previously having a much more subtle ground-glass appearance and measuring about 1.5 cm. PLEURA: No effusion. No pneumothorax. MEDIASTINUM/NIKKI: Unchanged 10 mm precarinal lymph. Other small mediastinal lymph nodes appear similar. HEART: Heart size without pericardial effusion. There is a prosthetic aortic valve. There also appear to be changes of CABG. CORONARY ARTERY CALCIFICATION: Severe VASCULATURE: Moderate amount of calcified atherosclerotic plaque in the aorta without aneurism. AXILLA: No adenopathy. CHEST WALL: No masses. No subcutaneous air. HARDWARE/LINES/TUBES: Left subclavian pacing device and median sternotomy wires. UPPER ABDOMEN: No significant abnormality. MUSCULOSKELETAL: There is no suspicious osseous lesion. There are degenerative changes of the thoracic spine. OTHER: No other significant abnormality. IMPRESSION: 1. Increased size of a ground-glass/part solid nodule in the right middle lobe measuring up to 2.4 cm with a more dense, near solid 1.0 cm component. This is concerning for an adenocarcinoma spectrum nodule. Recommend pulmonology follow-up. At minimum there should be three-month follow-up CT chest. PET-CT could also be considered. 2. Unchanged 6 mm solid noncalcified subpleural nodule in the left lower lobe. 3. Postsurgical changes to the left upper lobe with associated scarring, similar to the comparison examination. 4. Unchanged 10 mm precarinal lymph node. Recent guidelines by the Fleischner Society (Radiology 647707,2017) divides patient into low vs. high risk (for example, patients who smoke are considered high risk) and provides followup recommendations as follows: SOLITARY PART-SOLID NODULE: Patients with a Solitary Part-Solid nodule less than 6 mm do not require follow-up. Larger than 6 mm Solitary Part-Solid nodule require CT in 3 to 6 months to confirm persistence. If unchanged and solid component below 6 mm, CT annually for 5 years. Note: Persistent part-solid nodules containing a solid component larger than 6 mm are highly suspicious. MULTIPLE SOLITARY PART-SOLID NODULES: Patients with Multiple Solitary Part-Solid nodules less than [address] in 3 to 6 months. If unchanged, consider CT in 2 and 4 years. Larger than 6 mm Multiple Solitary Part-Solid nodules require CT at 3 to 6 months. The management based on most suspicious nodule(s). Note: These recommendations do not apply to lung cancer screening, patients with immunosuppression, or patients with known primary cancer. http://pubs.rsna.org/doi/pdf/10.1148/radiol.7681338137 THIS IS AN ELECTRONICALLY VERIFIED FINAL REPORT 10/09/2024 7:59 AM - Electronically signed by Sea Ryder M.D. AM: AM Report ID: [id number] Reading Location: [place] [address] Procedure Note Sea Ryder MD - 10/09/2024 EXAM DESCRIPTION: CT CHEST WO CONTRAST REASON FOR STUDY: R91.8 Abnormal finding on previous CT scan. Former smoker, Hx of COPD, pacemakerand open heart surgery. TECHNIQUE: CT scan of the chest performed without intravenous contrastusing helical scanning technique. Reconstructed coronal and sagittal MPR images reviewed. All images stored on PACS. Automated exposure control was usedas a dose optimization technique for this examination. COMPARISON: CT chest 08/08/2021 FINDINGS: The sensitivity for detection of solid visceral lesions is diminishedwithout the use of intravenous contrast. LUNGS: There are postsurgical changes to the left upper lobe withassociated scarring, similar to the comparison examination. The central airways are patent. There is no finding of pneumonia. There is an unchanged 6 mm solid noncalcified subpleural nodule in theleft lower lobe on image 61 (when measuring similarly on both studies). In the right middle lobe there is a ground-glass/part solid nodule (series3, image 60; series 5, image 108) measuring about 2.4 cm with a more dense,near solid 1.0 cm component. This nodule has increased in size, previouslyhaving a much more subtle ground-glass appearance and measuring about 1.5 cm. PLEURA: No effusion. No pneumothorax. MEDIASTINUM/NIKKI: Unchanged 10 mm precarinal lymph. Other smallmediastinal lymph nodes appear similar. HEART: Heart size without pericardial effusion. There is a prosthetic aortic valve. There also appear to be changes of CABG. CORONARY ARTERY CALCIFICATION: Severe VASCULATURE: Moderate amount of calcified atherosclerotic plaque in the aorta without aneurism. AXILLA: No adenopathy. CHEST WALL: No masses. No subcutaneous air. HARDWARE/LINES/TUBES: Left subclavian pacing device and mediansternotomy wires. UPPER ABDOMEN: No significant abnormality. MUSCULOSKELETAL: There is no suspicious osseous lesion. There are degenerative changes of the thoracic spine. OTHER: No other significant abnormality. IMPRESSION: 1. Increased size of a ground-glass/part solid nodule in the right middle lobe measuring up to 2.4 cm with a more dense, near solid 1.0 cmcomponent. This is concerning for an adenocarcinoma spectrum nodule. Recommend pulmonology follow-up. At minimum there should be three-month follow-upCT chest. PET-CT could also be considered. 2. Unchanged 6 mm solid noncalcified subpleural nodule in the left lowerlobe. 3. Postsurgical changes to the left upper lobe with associated scarring, similar to the comparison examination. 4. Unchanged 10 mm precarinal lymph node. Recent guidelines by the Fleischner Society (Radiology 443165,2017)divides patient into low vs. high risk (for example, patients who smoke areconsidered high risk) and provides followup recommendations as follows: SOLITARY PART-SOLID NODULE: Patients with a Solitary Part-Solid noduleless than 6 mm do not require follow-up. Larger than 6 mm Solitary Part-Solid nodule require CT in 3 to 6 months to confirm persistence. If unchangedand solid component below 6 mm, CT annually for 5 years. Note: Persistent part-solid nodules containing a solid component larger than 6 mm arehighly suspicious. MULTIPLE SOLITARY PART-SOLID NODULES: Patients with Multiple Solitary Part-Solid nodules less than [address] in 3 to 6 months. Ifunchanged, consider CT in 2 and 4 years. Larger than 6 mm Multiple SolitaryPart-Solid nodules require CT at 3 to 6 months. The management based on mostsuspicious nodule(s). Note: These recommendations do not apply to lung cancer screening,patients with immunosuppression, or patients with known primary cancer. http://pubs.rsna.org/doi/pdf/10.1148/radiol.7941490551 THIS IS AN ELECTRONICALLY VERIFIED FINAL REPORT 10/09/2024 7:59 AM - Electronically signed by Sea Ryder M.D. AM: AM Report ID: [id number] Reading Location: [id number] Noel Fuentes MD IMG CT PROCEDURES Final Result * DEVICE CHECK - IN OFFICE (09/02/2024 9:39 AM CDT) Anatomical Region Laterality Modality Other Narrative 09/04/2024 11:15 AM CDT Medtronic Advisa Dual Pacemaker. Dx; Second Degree AVB, Bradycardia, PAF. DOI 11/29/[address] Schmidt[address] [facility] remote monitoring. Supervising MD: Dr Davidson. Office DDD Pacemaker evaluation demonstrated appropriate device function. Left pectoral incision well approximated without signs of infection. Battery function-2.93V, 1.5 years remaining battery longevity to SULLY. Appropriate lead measurements noted. Presenting rhythm-ASVP. Underlying iajoqk-[id number] 1 v-escape beat @ VVI 30 bpm. Consider Pacemaker Dependent. AP-3.2%, SKIN PILER-99.6%. 873 Atrial high rate episodes noted, iegm's AT/AF. 2 Ventricular high rate episodes noted 10/2023 & 07/2023, iegm's NSVT. Medications; Eliquis, Lopressor. No programming changes made to device settings today. Office device check expected in 1 year. fsboWOW remote f/u 12/16/2024. Rosalee Gupta, RN Renetta Barry MD [facility] PROCEDU RES Final Result * (ABNORMAL) Albumin Creatinine Ratio, Urine (08/04/2024 11:59 AM CDT) SCRIBED Creatinine, Urine 28 NA - NA EXTERNAL LAB SCRIBED Microalbumin 2.9 NA - NA EXTERNAL LAB SCRIBED Microalb/Creat Ratio 105.0 <=30 - NA EXTERNAL LAB Urine 08/04/2024 11:5 9 AM CDT Historical Provider LAB URINE ORDERABLES Edit ed Result - Final EXTERNAL LAB * Lipid panel (08/04/2024 11:59 AM CDT) SCRIBED Cholesterol, Total 127 30 - 199 mg/dL EXTERNAL LAB SCRIBED Triglycerides 89 <=149 mg/dL EXTERNAL LAB SCRIBED HDL 52 >=40 mg/dL EXTERNAL LAB SCRIBED LDL 57 <=129 mg/dL EXTERNAL LAB Scribed Non-HDL Cholesterol 0 NONE mg/dL EXTERNAL LAB Comment:No value given SCRIBED Total Cholesterol/HDL Ratio 127 NONE EXTERNAL LAB Blood 08/04/2024 11:5 9 AM CDT us Historical Provider LAB BLOOD ORDERABLES Edit ed Result - Final Performing Organization Address City/[facility]/ZIP Co de Phone Number EXTERNAL LAB * (ABNORMAL) Comprehensive metabolic panel (08/04/2024 11:59 AM CDT) SCRIBED Sodium 140 136 - 145 mmol/L EXTERNAL LAB SCRIBED Potassium 4.7 3.5 - 5 mmol/L EXTERNAL LAB SCRIBED Chloride 103 98 - 107 mmol/L EXTERNAL LAB SCRIBED Carbon Dioxide 25 22 - 31 mmol/L EXTERNAL LAB SCRIBED Urea Nitrogen (BUN) 19 9.0 - 25.0 mg/dl EXTERNAL LAB SCRIBED Creatinine 1.1 0.7 - 1.3 mg/dl EXTERNAL LAB SCRIBED Glucose 144(A) 72 - 99 mg/dl EXTERNAL LAB SCRIBED Calcium 9.0 8.4 - 10.4 mg/dl EXTERNAL LAB SCRIBED Bilirubin 0.3 0.2 - 1.2 mg/dl EXTERNAL LAB SCRIBED Plasma Protein 7.1 6.0 - 8.6 g/dl EXTERNAL LAB SCRIBED Albumin 4.3 3.4 - 5.0 g/dl EXTERNAL LAB SCRIBED Alkaline Phosphatase 44 40 - 150 Units/L EXTERNAL LAB SCRIBED Alanine Transaminase (ALT) 10 8 - 40 Units/L EXTERNAL LAB SCRIBED Aspartate Transaminase (AST) 12 5 - 34 Units/L EXTERNAL LAB SCRIBED eGFR in NonAfrican Swedish 70 NA - NA EXTERNAL LAB Blood 08/04/2024 11:5 9 AM CDT Historical Provider LAB BLOOD ORDERABLES Edit ed Result - Final EXTERNAL LAB * (ABNORMAL) DIABETES EYE EXAM (05/05/2024 7:33 AM SUSTAINABILITY PROJECT COORDINATOR) Historical Provider HEALTH MAINTENANCE Final Result * COLONOSCOPY (09/24/2017 7:34 AM CDT) Anatomical Region Laterality Modality Other Narrative Procedure Note Moises Dueñas MD - 09/24/2017 7:34 AM CDT [facility] Patient Name: William Garcia Procedure Date: 09/24/2017 7:34 AM Date of : 1950 Admit Type: Outpatient Age: 67 Gender: Male Attending MD: Moises Dueñas M.D. Room: [facility] ENDOSCOPY ROOM 1 Note Status: Finalized Procedure: Colonoscopy Indications: High risk colon cancer surveillance: Personalhistory of colonic polyps, Last colonoscopy: September 2012 Referring MD: Shefali Sanchez MD Providers: Moises Dueñas M.D. Impression: - Hemorrhoids found on perianal exam. - Two 5 to 15 mm polyps in the descending colon andin the ascending colon, removed with a hot biopsyforceps. Resected and retrieved. - Diverticulosis in the sigmoid colon. Recommendation: - Discharge patient to home. - Resume previous diet. - Continue present medications. - Await pathology results. - Repeat colonoscopy in 3 years for surveillance. - Return to primary care physician as previously scheduled. Medicines: Propofol per Anesthesia Complications: No immediate complications. Estimated Blood Loss: Estimated blood loss: none. Procedure: The benefits, risks and alternatives of theprocedure and sedation were discussed and informed consent was obtained. All questions were answered. Please referto the signed informed consent document in the medical record. The scope was passed under direct vision.The Colonoscope [id number] was introducedthrough the anus and advanced to the the cecum, identifiedby appendiceal orifice and ileocecal valve. The colonoscopy was performed without difficulty. The patient tolerated the procedure well. The quality of the bowel preparation was adequate to identifypolyps 6 mm and larger in size. Findings: Hemorrhoids were found on perianal exam. Two sessile polyps were found in the descending colon and ascending colon. The polyps were 5 to 15 mm in size. These polyps were removed with a hot biopsy forceps. Resection and retrieval were complete. Verification of patient identification for the specimen was done bythe physician and nurse using the patient's name and date.Estimated blood loss was minimal. Multiple small and large-mouthed diverticula were found in thesigmoid colon. The exam was otherwise normal throughout the examined colon. Electronically signed by Moises Dueñas M.D. Moises Dueñas M.D. 09/24/2017 8:32:03 AM Number of Addenda: 0 Note Initiated On: 09/24/2017 7:34 AM Procedure Code(s): --- Professional --- 75357, Colonoscopy, flexible; with removal of tumor(s), polyp(s), or other lesion(s) by hot biopsy forceps Diagnosis Code(s): --- Professional --- K57.30, Diverticulosis of large intestine without perforation orabscess without bleeding D12.2, Benign neoplasm of ascending colon D12.4, Benign neoplasm of descending colon K64.9, Unspecified hemorrhoids Z86.010, Personal history of colonic polyps CPT copyright 2017 [employer]. All rights reserved. The codes documented in this report are preliminary and upon transfusion aide reviewmay be revised to meet current compliance requirements. Recognized by the [place] [employer] for promoting quality in endoscopy Moises Dueñas MD ENDOSCOPY PROCEDURES Final Re sult from Last 3 Months or Most Recently Relevant to Health Maintenance Insurance AETNA MEDICARE AETNA MEDICARE [facility] Advance Directives For more information, please contact: [phone] Documents on File Type Date Recorded Patient Edge Stainer Machine Expl anation ADVANCE DIRECTIVE 11/12/2022 9:42 AM Power of Power And Recovery Superintendent For Health Care * Full Code (Latest Code Status on File) Date Activated Date Inactivated Comments 11/18/2020 11:10 AM 11/18/2020 3:47 PM * Full Code Date Activated Date Inactivated Comments 11/02/2020 2:45 PM 11/03/2020 10:17 PM * Full Code Date Activated Date Inactivated Comments 10/04/2017 12:12 PM 10/05/2017 2:46 PM * Full Code Date Activated Date Inactivated Comments 09/24/2017 7:10 AM 09/24/2017 11:34 AM Care Teams Power Plant Installer Relationship Specialty Start Date End Date Shefali Sanchez MD PCP - General 12/28/16
--- OUTSIDE RECORDS SUMMARY | 2024-11-12 11:21 | XMS_ITS | Encounter Summary ---
Author Organization [facility] Address [address] [place] [address] Care Team Providers Care Plaster Machine Operator Name Role Phone Shefali Sanchez MD Primary Care Provider Encounter Details Date Type Department Care Team (Late st Contact Info) Description 11/02/2024 Results Follow-Up [facility] Diabetes and Endocrinology [address] [place] [address] Sade Loza, EQUIPMENT VALIDATION ENGINEER [address] [facility] [address] [place] [address] Urinalysis reflex to microscopic and culture Urine, Urinalysis, microscopic only, Urine culture Urine Social History Tobacco Use Types Packs/Day Years Used Date Smoking Tobacco: Former Cigarettes Q uit: 02/20/2006 Smokeless Tobacco: Former Alcohol Use Standard Drinks/Week Comments No 1 [...] on file Legal 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 Gender Identity Not on file Sexual Orientation Not on file Occupation Industry Job Start Date Job End Date retired Not on file Not on file Not on file documented as of this encounter Ordered Prescriptions Prescription Sig Dispense Quantity Refills Last Filled Start Date End Date nitrofurantoin monohydrate (MACROBID) 100 mg capsuleIndications :Urinary Tract/Genitourinar y Infection Take 1 capsule (100 mg total) by mouth 2 (two) times a day for 7 days 14 capsule 11/02/2024 documented in this encounter Miscellaneous Notes * Telephone Encounter - Mary Anne Chung MA - 11/09/2024 10:31 AM CDT Please see message and advise. Thank you. * Result Encounter Note - Sade Loza NP - 11/04/2024 8:28 AM CDT Jesse Miranda, Your father's urine culture did not show any bacterial growth. Please have him finish the macrobid that was sent in 2 days ago. Have him keep pushing fluids & staying hydrated. Please call or send a Captify message if any questions. Thank you, Rickey Dunlap * Result Encounter Note - Sade Loza NP - 11/02/2024 5:43 PM CDT Jesse Miranda, Your father has large amounts of white blood cells, mucous, bacteria in his urine. As we discussed at his appointment--it may take up to 48 hours to get the culture back. I'm sending in macrobid 100mg twice daily for 7 days to Sent to [facility] in [place]. If the culture comes back as resistant to the macrobid--we may need to change to a different antibiotic. I'll let you know when I get it. Please call or send a mychart message if any questions. Thank you, Rickey Dunlap documented in this encounter Plan of Treatment Not on file documented as of this encounter Visit Diagnoses Diagnosis Acute cystitis without hematuria- Primary documented in this encounter Care Teams Plaster Machine Operator Relationship Specialty Start Date End Date Shefali Sanchez MD PCP - General 12/28/16 documented as of this encounter
--- OUTSIDE RECORDS SUMMARY | 2024-11-12 11:21 | XMS_ITS | Clinical Summary ---
Author Organization [facility] Address [address] [place] [address] Care Team Providers Care Ward Nurse Name Role Phone Shefali Sanchez MD Primary Care Provider [phone] Allergies No known active allergies Social History Tobacco Use Types Packs/Day Years Used Date Smoking Tobacco: Never Assessed Sex and Gender Information Value Date Recorded Sex Assigned at Not on file Legal Sex Male 11:02 AM CDT Gender Identity Not on file Sexual Orientation Not on file Plan of Treatment Health Maintenance Due Date Last Done Comments DIABETES ANNUAL RETINAL EXAM 1966 DIABETES MICROALBUMIN ANNUAL SCREEN 1966 LDL CHOLESTEROL ANNUAL 1966 DTAP/TDAP/TD VACCINES (1 - Tdap) 05/30/1967 PNEUMOCOCCAL VACCINE 50+ YEA RS (1 of 2 - PCV) 05/30/1967 ZOSTER VACCINE (1 of 2) 1998 DIABETES ANNUAL FOOT EXAM 02/22/2021 02/23/2020 DIABETES HBA1C Q 6 MONTHS 05/06/20212020, 11/02/2020, 10/27/2020 RSV VACCINE (60+ or ) (1 - 1-dose 75+ series) 05/30/2023 INFLUENZA VACCINE (#1) 2024 Medical Devices Implanted Type Area Scale Shooter Device Identifier Shelf Expiration Date Model / Serial / Lot [employer] Bovine Heart Valve Cardiovascular Device Medtronic Advisa Pacemaker-11/29 Implanted:11/16 (Quantity not on file) Pacemaker [id number] / [id number] / Description:Pt follows up [facility] [phone]. Spoke to [employer] rep on 12/01/2020: entire device is MRI condtional for 1.5- 3.0 graciela, as long as SureScan mode is followed. ABG Insurance AETNA HMO MCR * Guarantor: OLD [address] [facility] (C) Account Type Relation to Patient Date of Phone Billing Address Corporate Other DEFAULT ADDRESS [address] [employer] Care Teams Ward Nurse Relationship Specialty Start Date End Date Shefali Sanchez MD [address] [place] [address] PCP - General Family Practice 12/20/20
--- OUTSIDE RECORDS SUMMARY | 2024-11-12 11:21 | XMS_ITS | Clinical Summary ---
Author Organization [facility] Address [address] [place] [address] Phone Care Team Providers Care Account Officer Name Role Phone Shefali Sanchez MD Primary Care Provider [phone] Medications Insulin Aspart FlexPen 100 UNIT/ML Solution Pen-injector 8 Units by Subcutaneous route 3 times daily (before meals). 8 units before breakfast 10 units before lunch 10 units before dinner 3 Active metFORMIN (GLUCOPHAGE) 1000 MG Tablet Take 1,000 mg by mouth 2 times daily (with meals). 0 Active memantine (NAMENDA) 5 MG Tablet Take 5 mg by mouth 2 times daily. 5 Active empagliflozin (Jardiance) 25 MG Tablet Take 25 mg by mouth daily. Active lisinopril (PRINIVIL, ZESTRIL) 20 MG Tablet Take 20 mg by mouth daily. Active apixaban (Eliquis) 5 MG Tablet Take 5 mg by mouth 2 times daily. Active metoprolol tartrate (LOPRESSOR) 25 MG Tablet Take 25 mg by mouth 2 times daily. Active cilostazol (PLETAL) 50 MG Tablet Take 50 mg by mouth 2 times daily. Active finasteride (PROSCAR) 5 MG Tablet Take 5 mg by mouth nightly. Active atorvastatin (LIPITOR) 40 MG Tablet Take 40 mg by mouth nightly. Active Dulaglutide (Trulicity) 0.75 MG/0.5ML Solution Auto-injector 0.75 mg by Subcutaneous route once a week. Patient takes on Fridays Active albuterol 108 (90 Base) MCG/ACT Aerosol Solution take 2 Puffs by inhalation every 6 hours as needed for Wheezing. Active aspirin EC 81 MG Tablet Delayed Response Take 81 mg by mouth daily. Active budesonide-form oterol fumarate (SYMBICORT) 160-4.5 MCG/ACT Aerosol take 2 Puffs by inhalation 2 times daily. Active cetirizine (ZyrTEC) 10 MG Tablet Take 10 mg by mouth daily. Active ergocalciferol (VITAMIN D) 96972 UNIT Capsule Take 50,000 Units by mouth once a week. Active tiotropium (SPIRIVA) 18 MCG Capsule take 1 Puff by inhalation daily. Active mometasone furo-formoterol fum (Dulera) 100-5 MCG/ACT Aerosol take 2 Puffs by inhalation every 12 hours. Active polyethylene glycol (GLYCOLAX, MIRALAX) 17 g Pack Take 1 Packet by mouth daily. Dissolve in 4-8 oz of liquid. 90 Packet Active tamsulosin (FLOMAX) 0.4 MG Capsule Take 1 Capsule by mouth every morning. 90 Capsule Active Active Problems Problem Noted Date Diagnosed Date Acute respiratory failure with hypoxia Community acquired pneumonia 05/25/2024 COPD exacerbation 05/25/2024 Influenza A 05/25/2024 Prolonged Q-T interval on ECG 05/25/2024 Type 2 diabetes mellitus 05/25/2024 Hypertension 05/25/2024 Hyperlipidemia 05/25/2024 Coronary artery disease 05/25/2024 Peripheral artery disease 05/25/2024 Hx of CABG 05/25/2024 Pacemaker 05/25/2024 History of CVA (cerebrovascular accident) 2024 History of prostate cancer 05/25/2024 BPH (benign prostatic hyperplasia) 05/25/2024 Severe sepsis 05/25/2024 Social History Tobacco Use Types Packs/Day Years Used Date Smoking Tobacco: Former Cigarettes Tobacco Cessation:Counseling Given: Not Answered Alcohol Use Standard Drinks/Week Comments Not Currently 0 (1 standard drink = 0.6 oz pur e alcohol) [facility] Utilities Answer Date Recorded In the past 12 months has e [employer], gas, oil, or water [employer] threatened to shut off services in your home? No 05/25/2024 Hunger Vital Sign Answer Date Recorded Within the past 12 months, y ou worried that your food would run out before you got the money to buy more. Never true 05/26/19 25 Within the past 12 months, t he food you bought just didn't last and you didn't have money to get more. Never true 05/25/2024 PRAPARE - Transportation Answer Date Re corded In the past 12 months, has l ack of transportation kept you from medical appointments or from getting medications? No 05/16 In the past 12 months, has l ack of transportation kept you from meetings, work, or from getting things needed for daily living? No 05/25/2024 Housing Stability Vital Sign Answer Neel e Recorded In the last 12 months, was t here a time when you were not able to pay the mortgage or rent on time? No 05/25/2024 In the past 12 months, how m any times have you moved where you were living? 0 05/25/2024 At any time in the past [address] [facility], were you homeless or living in a skilled nursing (including now)? No 05/25/2024 Sex and Gender Information Value Date Recorded Sex Assigned at Not on file Legal Sex Male 10:11 AM CDT Gender Identity Not on file Sexual Orientation Not on file Last Filed Vital Signs Vital Sign Reading Time Taken Comments Blood Pressure 140/58 2024 7:56 AM CDT Pulse 75 2024 7:56 AM CDT Temperature 36.1 C (96.9 F) 2024 7:56 AM CDT Respiratory Rate 18 2024 7:56 AM CDT Oxygen Saturation 96% 2024 8:19 AM CDT Inhaled Oxygen Concentration - - Weight 83.6 kg (184 lb 6.4 oz) 05/25/2024 1:48 A M CDT Height 160 cm (5' 3) 05/25/2024 1:48 AM CDT Body Mass Index 32.66 05/25/2024 1:48 AM CDT Plan of Treatment Health Maintenance Due Date Last Done Comments Diabetes: Eye Exam 1950 Diabetes: Foot Exam 1950 Hepatitis C Virus (HCV) Screening 1950 Respiratory Syncytial Virus (RSV) Immunization (Adult) (1 - 1-dose 75+ series) 05/30/2023 SARS-COV-2 Immunization ( season) 2023 06/08/2021, 06/08/2020, 05/12/2020 Diabetes: Hemoglobin A1c 11/02/2024 05/05/2024 Influenza Immunization (#1) 2024 10/0 10/2023, 12/16/2022, 12/22/2021, Additional history exists Diabetes: Nephropathy Screening 05/24/2025 05/24/2024 Zoster Immunization Completed 01/17/2020, 12/18/2019, 11/17/2019 Pneumococcal Immunization (50+ years) Completed 12/22/2021, 08/05/2020, 09/26/2016, Additional history exists Pneumococcal Immunization Combined Discontinued 12/22/2021, 08/05/2020, 09/26/2016, Additional history exists DTaP/Tdap/Td Immunization Discontinued 01/10/2024, TdaP Immunization Completed 01/10/2024, 06/28/2021 Hepatitis B Immunization Aged Out No longer eligible based on patient's age to complete this topic Human Papillomavirus (HPV) Immunization Aged Out No longer eligible based on patient's age to complete this topic Meningococcal Immunization (ACWY) Aged Out No longer eligible based on patient's age to complete this topic Rotavirus Immunization Aged Out No lo nger eligible based on patient's age to complete this topic Procedures Procedure Name Priority Date/Time Associated Diagnosis Comments CMP (COMPREHENSIVE METABOLIC PANEL) STAT 05/24/2024 6:12 PM CDT from Last 3 Months or Most Recently Relevant to Health Maintenance Results * (ABNORMAL) Comprehensive Metabolic Panel (Cmp) VXY057 (05/24/2024 6:12 PM CDT) SODIUM 142 136 - 145 mmol/L 05/24/2024 6:58 PM CDT [facility] POTASSIUM 4.4 3.5 - 5.1 mmol/L 05/24/2024 6:58 PM CDT [facility] CHLORIDE 107 98 - 107 mmol/L 05/24/2024 6:58 PM CDT [facility] CO2, VENOUS 23 22 - 30 mmol/L 05/24/2024 6:58 PM CDT [facility] ANION GAP 16.4 <18.0 mmol/L 05/24/2024 6:58 PM CDT [facility] GLUCOSE 58(L) 70 - 99 mg/dL 05/24/2024 6:58 PM CDT [facility] BUN 25 8 - 26 mg/dL 05/24/2024 6:58 PM CDT [facility] CREATININE, BLOOD 1.28 0.70 - 1.30 mg/dL 05/24/2024 6:58 PM CDT [facility] BUN/CREATININE RATIO 20 12 - 20 ratio 05/24/2024 6:58 PM CDT [facility] TOTAL PROTEIN 7.5 6.0 - 8.0 g/dL 05/24/2024 6:58 PM CDT [facility] ALBUMIN 4.1 3.5 - 5.0 g/dL 05/24/2024 6:58 PM CDT [facility] A/G RATIO 1.2 1.0 - 2.2 05/24/2024 6:58 PM CDT [facility] CALCIUM 9.1 8.7 - 10.5 mg/dL 05/24/2024 6:58 PM CDT [facility] T BILI 0.3 0.2 - 1.2 mg/dL 05/24/2024 6:58 PM CDT [facility] SGOT (AST) 21 <43 U/L 05/24/2024 6:58 PM CDT [facility] SGPT (ALT) 16 <56 U/L 05/24/2024 6:58 PM CDT [facility] ALKALINE PHOSPHATASE 42 40 - 150 U/L 05/24/2024 6:58 PM T [facility] GFR, ESTIMATED 58(L) >=60 05/24/2024 6:58 PM CDT [facility] Comment: Creatinine Clearance is the preferred criteria for selecting drug dose adjustments in renally impaired patients. The GFR is provided as additional pertinent clinical information. GFR is reported in mL/min/1.73 sq m. Calculation based on the Chronic Kidney Disease Epidemiology Collaboration (CKD- EPI) equation refit without adjustment for race. GFR, EST. >60 >=60 025 6:58 PM CDT [facility] GFR, EST. 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 PRE-ARREST: Use entire range of life support measures to stabilize the patient. Care Teams Account Officer Relationship Specialty Start Date End Date Shefali Sanchez MD [address] [place] [address] PCP - General Family Medicine 05/24/24
[2024-11-12 11:30] LABS: Add Urine Microscopic? NO; Appearance Urine Clear (Clear); Glucose Urine UA 3+ (Negative); Leukocyte Esterase Ur Negative (Negative); Nitrate Urine Negative (Negative); Specific Grav Ur <= 1.005 (1.010-1.020)
== END 2024-11-12 11:15 | disposition home or self-care (01) ==
LOC: CHSLAB 11:17
PROVIDERS: PCP Family Medicine; Visit Provider Family Medicine
DX: R35.0 Frequency of micturition (principal)
CPT/HCPCS: 81003; 87086